=== PATIENT | male | born 1990 | race Caucasian/White ===

== ENCOUNTER 2016-09-02 17:58 | Emergency (ER) | payer BC ==
--- OUTSIDE RECORDS SUMMARY | 2016-09-02 18:22 | XMS REPORT | Summary of Care ---
:1990 Author Organization [facility] Address [address] [place] [address] Care Team Providers Name Role Phone Cherrie Palmerfer Marleni Primary Care Physician Encounter Date(s): 05/16/16 - 05/16/16 [facility] [address], [address] [place], [place] [address] Discharge Disposition: 01 Discharged to Home or Self Care Attending Physician: Lamberto Bro MD Referring Physician: Lamberto Bro MD Vital Signs Most recent to oldest [Reference Range]: 1 Peripheral Pulse Rate [60-100 bpm] 83 bpm (05/16/16 9:11 AM) Blood Pressure [90-130/60-90 mmHg] 150/100mmHg *HI* (05/16/16 9:11 AM) Mean Arterial Pressure, Cuff 117 mmHg (05/16/16 9:11 AM) Most recent to oldest [Reference Range]: 1 Height/Length Measured 178 cm (05/16/16 9:11 AM) Problem List Condition Effective Dates Status Health Status Informant Deficiency of testosterone Active biosynthesis(Confirmed) Diabetes(Confirmed) Active Diabetic polyneuropathy(Confirmed) Active Chronic GERD(Confirmed) Active Hyperbilirubinemia(Confirmed) Active Hypercholesteremia(Confirmed) Active Hypertension(Confirmed) Active Morbid obesity(Confirmed) Active Obsessive behavior(Confirmed) Active Spondylolisthesis(Confirmed) Active Allergies, Adverse Reactions, Alerts No Known Medication Allergies Medications Augmentin 875 mg-125 mg oral tablet 875 mg, Oral, q12hr interval, # 10 tab(s), 0 Refill(s), Start Date: 08/15/15 13: 21:00 CDT Start Date: 08/15/15 Stop Date: 09/04/15 Status: Discontinuedcalcitriol 0.5 mcg oral capsule 1 cap(s), Oral, Daily, # 30 cap(s), 6 Refill(s), Start Date: 12/05/15 11:59:00 CDT, Pharmacy: [place], [place] Start Date: 12/05/15 Stop Date: 04/15/16 Status: CompletedCymbalta 20 mg oral delayed release capsule 1 cap(s), Oral, Daily, do not crush or chew, # 30 cap(s), 1 Refill(s), Start Date: 12/04/15 9:40:00 CDT, Pharmacy: [place], [place] Special Instructions: do not crush or chew Start Date: 12/04/15 Stop Date: 12/28/15 Status: DiscontinuedDULoxetine 40 mg oral delayed release capsule 1 cap(s), Oral, Daily, # 30 cap(s), 2 Refill(s), Start Date: 12/28/15 9:07:00 CDT, Pharmacy: [place], [place] Start Date: 12/28/15 Stop Date: 02/29/16 Status: DiscontinuedDULoxetine 60 mg oral delayed release capsule 1 cap(s), Oral, Daily, Cancel 40 mg prescription, do not crush or chew, # 30 cap (s), 3 Refill(s), Start Date: 01/25/16 20:59:00 CDT, Pharmacy: [place], [place] Special Instructions: Cancel 40 mg prescription, do not crush or chew Start Date: 01/25/16 Status: Orderedfolic acid 1 mg oral tablet 1 tab(s), Oral, Daily, # 30 tab(s), 0 Refill(s), Start Date: 09/04/15 9:12:00 CDT, Pharmacy: [place], [place] Start Date: 09/04/15 Stop Date: 12/04/15 Status: Discontinuedgabapentin 100 mg oral capsule 2 cap(s), Oral, TID, # 180 cap(s), 1 Refill(s), Start Date: 09/14/15 9:02:00 CDT , Pharmacy: [place], [place] Start Date: 09/14/15 Stop Date: 10/12/15 Status: Completedgabapentin 300 mg oral capsule 1 cap(s), Oral, TID, # 90 cap(s), 0 Refill(s), Start Date: 10/12/15 11:29:00 CDT , Pharmacy: [facility] [place], [place] Start Date: 10/12/15 Stop Date: 12/04/15 Status: Discontinuedgabapentin 600 mg oral tablet 1 tab(s), Oral, QID, # 120 tab(s), 1 Refill(s), Start Date: 02/29/16 9:37:42 FORENSIC TECHNICIAN , Pharmacy: [facility] [place], [place] Start Date: 02/29/16 Stop Date: 03/29/16 Status: Discontinuedgabapentin 600 mg oral tablet 1 tab(s), Oral, QID, # 120 tab(s), 1 Refill(s), Start Date: 12/28/15 9:14:00 CDT , Pharmacy: [facility] [place] Start Date: 12/28/15 Stop Date: 02/29/16 Status: Discontinuedglimepiride 2 mg oral tablet 1 tab(s), Oral, Daily, 0 Refill(s), Start Date: 08/12/15 17:19:00 CDT Start Date: 08/12/15 Stop Date: 08/15/15 Status: Discontinuedlactulose 10 g/15 mL oral syrup 15 mL, Oral, Daily, # 450 mL, 0 Refill(s), Start Date: 09/04/15 9:12:00 CDT, Pharmacy: [facility] [place] Start Date: 09/04/15 Stop Date: 10/12/15 Status: DiscontinuedLantus 100 units/mL subcutaneous solution 10 units, Subcutaneous, HS, 0 Refill(s), Start Date: 08/12/15 17:19:00 CDT Start Date: 08/12/15 Stop Date: 12/04/15 Status: DiscontinuedLantus 100 units/mL subcutaneous solution 10 units, Subcutaneous, Daily, If fasting blood glucose is>130, increase by 2 units every 3 days. rotate injection sites, # 10 mL, 0 Refill(s), Start Date: 03/29/16 8:48:00 FORENSIC TECHNICIAN, Pharmacy: [place], [place] Special Instructions: If fasting blood glucose is>130, increase by 2 units every 3 days. rotate injection sites Start Date: 03/29/16 Stop Date: 04/28/16 Status: Orderedlisinopril 10 mg oral tablet 1 tab(s), Oral, Daily, 0 Refill(s), Start Date: 08/12/15 17:19:00 CDT Start Date: 08/12/15 Stop Date: 09/14/15 Status: Discontinuedlisinopril-hydrochlorothiazide 20 mg-12.5 mg oral tablet 1 tab(s), Oral, Daily, # 30 tab(s), 11 Refill(s), Start Date: 09/14/15 8:53:00 CDT, Pharmacy: [facility] [place] Start Date: 09/14/15 Stop Date: 12/04/15 Status: Discontinuedlisinopril-hydrochlorothiazide 20 mg-12.5 mg oral tablet 1 tab(s), Oral, Daily, # 30 tab(s), 11 Refill(s), Start Date: 12/28/15 9:19:15 CDT, Pharmacy: [facility] [place] Start Date: 12/28/15 Status: OrderedLORazepam 0.5 mg oral tablet 1 tab(s), Oral, TID, PRN for anxiety, # 90 tab(s), 0 Refill(s), Start Date: 9:06:00 FORENSIC TECHNICIAN, Pharmacy: [place], [place] Start Date: 03/29/16 Stop Date: 04/27/16 Status: CompletedLORazepam 0.5 mg oral tablet 1 tab(s), Oral, TID, PRN for anxiety, # 90 tab(s), 0 Refill(s), Start Date: 11:03:09 FORENSIC TECHNICIAN, Pharmacy: [place], [place] Start Date: 04/27/16 Stop Date: 05/27/16 Status: OrderedLORazepam 1 mg oral tablet 1 tab(s), Oral, TID, PRN for anxiety, # 12 tab(s), 0 Refill(s), Start Date: 13:29:00 CDT, Pharmacy: [facility] Start Date: 10/26/15 Stop Date: 12/04/15 Status: CompletedLORazepam 1 mg oral tablet 1 tab(s), Oral, TID, PRN for anxiety, # 12 tab(s), 0 Refill(s), Start Date: 9:08:06 CDT, Pharmacy: [place], [place] Start Date: 12/28/15 Stop Date: 01/25/16 Status: CompletedLORazepam 1 mg oral tablet 1 tab(s), Oral, TID, PRN for anxiety, # 30 tab(s), 1 Refill(s), Start Date: 20:59:05 CDT, Pharmacy: [place] Start Date: 01/25/16 Stop Date: 02/29/16 Status: DiscontinuedLORazepam 1 mg oral tablet 1 tab(s), Oral, TID, PRN for anxiety, # 30 tab(s), 1 Refill(s), Start Date: 9:37:39 FORENSIC TECHNICIAN, Pharmacy: [place] Start Date: 02/29/16 Stop Date: 03/29/16 Status: DiscontinuedLORazepam 1 mg oral tablet 1 tab(s), Oral, TID, PRN for anxiety, # 12 tab(s), 0 Refill(s), Start Date: 05/19 9:41:29 CDT, Pharmacy: [place] Start Date: 12/04/15 Stop Date: 12/28/15 Status: DiscontinuedLyrica 100 mg oral capsule 1 cap(s), Oral, TID, Patient failed trial of gabapentin, # 90 cap(s), 2 Refill(s ), Start Date: 12/07/15 15:35:00 CDT, Pharmacy: [place], [place] Special Instructions: Patient failed trial of gabapentin Start Date: 12/07/15 Stop Date: 12/28/15 Status: DiscontinuedLyrica 150 mg oral capsule 1 cap(s), Oral, TID, 0 Refill(s), Start Date: 05/16/16 9:14:00 FORENSIC TECHNICIAN Start Date: 05/16/16 Status: OrderedLyrica 75 mg oral capsule 1 cap(s), Oral, BID, # 60 cap(s), 0 Refill(s), Start Date: 04/21/16 9:48:34 FORENSIC TECHNICIAN , Pharmacy: [place], [place] Start Date: 04/21/16 Stop Date: 05/16/16 Status: CompletedLyrica 75 mg oral capsule 1 cap(s), Oral, BID, # 60 cap(s), 0 Refill(s), Start Date: 03/29/16 8:47:00 FORENSIC TECHNICIAN , Pharmacy: [place] Start Date: 03/29/16 Stop Date: 04/21/16 Status: Completedmeloxicam 15 mg oral tablet 1 tab(s), Oral, Daily, # 30 tab(s), 0 Refill(s), Start Date: 03/02/16 9:15:00 FORENSIC TECHNICIAN, Pharmacy: [place], [place] Start Date: 03/02/16 Stop Date: 04/15/16 Status: CompletedONETOUCH NICK ULTRA BL 0 Refill(s), Supply Start Date: 09/14/15 Status: OrderedPen [place] Mini 31G 5mm 100 EA, Subcutaneous, Daily, # 1 boxes, 2 Refill(s), Pharmacy: [place], [place], Supply Start Date: 03/29/16 Stop Date: 12/24/16 Status: OrderedpredniSONE 10 mg oral tablet 1 tab(s), Oral, Daily, # 30 tab(s), 0 Refill(s), Start Date: 03/22/16 8:27:00 FORENSIC TECHNICIAN, Pharmacy: [place] Start Date: 03/22/16 Stop Date: 05/16/16 Status: CompletedpredniSONE 20 mg oral tablet 2 tab(s), Oral, Daily, # 20 tab(s), 0 Refill(s), Start Date: 10/02/15 14:02:00 CDT, Pharmacy: [place] Start Date: 10/02/15 Stop Date: 10/12/15 Status: CompletedProtonix 40 mg oral delayed release tablet 1 tab(s), Oral, Daily, # 30 tab(s), 2 Refill(s), Start Date: 09/14/15 8:51:45 CDT, Pharmacy: [place] Start Date: 09/14/15 Stop Date: 12/04/15 Status: DiscontinuedProtonix 40 mg oral delayed release tablet 1 tab(s), Oral, Daily, # 30 tab(s), 0 Refill(s), Start Date: 08/15/15 13:22:00 CDT Start Date: 08/15/15 Stop Date: 09/14/15 Status: DiscontinuedsulfaSALAzine 500 mg oral tablet 1 tab(s), Oral, BID, # 60 tab(s), 0 Refill(s), Start Date: 04/15/16 10:11:00 FORENSIC TECHNICIAN , Pharmacy: [place] Start Date: 04/15/16 Stop Date: 05/16/16 Status: DiscontinuedTest Strips Other (See Comment) 100 EA, Subcutaneous, Daily, 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, # 1 boxes, 3 Refill (s), Pharmacy: [place], [place], Supply Special Instructions: 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 Start Date: 09/14/15 Stop Date: 09/08/16 Status: Orderedtestosterone 20.25 mg/1.25 g (1.62%) transdermal gel 1 packet(s), Topical, qAM, May substitute any covered transdermal testosterone gel/cream, # 30 EA, 5 Refill(s), Start Date: 12/07/15 10:10:00 CDT, Pharmacy: [place], [place] Special Instructions: May substitute any covered transdermal testosterone gel/ cream Start Date: 12/07/15 Stop Date: 12/28/15 Status: Discontinuedtestosterone cypionate 100 mg/mL intramuscular solution 1 mL, IM, q2wk, # 3 mL, 5 Refill(s), Start Date: 12/28/15 9:09:00 CDT, Pharmacy : [place], [place] Start Date: 12/28/15 Status: OrderedtraMADol 50 mg oral tablet 2 tab(s), Oral, q8hr interval, PRN for pain, take with tylenol, # 60 tab(s), 0 Refill(s), Start Date: 10/12/15 11:32:57 CDT Special Instructions: take with tylenol Start Date: 10/12/15 Stop Date: 10/12/15 Status: CompletedtraMADol 50 mg oral tablet 2 tab(s), Oral, q8hr interval, PRN for pain, take with tylenol, X 30 days, # 180 tab(s), 1 Refill(s), Start Date: 10/20/15 13:47:13 CDT, Pharmacy: [place], [place] Special Instructions: take with tylenol Start Date: 10/20/15 Stop Date: 10/21/15 Status: CompletedtraMADol 50 mg oral tablet 2 tab(s), Oral, TID, PRN for pain, new dose, # 180 tab(s), 1 Refill(s), Start Date: 12/29/15 12:19:21 CDT, Pharmacy: [place] Special Instructions: new dose Start Date: 12/29/15 Stop Date: 02/29/16 Status: DiscontinuedtraMADol 50 mg oral tablet 1 tab(s), Oral, TID, PRN for pain, new dose, # 90 tab(s), 0 Refill(s), Start Date: 03/29/16 9:06:06 FORENSIC TECHNICIAN, Pharmacy: [place] Special Instructions: new dose Start Date: 03/29/16 Stop Date: 05/16/16 Status: CompletedtraMADol 50 mg oral tablet 2 tab(s), Oral, q12hr, PRN for pain, # 60 tab(s), 0 Refill(s), Start Date: 10/26 8:41:00 CDT Start Date: 10/27/15 Stop Date: 12/14/15 Status: DiscontinuedtraMADol 50 mg oral tablet 2 tab(s), Oral, q12hr, PRN for pain, # 120 tab(s), 0 Refill(s), Start Date: 03/18 11:16:21 CDT, Pharmacy: [place] Start Date: 12/14/15 Stop Date: 12/28/15 Status: DiscontinuedtraMADol 50 mg oral tablet 2 tab(s), Oral, q12hr, PRN for pain, # 120 tab(s), 1 Refill(s), Start Date: 9:07:54 CDT, Pharmacy: [place] Start Date: 12/28/15 Stop Date: 12/29/15 Status: CompletedtraMADol 50 mg oral tablet 2 tab(s), Oral, q12hr, PRN for pain, # 120 tab(s), 0 Refill(s), Start Date: 03/18 11:15:30 CDT, Pharmacy: [place] Start Date: 12/14/15 Stop Date: 12/14/15 Status: CompletedtraMADol 50 mg oral tablet 2 tab(s), Oral, TID, PRN for pain, new dose, # 180 tab(s), 0 Refill(s), Start Date: 02/29/16 9:37:43 FORENSIC TECHNICIAN, Pharmacy: [place], [place] Special Instructions: new dose Start Date: 02/29/16 Stop Date: 03/29/16 Status: DiscontinuedtraMADol 50 mg oral tablet 2 tab(s), Oral, q8hr interval, PRN for pain, take with tylenol, # 180 tab(s), 1 Refill(s), Start Date: 10/21/15 13:18:07 CDT, Pharmacy: [place] Special Instructions: take with tylenol Start Date: 10/21/15 Stop Date: 10/27/15 Status: CompletedtraMADol 50 mg oral tablet 2 tab(s), Oral, q12hr, PRN for pain, # 120 tab(s), 0 Refill(s), Start Date: 03/18 11:13:00 CDT, Pharmacy: [place] Start Date: 12/14/15 Stop Date: 12/14/15 Status: CompletedtraMADol 50 mg oral tablet 2 tab(s), Oral, q8hr interval, PRN for pain, take with tylenol, # 60 tab(s), 0 Refill(s), Start Date: 10/02/15 14:38:00 CDT, Pharmacy: [place] Special Instructions: take with tylenol Start Date: 10/02/15 Stop Date: 10/12/15 Status: CompletedtraMADol 50 mg oral tablet 2 tab(s), Oral, q8hr interval, PRN for pain, take with tylenol, # 60 tab(s), 0 Refill(s), Start Date: 10/12/15 11:33:36 CDT Special Instructions: take with tylenol Start Date: 10/12/15 Stop Date: 10/20/15 Status: CompletedTums 500 mg oral tablet, chewable 1 tab(s), Chewed, TID, PRN indigestion, 0 Refill(s), Start Date: 08/15/15 13:21: 00 CDT Start Date: 08/15/15 Stop Date: 09/02/15 Status: CompletedValium 10 mg oral tablet 1 tab(s), Oral, ONETIME, PRN for anxiety, Take 1 hour prior to MRI, # 1 tab(s), 0 Refill(s), Start Date: 04/15/16 11:21:00 FORENSIC TECHNICIAN, called to pharmacy (Rx) Special Instructions: Take 1 hour prior to MRI Start Date: 04/15/16 Stop Date: 05/16/16 Status: CompletedValium 5 mg oral tablet 1 tab(s), Oral, ONETIME, # 1 tab(s), 0 Refill(s), Start Date: 12/18/15 14:13:00 CDT, Pharmacy: [place], [place] Start Date: 12/18/15 Stop Date: 12/28/15 Status: DiscontinuedVictoza 18 mg/3 mL subcutaneous solution 1.2 mg, Subcutaneous, Daily, # 6 mL, 0 Refill(s), Start Date: 09/14/15 9:02:00 CDT, Pharmacy: [place], [place] Start Date: 09/14/15 Stop Date: 12/04/15 Status: Discontinued Results No data available for this section Immunizations No data available for this section Procedures Procedure Date Related Diagnosis Body Site Myringotomy 1990 Arm1 Rhinoplasty [place] tooth2 1left arm needed to be [id number] Social History No data available for this section Assessment and Plan No data available for this section
--- OUTSIDE RECORDS SUMMARY | 2016-09-02 18:22 | XMS REPORT | Continuity of Care Document ---
:1990 Author Organization ([facility]) Address [address] [place] [address] Phone [phone] Care Team Providers Name Role Phone BenjaminFreddyDuffyDaren ga Primary Care Provider [phone] Source Comments This disclosure is being made pursuant to the Care Everywhere program, applicable federal and state laws, and may not contain all informaitonavailable regarding this patient. ([facility]) Active Allergies and Adverse Reactions No Known Allergies Current Medications Prescription Sig. Disp. Refills Start Date End Date Status LANTUS 100 unit/mL Inject 10 Units 07/15/2015 Active injection vial subcutaneously at bedtime. lisinopril-hydrochlor Take 1 tablet by mouth 09/14/2015 Active othiazide 20-12.5 mg daily. per tablet gabapentin 100 mg Take 200 mg by mouth 3 09/14/2015 Active capsule times daily. SUPPLY ONE TOUCH 09/14/2015 Active ULTRA test strips pantoprazole 40 mg EC Take 40 mg by mouth 09/14/2015 Active tablet daily. Active Problems Problem Noted Date Abnormal liver enzymes 09/28/2015 Chest pain, unspecified 12/23/2003 Most Recent Encounters Date Type Specialty Providers Description 08/16/2016 Telephone Urology Pedro Potts MD Chief Comp: External Referral Social History Tobacco Use Types Packs/Day Years Used Date Passive Smoke Exposure - Never Smoker Cigarettes 1 Smokeless Tobacco: Former User Tobacco Cessation:Counseling Given: Yes Comments: Alcohol Use Drinks/Week oz/Week Comments No Last Filed Vital Signs Vital Sign Reading Time Taken Blood Pressure 123/58 09/28/2015 11:00 AM CDT Pulse 114 09/28/2015 11:00 AM CDT Temperature 36.8 C (98.2 F) 09/28/2015 11:00 AM CDT Respiratory Rate 20 12/23/2003 1:01 PM CDT Height 1.778 m (5' 10") 09/28/2015 11:00 AM CDT Weight 109 kg (240 lb 4.8 oz) 09/28/2015 11:00 AM CDT Body Mass Index 34.48 09/28/2015 11:00 AM CDT Oxygen Saturation - - Plan of Care Date Type Specialty Providers Description 09/29/2016 Appointment Urology Perdo Potts MD [address] [place] [address] [phone] (Fax) Chief Comp: Patient Anuradha CAROL Ibarra [address] [place] [address] [phone] (Fax) Reported Reason For Visit Health Maintenance Due Date Last Done Comments Hepatitis B Vaccine (1 of 3 - Primary Series) 1990 Tdap Vaccine 12/25/1999 Lipid Disorder Screening 2006 MMR Vaccine 2006 Td Vaccine 2006 Varicella Vaccine (1 of 2 - Adult - No Evidence of 2006 Immunity) Influenza Vaccine: Seasonal (Season Ended) 2016 Results from Last 3 Months Not on file
--- OUTSIDE RECORDS SUMMARY | 2016-09-02 18:22 | XMS REPORT | Summary of Care ---
:1990 Author Organization [facility] Address [address] [place] [address] Care Team Providers Name Role Phone Cherrie Palmerfer Marleni Primary Care Physician Encounter Date(s): 04/15/16 - 04/15/16 [facility] Yeimi Cross, [address] [place], [place] [address] Discharge Diagnosis: Pain in right hip Discharge Disposition: 01 Discharged to Home or Self Care Attending Physician: Lamberto Bro MD Referring Physician: Lamberto Bro MD Vital Signs Most recent to oldest [Reference Range]: 1 Peripheral Pulse Rate [60-100 bpm] 89 bpm (04/15/16 9:25 AM) Blood Pressure [90-130/60-90 mmHg] 136/98mmHg *HI* (04/15/16 9:25 AM) Mean Arterial Pressure, Cuff 111 mmHg (04/15/16 9:25 AM) Height/Length Measured 178 cm (04/15/16 9:25 AM) Weight Dosing 113.10 kg1 (04/15/16 9:28 AM) Weight Measured 113.1 kg (04/15/16 9:25 AM) BSA Measured 2.29 m2 (04/15/16 9:25 AM) Body Mass Index Measured 35.7 kg/m2 (04/15/16 9:25 AM) 1Result Comment: This result was because the dosing weight was either not entered or it is>30 days old. This result is based off: Weight Measured April 15, 2016 09:25:00 SENIOR ENGINEERING SPECIALIST by Leelee Thompson CMA Problem List Condition Effective Dates Status Health [...] Refill(s), Start Date: 12/05/15 11:59:00 CDT, Pharmacy: [place], [place] Start Date: 12/05/15 Stop Date: 04/15/16 Status: CompletedCymbalta 20 mg oral delayed release capsule 1 cap(s), Oral, Daily, do not crush or chew, # 30 cap(s), 1 Refill(s), Start Date: 12/04/15 9:40:00 CDT, Pharmacy: [place], [place] Start Date: 12/04/15 Stop Date: 12/28/15 Status: DiscontinuedDULoxetine 40 mg oral delayed release capsule 1 cap(s), Oral, Daily, # 30 cap(s), 2 Refill(s), Start Date: 12/28/15 9:07:00 CDT, Pharmacy: [place], [place] Start Date: 12/28/15 Stop Date: 02/29/16 Status: DiscontinuedDULoxetine 60 mg oral delayed release capsule 1 cap(s), Oral, Daily, Cancel 40 mg prescription, do not crush or chew, # 30 cap (s), 3 Refill(s), Start Date: 01/25/16 20:59:00 CDT, Pharmacy: [place], [place] Start Date: 01/25/16 Status: Orderedfolic acid 1 mg oral tablet 1 tab(s), Oral, Daily, # 30 tab(s), 0 Refill(s), Start Date: 09/04/15 9:12:00 CDT, Pharmacy: [place], [place] Start Date: 09/04/15 Stop Date: 12/04/15 Status: Discontinuedgabapentin 100 mg oral capsule 2 cap(s), Oral, TID, # 180 cap(s), 1 Refill(s), Start Date: 09/14/15 9:02:00 CDT , Pharmacy: [place], [place] Start Date: 09/14/15 Stop Date: 10/12/15 Status: Completedgabapentin 300 mg oral capsule 1 cap(s), Oral, TID, # 90 cap(s), 0 Refill(s), Start Date: 10/12/15 11:29:00 CDT , Pharmacy: [facility], [place] Start Date: 10/12/15 Stop Date: 12/04/15 Status: Discontinuedgabapentin 600 mg oral tablet 1 tab(s), Oral, QID, # 120 tab(s), 1 Refill(s), Start Date: 02/29/16 9:37:42 SENIOR ENGINEERING SPECIALIST , Pharmacy: [place], [place] Start Date: 02/29/16 Stop Date: 03/29/16 Status: Discontinuedgabapentin 600 mg oral tablet 1 tab(s), Oral, QID, # 120 tab(s), 1 Refill(s), Start Date: 12/28/15 9:14:00 CDT , Pharmacy: [place] Start Date: 12/28/15 Stop Date: 02/29/16 Status: Discontinuedglimepiride 2 mg oral tablet 1 tab(s), Oral, Daily, 0 Refill(s), Start Date: 08/12/15 17:19:00 CDT Start Date: 08/12/15 Stop Date: 08/15/15 Status: Discontinuedlactulose 10 g/15 mL oral syrup 15 mL, Oral, Daily, # 450 mL, 0 Refill(s), Start Date: 09/04/15 9:12:00 CDT, Pharmacy: [place], [place] Start Date: 09/04/15 Stop Date: 10/12/15 Status: DiscontinuedLantus 100 units/mL subcutaneous solution 10 units, Subcutaneous, HS, 0 Refill(s), Start Date: 08/12/15 17:19:00 CDT Start Date: 08/12/15 Stop Date: 12/04/15 Status: DiscontinuedLantus 100 units/mL subcutaneous solution 10 units, Subcutaneous, Daily, If fasting blood glucose is>130, increase by 2 units every 3 days. rotate injection sites, # 10 mL, 0 Refill(s), Start Date: 03/29/16 8:48:00 SENIOR ENGINEERING SPECIALIST, Pharmacy: [place], [place] Start Date: 03/29/16 Stop Date: 04/28/16 Status: Orderedlisinopril 10 mg oral tablet 1 tab(s), Oral, Daily, 0 Refill(s), Start Date: 08/12/15 17:19:00 CDT Start Date: 08/12/15 Stop Date: 09/14/15 Status: Discontinuedlisinopril-hydrochlorothiazide 20 mg-12.5 mg oral tablet 1 tab(s), Oral, Daily, # 30 tab(s), 11 Refill(s), Start Date: 09/14/15 8:53:00 CDT, Pharmacy: [facility] [place] Start Date: 09/14/15 Stop Date: 12/04/15 Status: Discontinuedlisinopril-hydrochlorothiazide 20 mg-12.5 mg oral tablet 1 tab(s), Oral, Daily, # 30 tab(s), 11 Refill(s), Start Date: 12/28/15 9:19:15 CDT, Pharmacy: [place], [place] Start Date: 12/28/15 Status: OrderedLORazepam 0.5 mg oral tablet 1 tab(s), Oral, TID, PRN for anxiety, # 90 tab(s), 0 Refill(s), Start Date: 9:06:00 SENIOR ENGINEERING SPECIALIST, Pharmacy: [place] Start Date: 03/29/16 Status: OrderedLORazepam 1 mg oral tablet 1 tab(s), Oral, TID, PRN for anxiety, # 12 tab(s), 0 Refill(s), Start Date: 13:29:00 CDT, Pharmacy: [facility] [place] Start Date: 10/26/15 Stop Date: 12/04/15 Status: CompletedLORazepam 1 mg oral tablet 1 tab(s), Oral, TID, PRN for anxiety, # 12 tab(s), 0 Refill(s), Start Date: 9:08:06 CDT, Pharmacy: [place] Start Date: 12/28/15 Stop Date: 01/25/16 Status: CompletedLORazepam 1 mg oral tablet 1 tab(s), Oral, TID, PRN for anxiety, # 30 tab(s), 1 Refill(s), Start Date: 20:59:05 CDT, Pharmacy: [place] Start Date: 01/25/16 Stop Date: 02/29/16 Status: DiscontinuedLORazepam 1 mg oral tablet 1 tab(s), Oral, TID, PRN for anxiety, # 30 tab(s), 1 Refill(s), Start Date: 9:37:39 SENIOR ENGINEERING SPECIALIST, Pharmacy: [place] Start Date: 02/29/16 Stop Date: 03/29/16 Status: DiscontinuedLORazepam 1 mg oral tablet 1 tab(s), Oral, TID, PRN for anxiety, # 12 tab(s), 0 Refill(s), Start Date: 05/19 9:41:29 CDT, Pharmacy: [place] Start Date: 12/04/15 Stop Date: 12/28/15 Status: DiscontinuedLyrica 100 mg oral capsule 1 cap(s), Oral, TID, Patient failed trial of gabapentin, # 90 cap(s), 2 Refill(s ), Start Date: 12/07/15 15:35:00 CDT, Pharmacy: [place] Start Date: 12/07/15 Stop Date: 12/28/15 Status: DiscontinuedLyrica 75 mg oral capsule 1 cap(s), Oral, BID, # 60 cap(s), 0 Refill(s), Start Date: 03/29/16 8:47:00 SENIOR ENGINEERING SPECIALIST , Pharmacy: [place], [place] Start Date: 03/29/16 Status: Orderedmeloxicam 15 mg oral tablet 1 tab(s), Oral, Daily, # 30 tab(s), 0 Refill(s), Start Date: 03/02/16 9:15:00 SENIOR ENGINEERING SPECIALIST, Pharmacy: [place] Start Date: 03/02/16 Stop Date: 04/15/16 Status: CompletedONETOUCH NICK ULTRA BL 0 Refill(s), Supply Start Date: 09/14/15 Status: OrderedPen [place] Mini 31G 5mm 100 EA, Subcutaneous, Daily, # 1 boxes, 2 Refill(s), Pharmacy: [place], [place], Supply Start Date: 03/29/16 Stop Date: 12/24/16 Status: OrderedpredniSONE 10 mg oral tablet 1 tab(s), Oral, Daily, # 30 tab(s), 0 Refill(s), Start Date: 03/22/16 8:27:00 SENIOR ENGINEERING SPECIALIST, Pharmacy: [place] Start Date: 03/22/16 Status: OrderedpredniSONE 20 mg oral tablet 2 tab(s), Oral, Daily, # 20 tab(s), 0 Refill(s), Start Date: 10/02/15 14:02:00 CDT, Pharmacy: [place] Start Date: 10/02/15 Stop Date: 10/12/15 Status: CompletedProtonix 40 mg oral delayed release tablet 1 tab(s), Oral, Daily, # 30 tab(s), 2 Refill(s), Start Date: 09/14/15 8:51:45 CDT, Pharmacy: [place] Start Date: 09/14/15 Stop Date: 12/04/15 Status: DiscontinuedProtonix 40 mg oral delayed release tablet 1 tab(s), Oral, Daily, # 30 tab(s), 0 Refill(s), Start Date: 08/15/15 13:22:00 CDT Start Date: 08/15/15 Stop Date: 09/14/15 Status: DiscontinuedsulfaSALAzine 500 mg oral tablet 1 tab(s), Oral, BID, # 60 tab(s), 0 Refill(s), Start Date: 04/15/16 10:11:00 SENIOR ENGINEERING SPECIALIST , Pharmacy: [place] Start Date: 04/15/16 Status: OrderedTest Strips Other (See Comment) 100 EA, Subcutaneous, Daily, 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, # 1 boxes, 3 Refill (s), Pharmacy: [place], [place], Supply Start Date: 09/14/15 Stop Date: 09/08/16 Status: Orderedtestosterone 20.25 mg/1.25 g (1.62%) transdermal gel 1 packet(s), Topical, qAM, May substitute any covered transdermal testosterone gel/cream, # 30 EA, 5 Refill(s), Start Date: 12/07/15 10:10:00 CDT, Pharmacy: [place], [place] Start Date: 12/07/15 Stop Date: 12/28/15 Status: Discontinuedtestosterone cypionate 100 mg/mL intramuscular solution 1 mL, IM, q2wk, # 3 mL, 5 Refill(s), Start Date: 12/28/15 9:09:00 CDT, Pharmacy : [place], [place] Start Date: 12/28/15 Status: OrderedtraMADol 50 mg oral tablet 2 tab(s), Oral, q8hr interval, PRN for pain, take with tylenol, # 60 tab(s), 0 Refill(s), Start Date: 10/12/15 11:32:57 CDT Start Date: 10/12/15 Stop Date: 10/12/15 Status: CompletedtraMADol 50 mg oral tablet 2 tab(s), Oral, q8hr interval, PRN for pain, take with tylenol, X 30 days, # 180 tab(s), 1 Refill(s), Start Date: 10/20/15 13:47:13 CDT, Pharmacy: [place] Start Date: 10/20/15 Stop Date: 10/21/15 Status: CompletedtraMADol 50 mg oral tablet 2 tab(s), Oral, TID, PRN for pain, new dose, # 180 tab(s), 1 Refill(s), Start Date: 12/29/15 12:19:21 CDT, Pharmacy: [place] Start Date: 12/29/15 Stop Date: 02/29/16 Status: DiscontinuedtraMADol 50 mg oral tablet 1 tab(s), Oral, TID, PRN for pain, new dose, # 90 tab(s), 0 Refill(s), Start Date: 03/29/16 9:06:06 SENIOR ENGINEERING SPECIALIST, Pharmacy: [place] Start Date: 03/29/16 Stop Date: 04/28/16 Status: OrderedtraMADol 50 mg oral tablet 2 tab(s), Oral, q12hr, PRN for pain, # 60 tab(s), 0 Refill(s), Start Date: 10/26 8:41:00 CDT Start Date: 10/27/15 Stop Date: 12/14/15 Status: DiscontinuedtraMADol 50 mg oral tablet 2 tab(s), Oral, q12hr, PRN for pain, # 120 tab(s), 0 Refill(s), Start Date: 03/18 11:16:21 CDT, Pharmacy: [facility] [place] Start Date: 12/14/15 Stop Date: 12/28/15 Status: DiscontinuedtraMADol 50 mg oral tablet 2 tab(s), Oral, q12hr, PRN for pain, # 120 tab(s), 1 Refill(s), Start Date: 9:07:54 CDT, Pharmacy: [place] Start Date: 12/28/15 Stop Date: 12/29/15 Status: CompletedtraMADol 50 mg oral tablet 2 tab(s), Oral, q12hr, PRN for pain, # 120 tab(s), 0 Refill(s), Start Date: 03/18 11:15:30 CDT, Pharmacy: [place] Start Date: 12/14/15 Stop Date: 12/14/15 Status: CompletedtraMADol 50 mg oral tablet 2 tab(s), Oral, TID, PRN for pain, new dose, # 180 tab(s), 0 Refill(s), Start Date: 02/29/16 9:37:43 SENIOR ENGINEERING SPECIALIST, Pharmacy: [facility] [place] Start Date: 02/29/16 Stop Date: 03/29/16 Status: DiscontinuedtraMADol 50 mg oral tablet 2 tab(s), Oral, q8hr interval, PRN for pain, take with tylenol, # 180 tab(s), 1 Refill(s), Start Date: 10/21/15 13:18:07 CDT, Pharmacy: [place] Start Date: 10/21/15 Stop Date: 10/27/15 Status: CompletedtraMADol 50 mg oral tablet 2 tab(s), Oral, q12hr, PRN for pain, # 120 tab(s), 0 Refill(s), Start Date: 03/18 11:13:00 CDT, Pharmacy: [place] Start Date: 12/14/15 Stop Date: 12/14/15 Status: CompletedtraMADol 50 mg oral tablet 2 tab(s), Oral, q8hr interval, PRN for pain, take with tylenol, # 60 tab(s), 0 Refill(s), Start Date: 10/02/15 14:38:00 CDT, Pharmacy: [place] Start Date: 10/02/15 Stop Date: 10/12/15 Status: CompletedtraMADol 50 mg oral tablet 2 tab(s), Oral, q8hr interval, PRN for pain, take with tylenol, # 60 tab(s), 0 Refill(s), Start Date: 10/12/15 11:33:36 CDT Start Date: 10/12/15 Stop Date: 10/20/15 Status: CompletedTums 500 mg oral tablet, chewable 1 tab(s), Chewed, TID, PRN indigestion, 0 Refill(s), Start Date: 08/15/15 13:21: 00 CDT Start Date: 08/15/15 Stop Date: 09/02/15 Status: CompletedValium 10 mg oral tablet 1 tab(s), Oral, ONETIME, PRN for anxiety, Take 1 hour prior to MRI, # 1 tab(s), 0 Refill(s), Start Date: 04/15/16 11:21:00 SENIOR ENGINEERING SPECIALIST, called to pharmacy (Rx) Start Date: 04/15/16 Status: OrderedValium 5 mg oral tablet 1 tab(s), Oral, ONETIME, # 1 tab(s), 0 Refill(s), Start Date: 12/18/15 14:13:00 CDT, Pharmacy: [facility] [place] Start Date: 12/18/15 Stop Date: 12/28/15 Status: DiscontinuedVictoza 18 mg/3 mL subcutaneous solution 1.2 mg, Subcutaneous, Daily, # 6 mL, 0 Refill(s), Start Date: 09/14/15 9:02:00 CDT, Pharmacy: [facility] [place] Start Date: 09/14/15 Stop Date: 12/04/15 Status: Discontinued Results No data available for this section Immunizations No data available for this section Procedures Procedure Date Related Diagnosis Body Site Myringotomy 1990 Arm1 Rhinoplasty [place] tooth2 1left arm needed to be [id number] Social History No data available for this section Assessment and Plan No data available for this section
--- OUTSIDE RECORDS SUMMARY | 2016-09-02 18:23 | XMS REPORT | Summary of Care ---
:1990 Author Organization [facility] Address [facility] [place] [address]- Care Team Providers Name Role Phone SpencerCharleneMaty Marleni Primary Care Physician Encounter Date(s): 04/26/16 - 04/26/[address] [address]- [facility] Discharge Disposition: 01 Discharged to Home or Self Care Attending Physician: Lamberto Bro MD Admitting Physician: Lamberto Bro MD Vital Signs No data available for this section Problem List Condition Effective Dates Status Health [...] Refill(s), Start Date: 12/05/15 11:59:00 CDT, Pharmacy: [facility] [place] [place] Start Date: 12/05/15 Stop Date: 04/15/16 Status: CompletedCymbalta 20 mg oral delayed release capsule 1 cap(s), Oral, Daily, do not crush or chew, # 30 cap(s), 1 Refill(s), Start Date: 12/04/15 9:40:00 CDT, Pharmacy: [place], [place] Start Date: 12/04/15 Stop Date: 12/28/15 Status: DiscontinuedDULoxetine 40 mg oral delayed release capsule 1 cap(s), Oral, Daily, # 30 cap(s), 2 Refill(s), Start Date: 12/28/15 9:07:00 CDT, Pharmacy: [place] Start Date: 12/28/15 Stop Date: 02/29/16 Status: DiscontinuedDULoxetine 60 mg oral delayed release capsule 1 cap(s), Oral, Daily, Cancel 40 mg prescription, do not crush or chew, # 30 cap (s), 3 Refill(s), Start Date: 01/25/16 20:59:00 CDT, Pharmacy: [place] Start Date: 01/25/16 Status: Orderedfolic acid 1 mg oral tablet 1 tab(s), Oral, Daily, # 30 tab(s), 0 Refill(s), Start Date: 09/04/15 9:12:00 CDT, Pharmacy: [place] Start Date: 09/04/15 Stop Date: 12/04/15 Status: Discontinuedgabapentin 100 mg oral capsule 2 cap(s), Oral, TID, # 180 cap(s), 1 Refill(s), Start Date: 09/14/15 9:02:00 CDT , Pharmacy: [place] Start Date: 09/14/15 Stop Date: 10/12/15 Status: Completedgabapentin 300 mg oral capsule 1 cap(s), Oral, TID, # 90 cap(s), 0 Refill(s), Start Date: 10/12/15 11:29:00 CDT , Pharmacy: [facility], [place] Start Date: 10/12/15 Stop Date: 12/04/15 Status: Discontinuedgabapentin 600 mg oral tablet 1 tab(s), Oral, QID, # 120 tab(s), 1 Refill(s), Start Date: 02/29/16 9:37:42 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 , Pharmacy: [place] Start Date: 02/29/16 Stop Date: 03/29/16 Status: Discontinuedgabapentin 600 mg oral tablet 1 tab(s), Oral, QID, # 120 tab(s), 1 Refill(s), Start Date: 12/28/15 9:14:00 CDT , Pharmacy: [place] Start Date: 12/28/15 Stop Date: 02/29/16 Status: Discontinuedglimepiride 2 mg oral tablet 1 tab(s), Oral, Daily, 0 Refill(s), Start Date: 08/12/15 17:19:00 CDT Start Date: 08/12/15 Stop Date: 08/15/15 Status: Discontinuedlactulose 10 g/15 mL oral syrup 15 mL, Oral, Daily, # 450 mL, 0 Refill(s), Start Date: 09/04/15 9:12:00 CDT, Pharmacy: [place] Start Date: 09/04/15 Stop Date: 10/12/15 [...] mL, 0 Refill(s), Start Date: 03/29/16 8:48:00 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, Pharmacy: [place], [place] Start Date: 03/29/16 Stop Date: 04/28/16 Status: Orderedlisinopril 10 mg oral tablet 1 tab(s), Oral, Daily, 0 Refill(s), Start Date: 08/12/15 17:19:00 CDT Start Date: 08/12/15 Stop Date: 09/14/15 Status: Discontinuedlisinopril-hydrochlorothiazide 20 mg-12.5 mg oral tablet 1 tab(s), Oral, Daily, # 30 tab(s), 11 Refill(s), Start Date: 09/14/15 8:53:00 CDT, Pharmacy: [place] Start Date: 09/14/15 Stop Date: 12/04/15 Status: Discontinuedlisinopril-hydrochlorothiazide 20 mg-12.5 mg oral tablet 1 tab(s), Oral, Daily, # 30 tab(s), 11 Refill(s), Start Date: 12/28/15 9:19:15 CDT, Pharmacy: [place] Start Date: 12/28/15 Status: OrderedLORazepam 0.5 mg oral tablet 1 tab(s), Oral, TID, PRN for anxiety, # 90 tab(s), 0 Refill(s), Start Date: 9:06:00 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, Pharmacy: [place] Start Date: 03/29/16 Status: OrderedLORazepam 1 mg oral tablet 1 tab(s), Oral, TID, PRN for anxiety, # 12 tab(s), 0 Refill(s), Start Date: 13:29:00 CDT, Pharmacy: [place] Start Date: 10/26/15 Stop Date: 12/04/15 Status: CompletedLORazepam 1 mg oral tablet 1 tab(s), Oral, TID, PRN for anxiety, # 12 tab(s), 0 Refill(s), Start Date: 9:08:06 CDT, Pharmacy: [place] Start Date: 12/28/15 Stop Date: 01/25/16 Status: CompletedLORazepam 1 mg oral tablet 1 tab(s), Oral, TID, PRN for anxiety, # 30 tab(s), 1 Refill(s), Start Date: 20:59:05 CDT, Pharmacy: [place] Start Date: 01/25/16 Stop Date: 02/29/16 Status: DiscontinuedLORazepam 1 mg oral tablet 1 tab(s), Oral, TID, PRN for anxiety, # 30 tab(s), 1 Refill(s), Start Date: 9:37:39 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, Pharmacy: [place] Start Date: 02/29/16 Stop Date: 03/29/16 Status: DiscontinuedLORazepam 1 mg oral tablet 1 tab(s), Oral, TID, PRN for anxiety, # 12 tab(s), 0 Refill(s), Start Date: 05/19 9:41:29 CDT, Pharmacy: [place] Start Date: 12/04/15 Stop Date: 12/28/15 Status: DiscontinuedLyrica 100 mg oral capsule 1 cap(s), Oral, TID, Patient failed trial of gabapentin, # 90 cap(s), 2 Refill(s ), Start Date: 12/07/15 15:35:00 CDT, Pharmacy: [place] Start Date: 12/07/15 Stop Date: 12/28/15 Status: DiscontinuedLyrica 75 mg oral capsule 1 cap(s), Oral, BID, # 60 cap(s), 0 Refill(s), Start Date: 04/21/16 9:48:34 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 , Pharmacy: [place] Start Date: 04/21/16 Stop Date: 05/21/16 Status: OrderedLyrica 75 mg oral capsule 1 cap(s), Oral, BID, # 60 cap(s), 0 Refill(s), Start Date: 03/29/16 8:47:00 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 , Pharmacy: [place] Start Date: 03/29/16 Stop Date: 04/21/16 Status: Completedmeloxicam 15 mg oral tablet 1 tab(s), Oral, Daily, # 30 tab(s), 0 Refill(s), Start Date: 03/02/16 9:15:00 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, Pharmacy: [place] Start Date: 03/02/16 Stop Date: 04/15/16 Status: CompletedONETOUCH NICK ULTRA BL 0 Refill(s), Supply Start Date: 09/14/15 Status: OrderedPen [place] Mini 31G 5mm 100 EA, Subcutaneous, Daily, # 1 boxes, 2 Refill(s), Pharmacy: [place], Supply Start Date: 03/29/16 Stop Date: 12/24/16 Status: OrderedpredniSONE 10 mg oral tablet 1 tab(s), Oral, Daily, # 30 tab(s), 0 Refill(s), Start Date: 03/22/16 8:27:00 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, Pharmacy: [place] Start Date: 03/22/16 Status: OrderedpredniSONE 20 mg oral tablet 2 tab(s), Oral, Daily, # 20 tab(s), 0 Refill(s), Start Date: 10/02/15 14:02:00 CDT, Pharmacy: [place] Start Date: 10/02/15 Stop Date: 10/12/15 Status: CompletedProtonix 40 mg oral delayed release tablet 1 tab(s), Oral, Daily, # 30 tab(s), 2 Refill(s), Start Date: 09/14/15 8:51:45 CDT, Pharmacy: [place] Start Date: 09/14/15 Stop Date: 12/04/15 Status: DiscontinuedProtonix 40 mg oral delayed release tablet 1 tab(s), Oral, Daily, # 30 tab(s), 0 Refill(s), Start Date: 08/15/15 13:22:00 CDT Start Date: 08/15/15 Stop Date: 09/14/15 Status: DiscontinuedsulfaSALAzine 500 mg oral tablet 1 tab(s), Oral, BID, # 60 tab(s), 0 Refill(s), Start Date: 04/15/16 10:11:00 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 , Pharmacy: [place] Start Date: 04/15/16 Status: OrderedTest Strips Other (See Comment) 100 EA, Subcutaneous, Daily, 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, # 1 boxes, 3 Refill (s), Pharmacy: [place], Supply Start Date: 09/14/15 Stop Date: 09/08/16 Status: Orderedtestosterone 20.25 mg/1.25 g (1.62%) transdermal gel 1 packet(s), Topical, qAM, May substitute any covered transdermal testosterone gel/cream, # 30 EA, 5 Refill(s), Start Date: 12/07/15 10:10:00 CDT, Pharmacy: [place] Start Date: 12/07/15 Stop Date: 12/28/15 Status: Discontinuedtestosterone cypionate 100 mg/mL intramuscular solution 1 mL, IM, q2wk, # 3 mL, 5 Refill(s), Start Date: 12/28/15 9:09:00 CDT, Pharmacy : [place] Start Date: 12/28/15 Status: OrderedtraMADol 50 [...] Refill(s), Start Date: 10/20/15 13:47:13 CDT, Pharmacy: [place] Start Date: 10/20/15 Stop Date: 10/21/15 Status: CompletedtraMADol 50 mg oral tablet 2 tab(s), Oral, TID, PRN for pain, new dose, # 180 tab(s), 1 Refill(s), Start Date: 12/29/15 12:19:21 CDT, Pharmacy: [place] Start Date: 12/29/15 Stop Date: 02/29/16 Status: DiscontinuedtraMADol 50 mg oral tablet 1 tab(s), Oral, TID, PRN for pain, new dose, # 90 tab(s), 0 Refill(s), Start Date: 03/29/16 9:06:06 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, Pharmacy: [place] Start Date: 03/29/16 Stop Date: 04/28/16 Status: OrderedtraMADol 50 mg oral tablet 2 tab(s), Oral, q12hr, PRN for pain, # 60 tab(s), 0 Refill(s), Start Date: 10/26 8:41:00 CDT Start Date: 10/27/15 Stop Date: 12/14/15 Status: DiscontinuedtraMADol 50 mg oral tablet 2 tab(s), Oral, q12hr, PRN for pain, # 120 tab(s), 0 Refill(s), Start Date: 03/18 11:16:21 CDT, Pharmacy: [place] Start Date: 12/14/15 Stop Date: 12/28/15 Status: DiscontinuedtraMADol 50 mg oral tablet 2 tab(s), Oral, q12hr, PRN for pain, # 120 tab(s), 1 Refill(s), Start Date: 9:07:54 CDT, Pharmacy: [place] Start Date: 12/28/15 Stop Date: 12/29/15 Status: CompletedtraMADol 50 mg oral tablet 2 tab(s), Oral, q12hr, PRN for pain, # 120 tab(s), 0 Refill(s), Start Date: 03/18 11:15:30 CDT, Pharmacy: [facility], [place] Start Date: 12/14/15 Stop Date: 12/14/15 Status: CompletedtraMADol 50 mg oral tablet 2 tab(s), Oral, TID, PRN for pain, new dose, # 180 tab(s), 0 Refill(s), Start Date: 02/29/16 9:37:43 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, Pharmacy: [place] Start Date: 02/29/16 Stop Date: 03/29/16 Status: DiscontinuedtraMADol 50 mg oral tablet 2 tab(s), Oral, q8hr interval, PRN for pain, take with tylenol, # 180 tab(s), 1 Refill(s), Start Date: 10/21/15 13:18:07 CDT, Pharmacy: [place] Start Date: 10/21/15 Stop Date: 10/27/15 Status: CompletedtraMADol 50 mg oral tablet 2 tab(s), Oral, q12hr, PRN for pain, # 120 tab(s), 0 Refill(s), Start Date: 03/18 11:13:00 CDT, Pharmacy: [facility], [place] Start Date: 12/14/15 Stop Date: 12/14/15 Status: CompletedtraMADol 50 mg oral tablet 2 tab(s), Oral, q8hr interval, PRN for pain, take with tylenol, # 60 tab(s), 0 Refill(s), Start Date: 10/02/15 14:38:00 CDT, Pharmacy: [place] Start Date: 10/02/15 Stop Date: 10/12/15 [...] tab(s), 0 Refill(s), Start Date: 04/15/16 11:21:00 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, called to pharmacy (Rx) Start Date: 04/15/16 Status: OrderedValium 5 mg oral tablet 1 tab(s), Oral, ONETIME, # 1 tab(s), 0 Refill(s), Start Date: 12/18/15 14:13:00 CDT, Pharmacy: [place] Start Date: 12/18/15 Stop Date: 12/28/15 Status: DiscontinuedVictoza 18 mg/3 mL subcutaneous solution 1.2 mg, Subcutaneous, Daily, # 6 mL, 0 Refill(s), Start Date: 09/14/15 9:02:00 CDT, Pharmacy: [place] Start Date: 09/14/15 Stop Date: 12/04/15 Status: Discontinued Results No data available for this section Immunizations No data available for this section Procedures Procedure Date Related Diagnosis Body Site Myringotomy 1990 Arm1 Rhinoplasty [place] tooth2 1left arm needed to be [id number] Social History No data available for this section Assessment and Plan No data available for this section
--- OUTSIDE RECORDS SUMMARY | 2016-09-02 18:23 | XMS REPORT | Summary of Care ---
:1990 Author Organization [facility] Address [address] [place] [id number]- Care Team Providers Name Role Phone Herrera Holt Primary Care Physician Encounter Date(s): 09/02/15 - 09/04/[address] [id number]- [facility] Final: Alcoholic hepatitis without ascites Final: Acidosis Final: Hepatic failure, unspecified without coma Final: Body mass index (BMI) 45.0-49.9, adult Final: Alcohol dependence with withdrawal, unspecified Final: Type 2 diabetes mellitus without complications Final: Obesity, unspecified Final: medical terminologist (current) use of insulin Discharge Diagnosis: Alcoholic hepatitis Discharge Diagnosis: Abdominal pain Discharge Disposition: 01 Discharged to Home or Self Care Attending Physician: Jay Bill MD Admitting Physician: Jay Bill MD Vital Signs Most recent to oldest 1 2 3 [Reference Range]: Temperature Temporal Artery 36.7 DegC 37.1 DegC 37.0 DegC [36-38 DegC] (09/04/15 7:00 AM) (09/04/15 4:00 AM) (09/04/15 12:00 AM) Heart Rate Monitored [60-100 91 bpm 91 bpm 102 bpm bpm] (09/04/15 7:00 AM) (09/04/15 4:00 AM) *HI* (09/04/15 12:00 AM) Respiratory Rate [12-20 br/min] 18 br/min 18 br/min 18 br/min (09/04/15 7:00 AM) (09/04/15 4:00 AM) (09/04/15 12:00 AM) SpO2 99 % 98 % 98 % (09/04/15 7:00 AM) (09/04/15 4:00 AM) (09/04/15 12:00 AM) SpO2 Location Left hand Left hand Left hand (09/04/15 7:00 AM) (09/04/15 4:00 AM) (09/04/15 12:00 AM) Blood Pressure [90-130/60-90 148/77mmHg mmHg] *HI* (09/02/15 10:11 AM) Mean Arterial Pressure, Cuff 101 mmHg (09/02/15 10:11 AM) Blood Pressure [90-130/60-90 154/01hvXj3 161/74oqEp8 159/544rrBi7 mmHg] *HI* *HI* *HI* (09/04/15 7:00 AM) (09/04/15 4:00 AM) (09/04/15 12:00 AM) Mean Arterial Pressure Monitor 91 mmHg 99 mmHg 96 mmHg Measure (09/02/15 11:00 AM) (09/02/15 10:00 AM) (09/02/15 9:12 AM) Blood Pressure Location Right arm Left arm Left arm (09/04/15 7:00 AM) (09/04/15 4:00 AM) (09/04/15 12:00 AM) Most recent to oldest [Reference 1 2 3 Range]: Height/Length Measured 152 cm (09/02/15 10:11 AM) Weight Estimated 113.6 kg (09/02/15 6:30 AM) Weight Dosing 114.20 kg4 114.2 kg 113.60 kg5 (09/02/15 10:28 AM) (09/02/15 10:11 AM) (09/02/15 6:42 AM) Weight Measured 114.2 kg (09/02/15 10:11 AM) BSA Measured 2.05 m2 (09/02/15 10:11 AM) Body Mass Index Measured 49.43 kg/m2 (09/02/15 10:11 AM) 1Result Comment: Notified johanne [id number] Comment: Notified Mikaela [id number] Comment: Notified Mikaela RN of ALL [id number] Comment: This result was because the dosing weight was either not entered or it is>30 days old. This result is based off: Weight Measured September 02, 2015 10:11:00 CDT by Betty Capellan [email or web address] Comment: This result was because the dosing weight was either not entered or it is>30 days old. This result is based off: Weight Estimated September 02, 2015 06:30:00 CDT by Bonnie Oglesby RN Problem List Condition Effective Dates Status Health Status Informant Diabetes(Confirmed) Active Diabetic polyneuropathy(Confirmed) Active Chronic GERD(Confirmed) Active Hyperbilirubinemia(Confirmed) Active Hypertension(Confirmed) Active Morbid obesity(Confirmed) Active Obsessive behavior(Confirmed) Active Allergies, Adverse Reactions, Alerts No Known Medication Allergies Medications Augmentin 875 mg-125 mg oral tablet 875 mg, Oral, q12hr interval, # 10 tab(s), 0 Refill(s), Start Date: 08/15/15 13: 21:00 CDT Start Date: 08/15/15 Stop Date: 09/04/15 Status: Discontinuedfolic acid 1 mg oral tablet 1 tab(s), Oral, Daily, # 30 tab(s), 0 Refill(s), Start Date: 09/04/15 9:12:00 CDT, Pharmacy: [place], [place] Start Date: 09/04/15 Status: Orderedgabapentin 100 mg oral capsule 2 cap(s), Oral, TID, # 180 cap(s), 1 Refill(s), Start Date: 09/14/15 9:02:00 CDT , Pharmacy: [place], [place] Start Date: 09/14/15 Status: Orderedglimepiride 2 mg oral tablet 1 tab(s), Oral, Daily, 0 Refill(s), Start Date: 08/12/15 17:19:00 CDT Start Date: 08/12/15 Stop Date: 08/15/15 Status: Discontinuedlactulose 10 g/15 mL oral syrup 15 mL, Oral, Daily, # 450 mL, 0 Refill(s), Start Date: 09/04/15 9:12:00 CDT, Pharmacy: [place], [place] Start Date: 09/04/15 Status: OrderedLantus 100 units/mL subcutaneous solution 10 units, Subcutaneous, HS, 0 Refill(s), Start Date: 08/12/15 17:19:00 CDT Start Date: 08/12/15 Status: Orderedlisinopril 10 mg oral tablet 1 tab(s), Oral, Daily, 0 Refill(s), Start Date: 08/12/15 17:19:00 CDT Start Date: 08/12/15 Stop Date: 09/14/15 Status: Discontinuedlisinopril-hydrochlorothiazide 20 mg-12.5 mg oral tablet 1 tab(s), Oral, Daily, # 30 tab(s), 11 Refill(s), Start Date: 09/14/15 8:53:00 CDT, Pharmacy: [place], [place] Start Date: 09/14/15 Status: OrderedONETOUCH NICK ULTRA BL 0 Refill(s), Supply Start Date: 09/14/15 Status: OrderedProtonix 40 mg oral delayed release tablet 1 tab(s), Oral, Daily, # 30 tab(s), 2 Refill(s), Start Date: 09/14/15 8:51:45 CDT, Pharmacy: [place], [place] Start Date: 09/14/15 Status: OrderedProtonix 40 mg oral delayed release tablet 1 tab(s), Oral, Daily, # 30 tab(s), 0 Refill(s), Start Date: 08/15/15 13:22:00 CDT Start Date: 08/15/15 Stop Date: 09/14/15 Status: DiscontinuedTest Strips Other (See Comment) 100 EA, Subcutaneous, Daily, 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, # 1 boxes, 3 Refill (s), Pharmacy: [place], [place], Supply Special Instructions: 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 Start Date: 09/14/15 Stop Date: 09/08/16 Status: OrderedTums 500 mg oral tablet, chewable 1 tab(s), Chewed, TID, PRN indigestion, 0 Refill(s), Start Date: 08/15/15 13:21: 00 CDT Start Date: 08/15/15 Stop Date: 09/02/15 Status: CompletedVictoza 18 mg/3 mL subcutaneous solution 1.2 mg, Subcutaneous, Daily, # 6 mL, 0 Refill(s), Start Date: 09/14/15 9:02:00 CDT, Pharmacy: [place], [place] Start Date: 09/14/15 Status: Ordered Results Patient Viewable Results Most recent to oldest 1 2 3 [Reference Range]: Patient Temp 37.0 DegC *NA* (09/02/15 7:34 AM) pH Huan [7.32-7.42] 7.48 *HI* (09/02/15 7:34 AM) pCO2 Huan [42-55 mmHg] 44 mmHg (09/02/15 7:34 AM) pO2 Huan [35-40 mmHg] 48 mmHg *HI* (09/02/15 7:34 AM) Totl CO2 Huan [23-30 mmol/L] 34 mmol/L *HI* (09/02/15 7:34 AM) HCO3 Huan [22-29 mmol/L] 31 mmol/L *HI* (09/02/15 7:34 AM) Base Excess Huan 8.2 mmol/L *NA* (09/02/15 7:34 AM) O2 % Sat Huan (m) [70-75 %] 88 % *HI* (09/02/15 7:34 AM) WBC [4.8-10.8 thou/mm3] 8.2 thou/mm3 (09/02/15 7:34 AM) RBC [4.60-6.00 Mil/mm3] 3.91 Mil/mm3 *LOW* (09/02/15 7:34 AM) Hgb [14.0-18.0 g/dL] 14.1 g/dL (09/02/15 7:34 AM) Hct [42.0-52.0 %] 40.4 % *LOW* (09/02/15 7:34 AM) MCV [80.0-94.0 fL] 103.3 fL *HI* (09/02/15 7:34 AM) MCH [25.0-38.0 pg/cell] 36.1 pg/cell (09/02/15 7:34 AM) MCHC [31.0-37.0 g/dL] 34.9 g/dL (09/02/15 7:34 AM) RDW [1.0-48.0 fL] 49.1 fL *HI* (09/02/15 7:34 AM) Platelet [130-400 thou/mm3] 133 thou/mm3 (09/02/15 7:34 AM) Neutrophils % Auto [50.0-75.0 74.0 % %] (09/02/15 7:34 AM) Immature Granulocyte Auto 0.5 % [0.1-2.0 %] (09/02/15 7:34 AM) Lymphocytes % Auto [15.0-41.0 15.1 % %] (09/02/15 7:34 AM) Monocytes % Auto [2.0-10.0 %] 9.8 % (09/02/15 7:34 AM) Eosinophils % Auto [0.0-6.0 %] 0.6 % (09/02/15 7:34 AM) Basophil % Auto [0.0-1.0 %] 0.0 % (09/02/15 7:34 AM) Neutrophils Absolute [1.5-5.9 6.0 thou/mm3 thou/mm3] *HI* (09/02/15 7:34 AM) Immature Gran Absolute 0.04 thou/mm3 [0.01-0.03 thou/mm3] *HI* (09/02/15 7:34 AM) Lymphocytes Absolute [1.5-4.0 1.2 thou/mm3 thou/mm3] *LOW* (09/02/15 7:34 AM) Monocytes Absolute [0.0-0.9 0.8 thou/mm3 thou/mm3] (09/02/15 7:34 AM) Eosinophil Absolute [0.0-0.7 0.0 thou/mm3 thou/mm3] (09/02/15 7:34 AM) Basophil Absolute [0.0-0.2 0.0 thou/mm3 thou/mm3] (09/02/15 7:34 AM) Sodium Lvl [135-144 mEq/L] 138 mEq/L 137 mEq/L 139 mEq/L (09/04/15 5:38 AM) (09/03/15 5:42 AM) (09/02/15 7:34 AM) Potassium Lvl [3.3-4.8 mEq/L] 3.9 mEq/L 3.6 mEq/L 4.0 mEq/L (09/04/15 5:38 AM) (09/03/15 5:42 AM) (09/02/15 7:34 AM) Chloride Lvl [98-107 mEq/L] 104 mEq/L 100 mEq/L 95 mEq/L (09/04/15 5:38 AM) (09/03/15 5:42 AM) *LOW* (09/02/15 7:34 AM) Bicarbonate Lvl [22-30 mmol/L] 24 mmol/L 29 mmol/L 29 mmol/L (09/04/15 5:38 AM) (09/03/15 5:42 AM) (09/02/15 7:34 AM) Anion Gap [10.0-20.0] 13.9 11.6 19.0 (09/04/15 5:38 AM) (09/03/15 5:42 AM) (09/02/15 7:34 AM) Glucose Lvl [70-108 mg/dL] 90 mg/dL 88 mg/dL 135 mg/dL (09/04/15 5:38 AM) (09/03/15 5:42 AM) *HI* (09/02/15 7:34 AM) BUN [7-21 mg/dL] 6 mg/dL 8 mg/dL 4 mg/dL *LOW* (09/03/15 5:42 AM) *LOW* (09/04/15 5:38 AM) (09/02/15 7:34 AM) Creatinine Lvl [0.50-1.20 0.37 mg/dL 0.46 mg/dL 0.52 mg/dL mg/dL] *LOW* *LOW* (09/02/15 7:34 AM) (09/04/15 5:38 AM) (09/03/15 5:42 AM) BUN/Creat Ratio 16.2 17.4 7.7 *NA* *NA* *NA* (09/04/15 5:38 AM) (09/03/15 5:42 AM) (09/02/15 7:34 AM) eGFR AA [>=60] >60 >60 >60 (09/04/15 5:38 AM) (09/03/15 5:42 AM) (09/02/15 7:34 AM) eGFR EDGARDO [>=60] >60 >60 >60 (09/04/15 5:38 AM) (09/03/15 5:42 AM) (09/02/15 7:34 AM) Calcium Lvl [8.6-10.2 mg/dL] 8.1 mg/dL 7.7 mg/dL 8.7 mg/dL *LOW* *LOW* (09/02/15 7:34 AM) (09/04/15 5:38 AM) (09/03/15 5:42 AM) Total Protein [6.4-8.3 g/dL] 5.4 g/dL 5.2 g/dL 6.3 g/dL *LOW* *LOW* *LOW* (09/04/15 5:38 AM) (09/03/15 5:42 AM) (09/02/15 7:34 AM) Albumin Lvl [3.5-5.2 g/dL] 3.0 g/dL 2.9 g/dL 3.6 g/dL *LOW* *LOW* (09/02/15 7:34 AM) (09/04/15 5:38 AM) (09/03/15 5:42 AM) Globulin 2.4 2.3 2.7 *NA* *NA* *NA* (09/04/15 5:38 AM) (09/03/15 5:42 AM) (09/02/15 7:34 AM) A/G Ratio [0.9-1.8] 1.2 1.3 1.3 (09/04/15 5:38 AM) (09/03/15 5:42 AM) (09/02/15 7:34 AM) Bilirubin Total [0.1-1.0 mg/dL] 3.1 mg/dL 3.8 mg/dL 4.0 mg/dL *HI* *HI* *HI* (09/04/15 5:38 AM) (09/03/15 5:42 AM) (09/02/15 7:34 AM) Bilirubin Direct [0.0-0.3 2.1 mg/dL 2.2 mg/dL mg/dL] *HI* *HI* (09/04/15 5:38 AM) (09/03/15 5:42 AM) Alkaline Phosphatase [39-129 258 unit/L 264 unit/L 342 unit/L unit/L] *HI* *HI* *HI* (09/04/15 5:38 AM) (09/03/15 5:42 AM) (09/02/15 7:34 AM) AST [0-39 unit/L] 158 unit/L 164 unit/L 191 unit/L *HI* *HI* *HI* (09/04/15 5:38 AM) (09/03/15 5:42 AM) (09/02/15 7:34 AM) ALT [0-40 unit/L] 65 unit/L 62 unit/L 82 unit/L *HI* *HI* *HI* (09/04/15 5:38 AM) (09/03/15 5:42 AM) (09/02/15 7:34 AM) Ammonia [16-60 mcmol/L] 85 mcmol/L 71 mcmol/L *HI* *HI* (09/03/15 5:42 AM) (09/02/15 7:34 AM) Lipase Lvl [13-60 unit/L] 30 unit/L 37 unit/L (09/02/15 11:17 AM) (09/02/15 7:34 AM) Lactic Acid Lvl [0.5-2.2 0.9 mmol/L 2.2 mmol/L 3.5 mmol/L mmol/L] (09/03/15 5:42 AM) (09/02/15 11:17 AM) *HI* (09/02/15 7:34 AM) Procalcitonin [0.00-0.09 ng/mL] 0.19 ng/mL *HI* (09/02/15 7:34 AM) B-Hydroxybutyrate [0.00-0.40 0.09 mmol/L mmol/L] (09/02/15 7:34 AM) Folate Lvl, Serum [>=5.5 ng/mL] 3.5 ng/mL *LOW* (09/03/15 5:42 AM) Cortisol Lvl, [place] 1.9 mcg/dL *NA* (09/03/15 5:42 AM) Cortisol ACTH Stim, Baseline 8.2 mcg/dL [4.3-22.4 mcg/dL] (09/04/15 7:55 AM) Cortisol ACTH Stim, 30 min 26.1 mcg/dL *NA* (09/04/15 8:34 AM) Cortisol ACTH Stim, 60 min 26.9 mcg/dL *NA* (09/04/15 9:01 AM) Estimated Creatinine Clearance 322.93 mL/min 259.74 mL/min 229.77 mL/min (09/04/15 6:42 AM) (09/03/15 6:42 AM) (09/02/15 10:28 AM) UA Color [Yellow] Dark Yellow1 *ABN* (09/02/15 12:17 PM) Urine Clarity [Clear] Clear (09/02/15 12:17 PM) Specific [place] [1.001-1.020] >1.050 *HI* (09/02/15 12:17 PM) Urine pH [5.0-7.0] 8.0 *HI* (09/02/15 12:17 PM) Ketones [Negative] Negative (09/02/15 12:17 PM) Bilirubin [Negative] Negative (09/02/15 12:17 PM) Urine Protein [Negative] Trace *ABN* (09/02/15 12:17 PM) Glucose [Negative] Negative (09/02/15 12:17 PM) Urine HGB [Negative] Negative (09/02/15 12:17 PM) Urobilinogen [< 2.0 mg/dL] <2.0 *NA* (09/02/15 12:17 PM) Nitrite [Negative] Negative (09/02/15 12:17 PM) Leuk Esterase [Negative] Negative (09/02/15 12:17 PM) Urine WBC [0-5] 0-5 (09/02/15 12:17 PM) Urine RBC [0-2] 0-2 (09/02/15 12:17 PM) Squamous Epi [0-5] 0-5 (09/02/15 12:17 PM) Whole Blood Glucose [70-108 84 mg/dL2 111 mg/dL3 113 mg/dL4 mg/dL] (09/04/15 7:28 AM) *HI* *HI* (09/03/15 9:02 PM) (09/03/15 4:24 PM) 1Result Comment: Highly pigmented urine may cause false chemical test results.2Result Comment: Rewinder Operator Helper: [id number] Yasmin Aikns [id number] Comment: Rewinder Operator Helper: [id number] Elly Dudley [id number] Comment: Rewinder Operator Helper: [id number] Elly RUSHINGA Immunizations No data available for this section Procedures Procedure Date Related Diagnosis Body Site Myringotomy 1990 Arm1 Rhinoplasty [place] tooth2 1left arm needed to be [id number] Social History No data available for this section Assessment and Plan No data available for this section
[2016-09-02] MEDS ORDERED: LORazepam 2 MG/ML DISP.SYRIN IV ONE (18:32)
[2016-09-02] MEDS ORDERED: hydrOXYzine PAMOATE 25 MG CAPSULE PO ONE ×2 (18:33→20:23)
[2016-09-02 18:37] LABS: Hematocrit 41.6 % (42.0-52.0); Mean Cell Volume 85.4 fl (78-100); Mean Corpuscular Hemoglobin 30.8 pg (27-31); Mean Corpuscular Hgb Conc 36.1 g/dl (32-36); Mean Platelet Volume 11.6 fl (6.0-9.5); Neutrophil # 3.6 K/mm3 (1.3-6.0); Neutrophil % 44.1 % (42-75.0); Platelet Count 245 K/mm3 (150-450); Red Blood Count 4.87 M/mm3 (4.7-6.0); Red Cell Distribution Width 12.2 % (11.5-14.0); White Blood Count 8.1 K/mm3 (4.0-10.5)
[2016-09-02] MEDS ORDERED: LORazepam 2 MG/ML DISP.SYRIN ONE (18:47)
[2016-09-02] MEDS ORDERED: hydrOXYzine PAMOATE 25 MG CAPSULE ONE ×2 (18:47→20:26)
--- NOTE | 2016-09-02 18:51 | ERNOTE ---
Psychological HPI - Date Date of Service: 09/02/16 - General Chief Complaint: Anxiety Source: Reports: patient Exam Limitations: Reports: no limitations - Immun/Allergies/Home Medications Allergies/Adverse Reactions: Allergies No Known Allergies Allergy (Verified 09/02/16 18:30) Home Medications: HOME MEDICATIONS Insulin Glargine,Hum.rec.anlog [Lantus] 10 units SC HS #1 vial 07/15/15 [Last Taken Unknown] Lisinopril [Zestril] 10 mg PO DAILY #30 tablet 07/15/15 [Last Taken Unknown] Clonazepam 2 mg PO BID 09/02/16 [Last Taken Unknown] Gabapentin 800 mg PO DAILY 09/02/16 [Last Taken Unknown] LORazepam [Ativan] 1 mg PO TID #30 tab 09/02/16 [Last Taken Unknown] Omeprazole [Prilosec] 20 mg PO DAILY #30 cap 09/02/16 [Last Taken Unknown] QUEtiapine FUMARATE [Seroquel] 25 mg PO 09/02/16 [Last Taken Unknown] hydrOXYzine PAMOATE [Vistaril] 25 mg PO Q4H #60 cap 09/02/16 [Last Taken Unknown ] lamoTRIgine [Lamictal] 25 mg PO 09/02/16 [Last Taken Unknown] traMADol HCL [Ultram] 50 mg PO QID PRN 09/02/16 [Last Taken Unknown] - History of Present Illness Narrative: Pt. comes in with c/o increased anxiety and panic attacks for five days. Pt. states that his psych meds were recently changed to seroquel for his mood plus clonipin, amytriptalline, and lamictal for fibromyalgia. Pt. denies any recent illness, SOB, NVD, fever, but states that he does have chest pain and air hunger and palpitations. Time Seen by Provider: 09/02/16 18:14 Review of Systems - Review of Systems Constitutional: Present: no symptoms reported. Absent: recent illness, fever, chills, fatigue, malaise EYE: Present: no symptoms reported ENT: Present: no symptoms reported Respiratory: Present: other - air hunger. Absent: shortness of breath, cough, wheezing Cardiology: Present: chest pain, palpitations. Absent: edema Gastrointestinal/Abdominal: Present: no symptoms reported. Absent: nausea, vomiting, diarrhea, abdominal pain Genitourinary: Present: no symptoms reported Musculoskeletal: Present: no symptoms reported. Absent: back pain, joint pain Neurological: Present: anxiety, depressed. Absent: headache, dizziness/light- headedness, weakness, numbness, tingling All Other Systems: All systems neg except as marked - Patient's Past Medical History Patient History - Medical: Anxiety, Chronic Pain, Diabetes Type 2, Depression, Fibromyalgia, Obesity Patient History - Cardiac/Respiratory: No pertinent hx Patient History - Cancer: No Hx of Cancer Patient History - Surgical Procedures: Ear Tubes Patient History - Other: None - Family History Mother Family History - Medical: No pertinent hx Father Family History - Medical: Diabetes Type 2 - Social History Living Situations: home Abuse History: No History of abuse Psych History: Hx of Anxiety Smoking Status: Former smoker Alcohol Use: none Drug Use: none - Immunizations Immunizations Up to Date: Yes Hx Pneumococcal Vaccination: No History of Influenza Vaccine: No Physical Exam - Physical Exam General Appearance: Present: wd/wn, alert, no apparent distress Eye Exam: Normal inspection: bilateral, PERRL: bilateral, EOMI: bilateral Ears, Nose, Throat: Present: normal ENT inspection, normal pharynx Neck: Present: normal inspection, nontender. Absent: lymphadenopathy (R), lymphadenopathy (L) Respiratory: Present: no respiratory distress, normal breath sounds, no accessory muscle use, chest nontender, lungs clear Cardiovascular/Chest: Present: regular rate, rhythm, no murmur, normal peripheral pulses Gastrointestinal/Abdominal: Present: normal bowel sounds, nontender, nondistended, soft, no organomegaly Back Exam: Present: normal inspection Extremity Exam: Present: normal inspection Neurological Exam: Present: alert, oriented, normal mood/affect, no motor/ sensory deficits Skin Exam: Present: normal color, warm/dry ED Progress - Date and Time Seen: Date and Time: 09/02/16 19:[address] Nino and he recommends stopping pt. seroquel and having him continue his lamictal. - Results and Orders Patient's Lab Results:: I have reviewed the patient's lab results. - Vital Signs Patient's Vital Signs:: I have reviewed the patient's vital signs. Vital Signs: Vital Signs 09/02/16 18:17 Temperature 36.8 C Pulse Rate 114 H Respiratory 16 Rate Blood Pressure 126/75 O2 Sat by Pulse 99 Oximetry - EKG EKG: other - Sinus tach EKG read: Reviewed by me EKG Comments: interpreted by Dr Kelley - Progress/Reassessment Chief Complaint: Anxiety Progress:: Improved Departure Clinical Impression: Anxiety and depression - Departure Disposition: Home self-care Condition: Good Instructions: Panic Attacks, [id number] Additional Instructions: Please Stop seroquel and clonazepam and start lorazepam and vistaril. Please start prilosec and start melatonin. Discuss further medication changes with Dr Benjamin Duffy on the . Referrals: Daren Vega MD [Primary Care Provider] - Prescriptions: LORazepam [Ativan] 1 mg PO TID #30 tab Omeprazole [Prilosec] 20 mg PO DAILY #30 cap hydrOXYzine PAMOATE [Vistaril] 25 mg PO Q4H #60 cap Psychological Exam - Physical Exam Thoughts/Hallucinations: Present: flight of ideas, phobic Behavior/Eye Contact/Speech: Present: cooperative, avoids eye contact, increased rate of speech
[2016-09-02 18:53] LABS: INR 0.96 INR (0.90-1.10); Partial Thrombolplastin Time 27.9 Seconds (24-32)
[2016-09-02 18:58] LABS: ALT 45 U/L (19-67); AST 34 U/L (0-48); Alkaline Phosphatase * 196 U/L (50-170); Anion Gap 14.2 mmol/L (6.8-13.8); BUN/Creatinine Ratio 9.3 (9.0-21.6); Bilirubin, Total 0.8 mg/dL (0.0-1.1); Blood Urea Nitrogen 11 mg/dL (6-23); Ca. Corrected For Albumin 9.7 mg/dL (8.4-10.2); Carbon Dioxide 28.4 mmol/L (24-32.6); Chloride 102 mmol/L (97-106); Glucose * 200 mg/dL (70-110); Potassium 4.6 mmol/L (3.4-4.6); Sodium 140 mmol/L (132-142); TSH * 0.966 uIU/mL (0.358-3.74); Total Protein 7.3 gm/dL (6.2-8.2)
[2016-09-02 18:59] LABS: Troponin I Less than 0.017 ng/ml (0.00-0.10)
[2016-09-02] MEDS ORDERED: LORazepam 1 MG TABLET PO ONE (20:23)
[2016-09-02] MEDS ORDERED: LORazepam 1 MG TABLET ONE (20:26)
[2016-09-02 22:25] VITALS: BP 128/85
== END 2016-09-02 20:34 | disposition home or self-care (01) ==
LOC: ER 17:58
DX: F41.9 Anxiety disorder, unspecified (principal); F32.9 Major depressive disorder, single episode, unspecified; E11.9 Type 2 diabetes mellitus without complications; Z79.4 Long term (current) use of insulin; M79.7 Fibromyalgia; Z87.891 Personal history of nicotine dependence

== ENCOUNTER 2019-11-22 12:01 | Observation (INO) ==
[2019-11-22 12:42] LABS: Hematocrit 47.8 % (42.0-52.0); Hemoglobin 15.3 gm/dL (13.5-18.0); Mean Corpuscular Hemoglobin 26.6 pg (27-31); Mean Platelet Volume 9.6 fl (8-11.3); Neutrophil # 8.5 K/mm3 (1.3-6.0); Neutrophil % 61.1 % (42-75.0); Platelet Count 432 K/mm3 (150-450); Red Blood Count 5.76 M/mm3 (4.7-6.0); Red Cell Distribution Width 14.4 % (11.5-14.0); White Blood Count 13.9 K/mm3 (4.0-10.5)
[2019-11-22 13:02] LABS: ALT 37 U/L (19-67); AST 25 U/L (0-48); Albumin * 3.7 gm/dl (3.4-5.0); Alkaline Phosphatase * 145 U/L (50-170); Anion Gap 19.9 mmol/L (6.8-13.8); BUN/Creatinine Ratio 3.8 (9.0-21.6); Bilirubin, Total 0.3 mg/dL (0.0-1.1); Blood Urea Nitrogen 6 mg/dL (6-23); Calcium * 9.1 mg/dL (7.9-10.9); Carbon Dioxide 22.8 mmol/L (24-32.6); Chloride 96 mmol/L (97-106); Glucose * 428 mg/dL (70-110); Potassium 3.7 mmol/L (3.4-4.6); Sodium 135 mmol/L (132-142); Total Protein 7.7 gm/dL (6.2-8.2)
[2019-11-22 13:03] LABS: Salicylate Less than 2.8 mg/dL (2.8-20.0); TSH * 0.502 uIU/mL (0.358-3.74)
[2019-11-22] MEDS ORDERED: NORMAL SALINE 1,000 ML IV ONE (13:47)
[2019-11-22 14:39] LABS: Urine Bilirubin Negative (NEGATIVE); Urine Blood Negative /ul (NEGATIVE); Urine Ketone Negative (NEGATIVE); Urine Nitrite Negative (NEGATIVE); Urine Protein Negative (NEGATIVE); Urine Urobilinogen Normal (NORMAL)
[2019-11-22 14:51] LABS: Cocaine Ur Negative (NEGATIVE); Urine Barbiturate Negative (NEGATIVE); Urine Benzodiazepines Negative (NEGATIVE); Urine Opiates Negative (NEGATIVE); Urine PCP Negative (NEGATIVE); Urine THC Negative (NEGATIVE)
[2019-11-22 15:07] LABS: Urine Appearance Clear (CLEAR); Urine Bacteria TRACE; Urine Color Yellow; Urine RBC TRACE /hpf (0-5); Urine WBC TRACE /hpf (0-5)
[2019-11-22] MEDS ORDERED: LORazepam 2 MG/ML DISP.SYRIN IV ONE (15:32)
--- NOTE | 2019-11-22 16:07 | ERNOTE ---
Psychological HPI - Date Date of Service: 11/22/19 - General Chief Complaint: Psychiatric Problem Source: Reports: patient, family Exam Limitations: Reports: no limitations - Immun/Allergies/Home Medications Allergies/Adverse Reactions: Allergies quetiapine [From Seroquel] Adverse Reaction (Unknown, Verified 11/15/19 09:01) delirium Home Medications: HOME MEDICATIONS blood pressure test kit-large See Dose Instructions .ROUTE .MEDSUPPLY #1 ea 05/24/18 [Last Taken Unknown] insulin syringe-needle U-100 0.3 mL 31 gauge x 516" See Dose Instructions .ROUTE .MEDSUPPLY #100 ea 11/12/18 [Last Taken Unknown] insulin glargine 100 unit/mL (3 mL) subcutaneous pen 20 unit SUBCUT DAILY #15 ml 04/12/19 [Last Taken Unknown] pen needle, diabetic 31 gauge x 516" See Rx Instructions .ROUTE .MEDSUPPLY #100 ea 04/12/19 [Last Taken Unknown] blood sugar diagnostic See Rx Instructions .ROUTE .MEDSUPPLY #100 ea 05/06/19 [Last Taken Unknown] lancets 30 gauge See Rx Instructions .ROUTE .MEDSUPPLY #200 ea 05/06/19 [Last Taken Unknown] lamotrigine 100 mg tablet 50 mg PO .Qevening #15 tab 10/11/19 [Last Taken Unknown] lamotrigine 200 mg tablet 200 mg PO DAILY #30 tab 10/11/19 [Last Taken Unknown] lithium carbonate 300 mg tablet,extended release 600 mg PO DAILY #60 tab 10/11/19 [Last Taken Unknown] propranolol 10 mg tablet 10 mg PO TID #90 tab 10/11/19 [Last Taken Unknown] amitriptyline 50 mg tablet See Rx Instructions .ROUTE .COMPLEX #30 unknown measurement unit code: tablet 10/30/19 [Last Taken Unknown] gabapentin 400 mg capsule See Rx Instructions .ROUTE .COMPLEX #240 unknown measurement unit code: capsule 10/30/19 [Last Taken Unknown] lisinopril 10 mg tablet See Rx Instructions .ROUTE .COMPLEX #30 unknown measurement unit code: tablet 10/30/19 [Last Taken Unknown] metformin 500 mg tablet See Rx Instructions .ROUTE .COMPLEX #60 unknown measurement unit code: tablet 10/30/19 [Last Taken Unknown] aspirin 325 mg tablet 325 mg PO DAILY #30 tab 10/31/19 [Last Taken Unknown] tramadol 50 mg tablet 100 mg PO Q6H #240 tab 11/11/19 [Last Taken Unknown] hydroxyzine HCl 50 mg tablet 50 mg PO .QD PRN #30 tab 11/15/19 [Last Taken Unknown] lurasidone 60 mg tablet 60 mg PO DAILY #30 tab 11/17/19 [Last Taken Unknown] Insulin Glargine,Hum.rec.anlog [Sofíaaglrajesh Mayfieldpen U-100] 20 unit SQ DAILY 11/22/19 [Last Taken Unknown] - History of Present Illness Narrative: Patient presents to the ED with mother. He presents after having increased mental problems since his Latuda was increased. Suicidal thoughts. No CP or SOB. Drinks alcohol daily. No fever. No overdose. Has not seen anyone for this. Has been drinking alcohol today. Nothing seems to make this better or worse. Time Seen by Provider: 11/22/19 12:26 Arrived by: Reports: private car Onset/duration: Reports: gradual onset Intent: Reports: other - suicidal thoughts Situational Problems: Reports: other - they think the Latuda is causing this Associated Symptoms: Denies: specific plan Prior Treament: Reports: similar symptoms before Review of Systems - Review of Systems Constitutional: Absent: fever ENT: Absent: sore throat Respiratory: Absent: shortness of breath Cardiology: Absent: chest pain Gastrointestinal/Abdominal: Present: other - wears an abdominal binder. Multiple abdominal surgeries. 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 09/18/17 Benign essential HTN Onset Date: ~2012 Bipolar illness Onset Date: ~08/16/16 Depression Onset Date: ~04/28/17 Diabetes mellitus Onset Date: ~2012 Diabetic skin ulcer Onset Date: ~05/09/17 Erectile dysfunction Onset Date: ~08/16/16 Fibromyalgia Onset Date: ~06/10/16 Ileostomy present Onset Date: ~09/2017 Insomnia Onset Date: ~06/16/16 sleep study 05/01/11: AHI 3/hr, lowest O2 sat 82%, FMCH Ischemic colon Metabolic syndrome Onset Date: ~06/10/16 Obesity Onset Date: ~06/10/16 Panic disorder Onset Date: ~09/07/16 Perleche Onset Date: ~07/11/16 Stiffness due to immobility Onset Date: ~08/16/16 Vitamin D deficiency Onset Date: ~05/09/17 Alcohol abuse, 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 2015 Bipolar disorder, current episode manic without psychotic features (Resolved) With anxious distress Benzodiazepine abuse (Inactive) Surgical History: Surgical History (Last Reviewed 11/22/19 @ 16:18 by Stevenson Lyman MD) H/O rhinoplasty Onset Date: ~2005 H/O wisdom tooth extraction Onset Date: ~2006 History of exploratory laparotomy Onset Date: ~09/2017 History of right hemicolectomy Onset Date: ~09/2017 Family History: Family History (Last Reviewed 11/22/19 @ 16:18 by Stevenson Lyman MD) Brother Alive and well Brother Alive and well Brother Alive and well Father Hypertension Diabetes Mother Alive and well Child Alive and well Social History: (Last Reviewed 11/22/19 @ 16:18 by Stevenson Lyman MD) Social History: adopted: No Marital status: lives independently: No household members: spouse, children number of children: 1 current occupational status: employed 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 Absent: agitated Thoughts/Hallucinations: Present: no apparent hallucination Behavior/Eye Contact/Speech: Present: cooperative. Absent: compulsive, uncooperative Eye Exam: Normal inspection: bilateral, PERRL: bilateral Ears, Nose, Throat: Present: normal ENT inspection Neck: Present: normal inspection Respiratory: Present: no respiratory distress, normal breath sounds, no accessory muscle use, lungs clear Cardiovascular/Chest: Present: regular rate, rhythm Gastrointestinal/Abdominal: Present: normal bowel sounds, nontender, soft Back Exam: Present: normal range of motion Extremity Exam: Present: no edema Skin Exam: Present: normal color, warm/dry Progress - Results and Orders Patient's Lab Results:: I have reviewed the patient's lab results. - Vital Signs Patient's Vital Signs:: I have reviewed the patient's vital signs. Vital Signs: Vital Signs 11/22/19 12:13 Temperature 36.5 C Pulse Rate 91 Respiratory Rate 16 Blood Pressure 138/93 H O2 Sat by Pulse Oximetry 100 - Progress/Reassessment Chief Complaint: Psychiatric Problem Progress Note-Subjective: 11/22/19 16:19 IV fluids given. Patient intoxicated. Here he slowly developed significant withdrawal symptoms, CIWA 12 so IV ativan given. He is not medically stable for [facility] eval or psych placement. Needs medical treatment and clearance. D/W Dr Herron who will admit. Patient is agreeable. Time Seen by Provider: 11/22/19 12:26 Departure Clinical Impression: Elevated ETOH level, Hyperglycemia, Withdrawal symptoms, alcohol, Suicidal thoughts - Departure Disposition: Still a patient Condition: Fair
--- NOTE | 2019-11-22 16:51 | HP ---
Chief Complaint - Chief Complaint Date of Service: 11/22/19 Time of Service: 16:51 Chief Complaint: suicidal ideation History of Present Illness: Patient with PMHx of bipolar disorder, diabetes mellitus, previous pneumotosis coli requiring partial colon resection complicated by arterial occlusion and needing a wound vac, fibromyalgia, previous alcohol abuse, previous benzodiazepine dependence. He had quit drinking until 6-9 months ago, and has been drinking a fifth of rum daily. He's been having more anxiety, and his psych provider has been trying to adjust his medications. Latuda dose was recently changed. HIs anxiety has gotten out of control, and he began having suicidal ideation the past couple of days. Has not eaten or slept in 3 days. He's been having RUQ pain. Denies fever, cough, dysuria, skin ulcer. In the ED, ETOH was 265, negative UDS. WBC slightly elevated at 13.9. He has an acute renal injury, with creatinine of 1.56 and GFR of 56. AST, ALT, alk phos normal. HIs CIWA score in the ED was 12. He is admitted for resolution of acute alcohol intoxication, and psych eval through [facility] to determine inpatient placement. 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 09/18/17 Benign essential HTN Onset Date: ~2012 Bipolar illness Onset Date: ~08/16/16 Depression Onset Date: ~04/28/17 Diabetes mellitus Onset Date: ~2012 Diabetic skin ulcer Onset Date: ~05/09/17 Erectile dysfunction Onset Date: ~08/16/16 Fibromyalgia Onset Date: ~06/10/16 Ileostomy present Onset Date: ~09/2017 Insomnia Onset Date: ~06/16/16 sleep study 05/01/11: AHI 3/hr, lowest O2 sat 82%, FMCH Ischemic colon Metabolic syndrome Onset Date: ~06/10/16 Obesity Onset Date: ~06/10/16 Panic disorder Onset Date: ~09/07/16 Perleche Onset Date: ~07/11/16 Stiffness due to immobility Onset Date: ~08/16/16 Vitamin D deficiency Onset Date: ~05/09/17 Alcohol abuse, 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 2015 Bipolar disorder, current episode manic without psychotic features (Resolved) With anxious distress Benzodiazepine abuse (Inactive) Surgical History: Surgical History (Last Updated 11/22/19 @ 16:54 by Mayito Lopez RN) H/O skin graft H/O rhinoplasty Onset Date: ~2005 H/O wisdom tooth extraction Onset Date: ~2006 History of exploratory laparotomy Onset Date: ~09/2017 History of right hemicolectomy Onset Date: ~09/2017 Family History: Family History (Last Reviewed 11/22/19 @ 16:54 by Mayito Lopez RN) Brother Alive and well Brother Alive and well Brother Alive and well Father Hypertension Diabetes Mother Alive and well Child Alive and well Social History: (Last Reviewed 11/22/19 @ 16:54 by Mayito Lopez RN) Social History: adopted: No Marital status: lives independently: No household members: spouse, children number of children: 1 current occupational status: employed 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 Absent: Fever Respiratory: Absent: Shortness of Breath Cardiac: Absent: Chest Pain Abdominal: Present: Abdominal Pain - RUQ. Absent: Vomiting Genitourinary: Present: No Symptoms Reported Musculoskeletal: Present: No Symptoms Reported Neurological: Present: Anxiety, Emotional Problems Skin: Present: No Symptoms Reported Immunizations: IMMUNIZATION HX Immunizations Up to Date Yes History of Influenza Vaccine No Hx Pneumococcal Vaccination No Allergies/Adverse Reactions: Allergies Allergy/AdvReac Type Severity Reaction Status Date / Time quetiapine [From Seroquel] AdvReac Unknown delirium Verified 11/22/19 16:55 Home Medications: HOME MEDICATIONS blood pressure test kit-large See Dose Instructions .ROUTE .MEDSUPPLY #1 ea 05/24/18 [Last Taken Unknown] insulin syringe-needle U-100 0.3 mL 31 gauge x 5/16" See Dose Instructions .ROUTE .MEDSUPPLY #100 ea 11/12/18 [Last Taken Unknown] insulin glargine 100 unit/mL (3 mL) subcutaneous pen 20 unit SUBCUT DAILY #15 ml 04/12/19 [Last Taken Unknown] pen needle, diabetic 31 gauge x 16" See Rx Instructions .ROUTE .MEDSUPPLY #100 ea 04/12/19 [Last Taken Unknown] blood sugar diagnostic See Rx Instructions .ROUTE .MEDSUPPLY #100 ea 05/06/19 [Last Taken Unknown] lancets 30 gauge See Rx Instructions .ROUTE .MEDSUPPLY #200 ea 05/06/19 [Last Taken Unknown] lamotrigine 100 mg tablet 50 mg PO .Qevening #15 tab 10/11/19 [Last Taken Unknown] lamotrigine 200 mg tablet 200 mg PO DAILY #30 tab 10/11/19 [Last Taken Unknown] lithium carbonate 300 mg tablet,extended release 600 mg PO DAILY #60 tab 10/11/19 [Last Taken Unknown] propranolol 10 mg tablet 10 mg PO TID #90 tab 10/11/19 [Last Taken Unknown] amitriptyline 50 mg tablet See Rx Instructions .ROUTE .COMPLEX #30 unknown measurement unit code: tablet 10/30/19 [Last Taken Unknown] gabapentin 400 mg capsule See Rx Instructions .ROUTE .COMPLEX #240 unknown measurement unit code: capsule 10/30/19 [Last Taken Unknown] lisinopril 10 mg tablet See Rx Instructions .ROUTE .COMPLEX #30 unknown measurement unit code: tablet 10/30/19 [Last Taken Unknown] metformin 500 mg tablet See Rx Instructions .ROUTE .COMPLEX #60 unknown measurement unit code: tablet 10/30/19 [Last Taken Unknown] aspirin 325 mg tablet 325 mg PO DAILY #30 tab 10/31/19 [Last Taken Unknown] tramadol 50 mg tablet 100 mg PO Q6H #240 tab 11/11/19 [Last Taken Unknown] hydroxyzine HCl 50 mg tablet 50 mg PO .QD PRN #30 tab 11/15/19 [Last Taken Unknown] lurasidone 60 mg tablet 60 mg PO DAILY #30 tab 11/17/19 [Last Taken Unknown] Insulin Glargine,Hum.rec.anlog [Sofíaaglrajesh Cabrera U-100] 20 unit SQ DAILY 11/22/19 [Last Taken Unknown] Exam - Exam Vital Signs: Vital Signs - Last Taken Temp 36.6 C 11/22/19 16:44 Pulse 85 11/22/19 16:44 Resp 16 08/21/20 16:44 BP 125/78 11/22/19 16:44 Pulse Ox 98 11/22/19 16:44 Constitutional: Present: Alert, Cooperative, No distress - appears mildly uncomfortable, Obese Respiratory: Present: lungs clear, normal breath sounds Cardiovascular/Chest: Present: regular rate, rhythm Abdomen: Present: tender - RUQ, hypoactive Extremity: Absent: lower extremity edema Skin Exam: Present: other - large transverse, well healed scar of abdomen. Distorted abdominal appearance, his baseline Neurologic: Present: alert Eye contact: Present: cooperative, good eye contact Diagnostic Studies: Abnormal Lab Results 11/22/19 11/22/19 11/22/19 Range/Units 12:37 12:37 14:07 WBC 13.9 H (4.0-10.5) K/mm3 MCH 26.6 L (27-31) pg RDW 14.4 H (11.5-14.0) % Immature Gran # (Auto) 0.05 H (0.000-0.0310) K/mm3 Neutrophils # 8.5 H (1.3-6.0) K/mm3 Lymphocytes # 4.64 H (1.5-3.5) k/mm3 Chloride 96 L (97-106) mmol/L Carbon Dioxide 22.8 L (24-32.6) mmol/L Anion Gap 19.9 H (6.8-13.8) mmol/L Creatinine 1.56 H (0.4-1.4) mg/dL Est GFR (Non-Af Amer) 56 L D (60-130) mL/min BUN/Creatinine Ratio 3.8 L (9.0-21.6) Random Glucose 428 H (70-110) mg/dL Urine Glucose (UA) >=1000 H (NEGATIVE) mg/dL Salicylates Less than 2.8 L (2.8-20.0) mg/dL Acetaminophen Less than 0.2 L (10.0-30.0) mcg/mL Ethyl Alcohol 265.0 H (0.0-10.0) mg/dL Laboratory Results WBC 13.9 K/mm3 (4.0-10.5) H 11/22/19 12:37 RBC 5.76 M/mm3 (4.7-6.0) 11/22/19 12:37 Hgb 15.3 gm/dL (13.5-18.0) 11/22/19 12:37 Hct 47.8 % (42.0-52.0) 11/22/19 12:37 MCV 83.0 fl (78-100) 11/22/19 12:37 MCH 26.6 pg (27-31) L 11/22/19 12:37 MCHC 32.0 g/dl (32-36) 11/22/19 12:37 RDW 14.4 % (11.5-14.0) H 11/22/19 12:37 Plt Count 432 K/mm3 (150-450) 11/22/19 12:37 MPV 9.6 fl (8-11.3) 11/22/19 12:37 Immature Gran % (Auto) 0.40 % (0.001-0.429) 11/22/19 12:37 Immature Gran # (Auto) 0.05 K/mm3 (0.000-0.0310) H 11/22/19 12:37 Neutrophils % 61.1 % (42-75.0) 11/22/19 12:37 Lymphocytes % 33.5 % (20-51) 11/22/19 12:37 Monocytes % 4.5 % (0.0-9) 11/22/19 12:37 Eosinophils % 0.4 % (0.0-3.0) 11/22/19 12:37 Basophils % 0.1 % (0.0-1.0) 11/22/19 12:37 Nucleated RBC % 0.0 k/mm3 (0-1) 11/22/19 12:37 Neutrophils # 8.5 K/mm3 (1.3-6.0) H 11/22/19 12:37 Lymphocytes # 4.64 k/mm3 (1.5-3.5) H 11/22/19 12:37 Monocytes # 0.6 k/mm3 (0.0-1.0) 11/22/19 12:37 Eosinophils # 0.1 k/mm3 (0.0-0.7) 11/22/19 12:37 Absolute Basophils 0.0 k/mm3 (0.0-0.1) 11/22/19 12:37 Sodium 135 mmol/L (132-142) 11/22/19 12:37 Plasma Sodium 140 mmol/L (130-142) 11/22/19 12:37 Potassium 3.7 mmol/L (3.4-4.6) 11/22/19 12:37 Chloride 96 mmol/L (97-106) L 11/22/19 12:37 Carbon Dioxide 22.8 mmol/L (24-32.6) L 11/22/19 12:37 Anion Gap 19.9 mmol/L (6.8-13.8) H 11/22/19 12:37 BUN 6 mg/dL (6-23) D 11/22/19 12:37 Creatinine 1.56 mg/dL (0.4-1.4) H 11/22/19 12:37 Est GFR (Non-Af Amer) 56 mL/min (60-130) L D 11/22/19 12:37 BUN/Creatinine Ratio 3.8 (9.0-21.6) L 11/22/19 12:37 Random Glucose 428 mg/dL (70-110) H 11/22/19 12:37 Calcium 9.1 mg/dL (7.9-10.9) 11/22/19 12:37 Calcium Adj for Albumin 9.0 mg/dL (8.4-10.2) 11/22/19 12:37 Total Bilirubin 0.3 mg/dL (0.0-1.1) 11/22/19 12:37 AST 25 U/L (0-48) 11/22/19 12:37 ALT 37 U/L (19-67) 11/22/19 12:37 Alkaline Phosphatase 145 U/L (50-170) 11/22/19 12:37 Total Protein 7.7 gm/dL (6.2-8.2) 11/22/19 12:37 Albumin 3.7 gm/dl (3.4-5.0) 11/22/19 12:37 TSH 0.502 uIU/mL (0.358-3.74) 11/22/19 12:37 Urine Color Yellow 11/22/19 14:07 Urine Appearance Clear (CLEAR) 11/22/19 14:07 Urine pH 7.0 pH (5.0-7.0) 11/22/19 14:07 Ur Specific [place] 1.010 SP.GR. (1.005-1.030) 11/22/19 14:07 Urine Protein Negative mg/dL (NEGATIVE) 11/22/19 14:07 Urine Glucose (UA) >=1000 mg/dL (NEGATIVE) H 11/22/19 14:07 Urine Ketones Negative mg/dL (NEGATIVE) 11/22/19 14:07 Urine Blood Negative /ul (NEGATIVE) 11/22/19 14:07 Urine Nitrate Negative (NEGATIVE) 11/22/19 14:07 Urine Bilirubin Negative mg/dl (NEGATIVE) 11/22/19 14:07 Urine Urobilinogen Normal EU/dl (NORMAL) 11/22/19 14:07 Ur Leukocyte Esterase Negative /ul (NEGATIVE) 11/22/19 14:07 Urine RBC Trace /hpf (0-5) 11/22/19 14:07 Urine WBC Trace /hpf (0-5) 11/22/19 14:07 Ur Epithelial Cells Trace /hpf (0-5) 11/22/19 14:07 Urine Bacteria Trace (NONE) 11/22/19 14:07 Urine Culture Comments No culture indicated 11/22/19 14:07 Salicylates Less than 2.8 mg/dL (2.8-20.0) L 11/22/19 12:37 Urine Opiates Screen Negative (NEGATIVE) 11/22/19 14:07 Acetaminophen Less than 0.2 mcg/mL (10.0-30.0) L 11/22/19 12:37 Barbiturate Screen Negative (NEGATIVE) 11/22/19 14:07 Ur Phencyclidine Scrn Negative (NEGATIVE) 11/22/19 14:07 Urine Amphetamine Negative (NEGATIVE) 11/22/19 14:07 U Benzodiazepines Scrn Negative (NEGATIVE) 11/22/19 14:07 Urine Cocaine Screen Negative (NEGATIVE) 11/22/19 14:07 Urine Marijuana (THC) Negative (NEGATIVE) 11/22/19 14:07 Ethyl Alcohol 265.0 mg/dL (0.0-10.0) H 11/22/19 12:37 Serum Ketones Negative (NEGATIVE) 11/22/19 12:37 Assessment/Plan - Assessment/Plan (1) Alcohol intoxication Assessment: He had a CIWA score in the ED of 12. Most recent score of 6. Will continue fluids, and prn ativan. He had a previous dependence on benzodiazepines in 2018, and was able to wean off. At the time, he was very glad to be off of them and didn't want to restart. However, will need to use benzos in this situation. I would not expect him to withdraw when his ETOH level is currently high, however - withdrawal starts when the individual has not had alcohol in a period of time. Drinking a fifth of rum daily is enough to withdraw, likely starting tomorrow. The symptoms of anxiety, tremors, sweating could be from him being in an anxious state. When he is no longer intoxicated, which would be tomorrow morning, he will be eligible for psych eval through [facility] for potential placement. Repeat CBC in am. Problem: Acute (2) Suicidal thoughts Assessment: When ETOH intoxication has resolved, will pursue psych eval through [facility]. He has access to guns, and his suicidal ideation involved shooting himself. He also works at the [employer], and will need to ensure he is not a danger to himself or others before going back to work. Problem: Acute (3) Diabetes mellitus with hyperglycemia Assessment: He's not been eating, and hasn't been taking all meds as prescribed. Will restart 20 U long acting insulin, and add SSI if needed. Problem: Chronic Qualifiers: Diabetes mellitus type: type 2 Diabetes mellitus nursing home insulin use: with chemistry teacher use Qualified Code(s): E11.65 - Type 2 diabetes mellitus with hyperglycemia; Z79.4 - assisted (current) use of insulin; Z79.4 - assisted (current) use of insulin; Z79.4 - soils engineer (current) use of insulin; Z79.4 - soils engineer (current) use of insulin (4) Fibromyalgia Assessment: continue home tramadol q6h. Problem: Chronic (5) Bipolar I disorder, moderate, current or most recent episode depressed, with anxious distress Assessment: Will hold his latuda and continue lithium. Problem: Chronic
[2019-11-22] MEDS ORDERED: LORazepam 1 MG TABLET PO PRN (17:08)
[2019-11-22] MEDS ORDERED: hydrOXYzine HCL 25 MG TABLET PO PRN (17:13)
[2019-11-22] MEDS ORDERED: lamoTRIgine 100 MG TABLET PO SCH (17:15)
[2019-11-22] MEDS ORDERED: THIAMINE HCL 100 MG/ML VIAL IM ONE (17:15)
[2019-11-22] MEDS: NORMAL SALINE 1,000 ML IV PRN (17:30)
[2019-11-22] MEDS: GABAPENTIN 400 MG CAPSULE PO SCH ×2 (17:33→20:59)
[2019-11-22] MEDS: traMADol HCL 50 MG TABLET PO SCH ×2 (17:33→22:29)
[2019-11-22] MEDS: PANTOPRAZOLE SODIUM 40 MG in NORMAL SALINE 100 ML IV SCH (17:36)
[2019-11-22] MEDS: lamoTRIgine 100 MG TABLET PO SCH (17:37)
[2019-11-22] MEDS: LORazepam 2 MG/ML DISP.SYRIN IV PRN (18:51)
[2019-11-22] MEDS: AMITRIPTYLINE HCL 50 MG TABLET PO SCH (20:58)
[2019-11-22] MEDS: INSULIN LISPRO 100 UNITS/ML VIAL SC SCH (21:27)
[2019-11-22] MEDS: MELATONIN 3,000 MCG TABLET PO SCH (22:29)
[2019-11-23] MEDS: NORMAL SALINE 1,000 ML IV PRN ×4 (00:28→20:16)
[2019-11-23] MEDS: traMADol HCL 50 MG TABLET PO SCH ×4 (04:17→23:08)
[2019-11-23 07:07] LABS: Hematocrit 39.3 % (42.0-52.0); Hemoglobin 12.4 gm/dL (13.5-18.0); Mean Cell Volume 84.9 fl (78-100); Mean Corpuscular Hemoglobin 26.8 pg (27-31); Mean Corpuscular Hgb Conc 31.6 g/dl (32-36); Mean Platelet Volume 10.1 fl (8-11.3); Neutrophil # 4.6 K/mm3 (1.3-6.0); Neutrophil % 48.4 % (42-75.0); Platelet Count 272 K/mm3 (150-450); Red Blood Count 4.63 M/mm3 (4.7-6.0); Red Cell Distribution Width 14.2 % (11.5-14.0); White Blood Count 9.5 K/mm3 (4.0-10.5)
[2019-11-23] MEDS: LORazepam 2 MG/ML DISP.SYRIN IV PRN (07:30)
[2019-11-23] MEDS: INSULIN LISPRO 100 UNITS/ML VIAL SC SCH ×4 (07:31→20:12)
[2019-11-23] MEDS: GABAPENTIN 400 MG CAPSULE PO SCH ×4 (09:20→20:06)
[2019-11-23] MEDS: LITHIUM CARBONATE 150 MG CAPSULE PO SCH (09:21)
[2019-11-23] MEDS: PROPRANOLOL HCL 10 MG TABLET PO SCH ×3 (09:21→16:06)
[2019-11-23] MEDS: LISINOPRIL 10 MG TABLET PO SCH (09:21)
[2019-11-23] MEDS: lamoTRIgine 100 MG TABLET PO SCH ×2 (09:21→16:09)
[2019-11-23] MEDS: INSULIN GLARGINE,HUM.REC.ANLOG 100 UNITS/ML VIAL SC SCH (09:22)
[2019-11-23 11:14] LABS: Albumin * 2.9 gm/dl (3.4-5.0); Anion Gap 11.2 mmol/L (6.8-13.8); BUN/Creatinine Ratio 8.1 (9.0-21.6); Bilirubin, Total 0.8 mg/dL (0.0-1.1); Ca. Corrected For Albumin 8.8 mg/dL (8.4-10.2); Calcium * 8.2 mg/dL (7.9-10.9); Carbon Dioxide 28.2 mmol/L (24-32.6); Potassium 5.4 mmol/L (3.4-4.6); Total Protein 5.8 gm/dL (6.2-8.2)
[2019-11-23] MEDS: hydrOXYzine HCL 25 MG TABLET PO PRN ×2 (12:32→18:33)
--- NOTE | 2019-11-23 12:55 | DS ---
Date of Discharge:: 11/23/19 Hospital Course: 28-year-old male admitted for suicide attempt and alcohol intoxication was evaluated at bedside was found to be afebrile and in no acute distress. Patient is now completely lucid and maintains stable vitals. He is oriented x3 and and does not show any neurological deficits. The patient was thought to be withdrawing from alcohol but since arriving he has not had any seizures or any other signs or symptoms of withdrawal. His only complaint at the moment is ongoing anxiety for which he takes hydroxyzine, the medication was optimized for better control of anxiety. We will administer a dose in order to relax him a bit. He has also been treated with Ativan on a as needed basis to cover for any symptoms of alcohol withdrawal. Patient underwent an evaluation by telehealth with [facility] and agreed to voluntary committal for suicidal ideation. He still expresses a desire to end his life but says he has no plan however he was determined that it would be best that he be committed. They are currently working on placement at a facility to help him. In the meantime follow-up labs done this morning revealed his alcohol levels have decreased down to normal and aside from a mildly elevated potassium his electrolytes are balanced. Labs done on admission revealed an acute kidney injury most likely secondary to dehydration since the patient had not been eating or drinking for more than 3 days. He was treated with IV hydration and was provided with a diabetic diet. Patient also had significant hyperglycemia which has improved with subcutaneous insulin. His creatinine and GFR have returned to baseline indicating resolution of the DIONI. We will wait for placement at a facility and once that occurs we will discharge him with his routine medications. Procedures Performed: none Results and Findings: Lab Pending Results 11/22/19 12:37: WBC 13.9 H, RBC 5.76, Hgb 15.3, Hct 47.8, MCV 83.0, MCH 26.6 L, MCHC 32.0, RDW 14.4 H, Plt Count 432, MPV 9.6, Immature Gran % (Auto) 0.40, Immature Gran # (Auto) 0.05 H, Neutrophils % 61.1, Lymphocytes % 33.5, Monocytes % 4.5, Eosinophils % 0.4, Basophils % 0.1, Nucleated RBC % 0.0, Neutrophils # 8.5 H, Lymphocytes # 4.64 H, Monocytes # 0.6, Eosinophils # 0.1, Absolute Basophils 0.0 11/22/19 12:37: Sodium 135, Plasma Sodium 140, Potassium 3.7, Chloride 96 L, Carbon Dioxide 22.8 L, Anion Gap 19.9 H, BUN 6 D, Creatinine 1.56 H, Est GFR (Non-Af Amer) 56 L D, BUN/Creatinine Ratio 3.8 L, Random Glucose 428 H, Calcium 9.1, Calcium Adj for Albumin 9.0, Total Bilirubin 0.3, AST 25, ALT 37, Alkaline Phosphatase 145, Total Protein 7.7, Albumin 3.7, TSH 0.502, Salicylates Less than 2.8 L, Acetaminophen Less than 0.2 L, Ethyl Alcohol 265.0 H 11/22/19 12:37: Serum Ketones Negative 11/22/19 12:37: [place] 0.4 L 11/22/19 14:07: Urine Color Yellow, Urine Appearance Clear, Urine pH 7.0, Ur Specific [place] 1.010, Urine Protein Negative, Urine Glucose (UA) >=1000 H, Urine Ketones Negative, Urine Blood Negative, Urine Nitrate Negative, Urine Bilirubin Negative, Urine Urobilinogen Normal, Ur Leukocyte Esterase Negative, Urine RBC Trace, Urine WBC Trace, Ur Epithelial Cells Trace, Urine Bacteria Trace, Urine Culture Comments No culture indicated 11/22/19 14:07: Urine Opiates Screen Negative, Barbiturate Screen Negative, Ur Phencyclidine Scrn Negative, Urine Amphetamine Negative, U Benzodiazepines Scrn Negative, Urine Cocaine Screen Negative, Urine Marijuana (THC) Negative 11/23/19 06:23: WBC 9.5 D, RBC 4.63 L, Hgb 12.4 L, Hct 39.3 L, MCV 84.9, MCH 26.8 L, MCHC 31.6 L, RDW 14.2 H, Plt Count 272, MPV 10.1, Immature Gran % (Auto) 0.40, Immature Gran # (Auto) 0.04 H, Neutrophils % 48.4, Lymphocytes % 42.2, Monocytes % 7.0, Eosinophils % 1.7, Basophils % 0.3, Nucleated RBC % 0.0, Neutrophils # 4.6, Lymphocytes # 4.00 H, Monocytes # 0.7, Eosinophils # 0.2, Absolute Basophils 0.0 11/23/19 06:23: Sodium 135, Plasma Sodium 138, Potassium 5.4 H D, Chloride 101, Carbon Dioxide 28.2, Anion Gap 11.2, BUN 10 D, Creatinine 1.24, Est GFR (Non-Af Amer) 73 D, BUN/Creatinine Ratio 8.1 L, Random Glucose 276 H D, Calcium 8.2, Calcium Adj for Albumin 8.8, Total Bilirubin 0.8, AST 27, ALT 31, Alkaline Phosphatase 122, Total Protein 5.8 L, Albumin 2.9 L 11/23/19 11:27: Ethyl Alcohol Less than 3.0 Discharge Location: [facility] Disposition: Psychiatric Hospital Condition: Fair Face to Face Encounter completed per [facility] Guidelines: No Discharge Activity: Activity as tolerated Discharge Diet: Consistent carbs Referrals: Genesis Herron DO [Primary Care Provider] - Prescriptions (Any new or edited meds): hydrOXYzine HCL [Atarax] 50 mg PO Q6H PRN #60 tab PRN Reason: anxiety Transmission Status: Pending to [facility] Complete Home Medications List: Complete Home Medication List: blood pressure test kit-large See Dose Instructions .ROUTE .MEDSUPPLY #1 ea 05/24/18 insulin syringe-needle U-100 0.3 mL 31 gauge x 5/16" See Dose Instructions .ROUTE .MEDSUPPLY #100 ea 11/12/18 insulin glargine 100 unit/mL (3 mL) subcutaneous pen 20 unit SUBCUT DAILY #15 ml 04/12/19 pen needle, diabetic 31 gauge x 5/16" See Rx Instructions .ROUTE .MEDSUPPLY #100 ea 04/12/19 blood sugar diagnostic See Rx Instructions .ROUTE .MEDSUPPLY #100 ea 05/06/19 lancets 30 gauge See Rx Instructions .ROUTE .MEDSUPPLY #200 ea 05/06/19 lamotrigine 100 mg tablet 50 mg PO .Qevening #15 tab 10/11/19 lamotrigine 200 mg tablet 200 mg PO DAILY #30 tab 10/11/19 lithium carbonate 300 mg tablet,extended release 600 mg PO DAILY #60 tab 10/11/19 propranolol 10 mg tablet 10 mg PO TID #90 tab 10/11/19 amitriptyline 50 mg tablet See Rx Instructions .ROUTE .COMPLEX #30 unknown measurement unit code: tablet 10/30/19 gabapentin 400 mg capsule See Rx Instructions .ROUTE .COMPLEX #240 unknown measurement unit code: capsule 10/30/19 lisinopril 10 mg tablet See Rx Instructions .ROUTE .COMPLEX #30 unknown measurement unit code: tablet 10/30/19 aspirin 325 mg tablet 325 mg PO DAILY #30 tab 10/31/19 tramadol 50 mg tablet 100 mg PO Q6H #240 tab 11/11/19 lurasidone 60 mg tablet 60 mg PO DAILY #30 tab 11/17/19 Cholecalciferol [Vitamin D] 10,000 unit PO Q7D 11/22/19 metFORMIN HCL [Metformin HCl] 500 mg PO BID 11/22/19 Melatonin 3,000 mcg PO HS tablet 11/23/19 hydrOXYzine HCL [Atarax] 50 mg PO Q6H PRN #60 tab 11/23/19
[2019-11-23] MEDS: PANTOPRAZOLE SODIUM 40 MG in NORMAL SALINE 100 ML IV SCH (16:14)
[2019-11-23] MEDS: MELATONIN 3,000 MCG TABLET PO SCH (20:06)
[2019-11-23] MEDS: AMITRIPTYLINE HCL 50 MG TABLET PO SCH (20:07)
--- NOTE | 2019-11-23 21:40 | PN ---
Subjective - Date and Time Seen Date: 11/23/19 Time: 21:30 Subjective Narrative: "I have thoughts of suicide" Objective Objective Narrative: 28-year-old male admitted for suicide attempt and alcohol intoxication was evaluated at bedside was found to be afebrile and in no acute distress. Patient is now completely lucid and maintains stable vitals. He is oriented x3 and and does not show any neurological deficits. The patient was thought to be withdrawing from alcohol but since arriving he has not had any seizures or any other signs or symptoms of withdrawal. His only complaint at the moment is ongoing anxiety for which he takes hydroxyzine, the medication was optimized for better control of anxiety. We will administer a dose in order to relax him a bit. He has also been treated with Ativan on a as needed basis to cover for any symptoms of alcohol withdrawal. Patient underwent an evaluation by telehealth with [facility] and agreed to voluntary committal for suicidal ideation. He still expresses a desire to end his life but says he has no plan however he has determined that it would be best that he be committed. Psych service at [facility] is currently working on placement at a facility to help him. In the meantime follow-up labs done this morning revealed his alcohol levels have decreased down to normal and aside from a mildly elevated potassium his electrolytes are balanced. Labs done on admission revealed an acute kidney injury most likely secondary to dehydration since the patient had not been eating or drinking for more than 3 days. He was treated with IV hydration and was provided with a diabetic diet. Patient also had significant hyperglycemia which has improved with subcutaneous insulin. His creatinine and GFR have returned to baseline indicating resolution of the DIONI. We will wait for placement at a facility and once that occurs we will discharge him with his routine medications. - Review of Systems Generalized/Overall Review: Reports: No Symptoms Reported EENTM: Reports: No Symptoms Reported Respiratory: Reports: No Symptoms Reported Cardiac: Reports: No Symptoms Reported Abdominal: Reports: No Symptoms Reported Genitourinary Symptoms: Reports: No Symptoms Reported Musculoskeletal Complaints: Reports: No Symptoms Reported Neurological: Reports: Anxiety, Depressed, Emotional Problems, Other - Suicidal ideation. Skin: Reports: No Symptoms Reported Endocrine: Reports: No Symptoms Reported - Vitals Vitals: Last Vital Signs Temp 36 C 11/23/19 19:00 Pulse 86 11/23/19 19:00 Resp 18 08/22/20 19:00 BP 147/94 H 08/22/20 19:00 Pulse Ox 100 11/23/19 19:00 - Abnormal Lab Findings Abnormal Lab Findings: Abnormal Lab Results 11/22/19 11/23/19 11/23/19 Range/Units 12:37 06:23 06:23 RBC 4.63 L (4.7-6.0) M/mm3 Hgb 12.4 L (13.5-18.0) gm/dL Hct 39.3 L (42.0-52.0) % MCH 26.8 L (27-31) pg MCHC 31.6 L (32-36) g/dl RDW 14.2 H (11.5-14.0) % Immature Gran # (Auto) 0.04 H (0.000-0.0310) K/mm3 Lymphocytes # 4.00 H (1.5-3.5) k/mm3 Potassium 5.4 H D (3.4-4.6) mmol/L BUN/Creatinine Ratio 8.1 L (9.0-21.6) Random Glucose 276 H D (70-110) mg/dL Total Protein 5.8 L (6.2-8.2) gm/dL Albumin 2.9 L (3.4-5.0) gm/dl [place] 0.4 L (0.6-1.2) mmol/L - Exam Constitutional: Present: Alert, Oriented x3, Cooperative, Well developed, Well nourished, No distress, Obese ENT Exam: Present: normal ENT inspection, hearing grossly normal, pharynx normal, TMs normal Neck: Present: non-tender, full range of motion, supple, normal inspection, trachea midline Breasts: Present: Exam deferred, Nontender Respiratory: Present: chest non-tender, lungs clear, normal breath sounds, no respiratory distress, no accessory muscle use Cardiovascular/Chest: Present: normal peripheral pulses, regular rate, rhythm, no chest tenderness, no edema, no gallop, no JVD, no murmur, no rub Abdomen: Present: Normal bowel sounds, soft, nontender, nondistended, no rebound tenderness, no hepatospenomegaly, no masses /Rectal: Present: Exam deferred Extremity: Present: normal range of motion, non-tender, normal inspection, no pedal edema, no calf tenderness, normal capillary refill, pelvis stable Skin Exam: Present: normal color, warm/dry, no cyanosis Lymphatic: Present: no adenopathy Neurologic: Present: 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
[2019-11-24] MEDS: hydrOXYzine HCL 25 MG TABLET PO PRN ×4 (01:53→23:02)
[2019-11-24] MEDS: NORMAL SALINE 1,000 ML IV PRN ×3 (02:59→16:36)
[2019-11-24] MEDS: traMADol HCL 50 MG TABLET PO SCH ×4 (04:52→23:01)
[2019-11-24] MEDS: INSULIN LISPRO 100 UNITS/ML VIAL SC SCH ×4 (07:15→21:08)
[2019-11-24] MEDS: lamoTRIgine 100 MG TABLET PO SCH ×2 (08:48→17:19)
[2019-11-24] MEDS: LISINOPRIL 10 MG TABLET PO SCH (08:48)
[2019-11-24] MEDS: PROPRANOLOL HCL 10 MG TABLET PO SCH ×3 (08:48→17:20)
[2019-11-24] MEDS: INSULIN GLARGINE,HUM.REC.ANLOG 100 UNITS/ML VIAL SC SCH (08:48)
[2019-11-24] MEDS: LITHIUM CARBONATE 150 MG CAPSULE PO SCH (08:49)
[2019-11-24] MEDS: GABAPENTIN 400 MG CAPSULE PO SCH ×4 (08:49→21:11)
[2019-11-24] MEDS ORDERED: ONDANSETRON HCL/PF 2 MG/ML VIAL IV PRN (09:33)
--- NOTE | 2019-11-24 09:42 | PN ---
Subjective - Date and Time Seen Date: 11/24/19 Time: 09:34 Subjective Narrative: I have nausea and vomiting, my stomach feels queasy. Objective Objective Narrative: 28-year-old male admitted for suicide attempt and alcohol intoxication was evaluated at bedside was found to be afebrile and in no acute distress however the patient complains of nausea and vomiting this morning. He reports during the night his stomach became queasy and he became extremely nauseous, the patient vomited several times. Patient is currently withdrawing from alcohol which might explain these symptoms, we will administer IV antiemetics in order to control the nausea and vomiting. Labs done yesterday morning revealed new hyperkalemia so we will repeat a CMP this morning in order to reevaluate his electrolytes, especially given these new symptoms. Aside from that the patient maintained stable vitals and is saturating adequately. He appears more relaxed and is not complaining of anxiety like yesterday, it appears the increase in his hydroxyzine helped. We are still waiting for bed placement for voluntary committal for suicidal ideation. - Review of Systems Generalized/Overall Review: Reports: No Symptoms Reported EENTM: Reports: No Symptoms Reported Respiratory: Reports: No Symptoms Reported Cardiac: Reports: No Symptoms Reported Abdominal: Reports: Nausea, Vomiting Genitourinary Symptoms: Reports: No Symptoms Reported Musculoskeletal Complaints: Reports: No Symptoms Reported Neurological: Reports: No Symptoms Reported Skin: Reports: No Symptoms Reported Endocrine: Reports: No Symptoms Reported - Vitals Vitals: Last Vital Signs Temp 36.7 C 11/24/19 06:57 Pulse 80 11/24/19 08:48 Resp 16 11/24/19 06:57 BP 128/77 11/24/19 08:48 Pulse Ox 100 11/24/19 06:57 - Abnormal Lab Findings Abnormal Lab Findings: Abnormal Lab Results 11/22/19 11/23/19 Range/Units 12:37 06:23 Potassium 5.4 H D (3.4-4.6) mmol/L BUN/Creatinine Ratio 8.1 L (9.0-21.6) Random Glucose 276 H D (70-110) mg/dL Total Protein 5.8 L (6.2-8.2) gm/dL Albumin 2.9 L (3.4-5.0) gm/dl [place] 0.4 L (0.6-1.2) mmol/L - Exam Constitutional: Present: Alert, Oriented x3, Cooperative, Well developed, Well nourished, No distress, Obese ENT Exam: Present: normal ENT inspection, hearing grossly normal, pharynx normal, TMs normal Neck: Present: non-tender, full range of motion, supple, normal inspection, trachea midline Breasts: Present: Exam deferred Respiratory: Present: chest non-tender, lungs clear, normal breath sounds, no respiratory distress, no accessory muscle use Cardiovascular/Chest: Present: normal peripheral pulses, regular rate, rhythm, no chest tenderness, no edema, no gallop, no JVD, no murmur, no rub Abdomen: Present: Normal bowel sounds, soft, nontender, nondistended, no rebound tenderness, no hepatospenomegaly, no masses, obese /Rectal: Present: Exam deferred Extremity: Present: normal range of motion, non-tender, normal inspection, no pedal edema, no calf tenderness, normal capillary refill, pelvis stable Skin Exam: Present: normal color, warm/dry, no cyanosis Lymphatic: Present: no adenopathy Neurologic: 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 We will continue to monitor him in managing him while we await bed placement at a psych facility. 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
[2019-11-24 10:15] LABS: Albumin * 2.7 gm/dl (3.4-5.0); Anion Gap 11.3 mmol/L (6.8-13.8); BUN/Creatinine Ratio 9.5 (9.0-21.6); Bilirubin, Total 0.4 mg/dL (0.0-1.1); Ca. Corrected For Albumin 8.9 mg/dL (8.4-10.2); Calcium * 8.2 mg/dL (7.9-10.9); Carbon Dioxide 25.7 mmol/L (24-32.6); Total Protein 5.8 gm/dL (6.2-8.2)
[2019-11-24] MEDS: PANTOPRAZOLE SODIUM 40 MG in NORMAL SALINE 100 ML IV SCH (17:20)
[2019-11-24] MEDS: AMITRIPTYLINE HCL 50 MG TABLET PO SCH (21:10)
[2019-11-24] MEDS: MELATONIN 3,000 MCG TABLET PO SCH (21:14)
[2019-11-24] MEDS: LORazepam 2 MG/ML DISP.SYRIN IV PRN (21:21)
[2019-11-25] MEDS: NORMAL SALINE 1,000 ML IV PRN ×2 (00:11→07:24)
[2019-11-25] MEDS: traMADol HCL 50 MG TABLET PO SCH ×4 (04:30→23:23)
[2019-11-25] MEDS: INSULIN LISPRO 100 UNITS/ML VIAL SC SCH ×4 (07:28→21:27)
[2019-11-25] MEDS ORDERED: LORazepam 1 MG TABLET PO SCH ×2 (08:18→16:45)
--- NOTE | 2019-11-25 08:19 | PN ---
Subjective - Date and Time Seen Date: 11/25/19 Time: 08:19 Subjective Narrative: Feels like his anxiety is still out of control. Is eating and drinking well. No psych bed availability yet. Objective - Review of Systems Generalized/Overall Review: Denies: Fever Respiratory: Denies: Shortness of Breath Cardiac: Denies: Chest Pain, Edema Abdominal: Denies: Vomiting Genitourinary Symptoms: Reports: No Symptoms Reported Musculoskeletal Complaints: Reports: No Symptoms Reported Neurological: Reports: Anxiety - Vitals Vitals: Last Vital Signs Temp 36.4 C 11/25/19 08:15 Pulse 75 11/25/19 08:15 Resp 16 11/25/19 08:15 BP 153/103 H 11/25/19 08:15 Pulse Ox 100 11/25/19 08:15 - Abnormal Lab Findings Abnormal Lab Findings: Abnormal Lab Results 11/24/19 Range/Units 09:56 Random Glucose 235 H (70-110) mg/dL Total Protein 5.8 L (6.2-8.2) gm/dL Albumin 2.7 L (3.4-5.0) gm/dl - Exam Constitutional: Present: Alert, Cooperative, No distress, Obese Respiratory: Present: lungs clear, normal breath sounds, no respiratory distress Cardiovascular/Chest: Present: regular rate, rhythm Abdomen: Present: soft - well healed surgical scar Extremity: Absent: lower extremity edema Appearance: Present: appropriate insight Assessment/Plan - Problems/Diagnosis (1) Suicidal thoughts Problem: Acute Narrative: The process has been started for transfer to an inpatient psychiatric facility, but no beds available currently. If he is unable to be transferred today, will ask Jaz Bautista to come see him. He'd prefer not to see Latrice. I anticipate the source of his suicidal ideation is from alcohol use interfering with his bipolar medications. He was threatening to shoot himself, and he has access to guns. Agree with inpatient treatment. He is medically cleared for transfer. (2) Alcohol abuse Problem: Acute Narrative: He last drank on Monday, so he could still be within the withdrawal window. Will change his prn ativan to scheduled ativan, as his anxiety is also uncontrolled. Discussed using short term benzos when it's time to DC. He had been in alcohol remission for several years prior to restarting to drink 6-9 months ago. 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 He required 14 units short acting on Sat and 10 U yesterday. Continue current regimen. (4) Fibromyalgia Problem: Chronic (5) Bipolar I disorder, moderate, current or most recent episode depressed, with anxious distress Problem: Chronic Narrative: Continue lamotrigine and lithium. (6) Elevated BP without diagnosis of hypertension Problem: Acute Narrative: BP 160's/110's this morning. Could be due to his anxiety. Has not yet taken his propranolol yet today. Anticipate his BP will improve after administration of propranolol and ativan.
[2019-11-25] MEDS: PROPRANOLOL HCL 10 MG TABLET PO SCH ×3 (08:23→16:14)
[2019-11-25] MEDS: lamoTRIgine 100 MG TABLET PO SCH ×2 (08:24→16:14)
[2019-11-25] MEDS: GABAPENTIN 400 MG CAPSULE PO SCH ×4 (08:24→21:22)
[2019-11-25] MEDS: INSULIN GLARGINE,HUM.REC.ANLOG 100 UNITS/ML VIAL SC SCH (08:25)
[2019-11-25] MEDS: LITHIUM CARBONATE 150 MG CAPSULE PO SCH (08:25)
[2019-11-25] MEDS: LISINOPRIL 10 MG TABLET PO SCH (08:25)
[2019-11-25] MEDS: hydrOXYzine HCL 25 MG TABLET PO PRN (11:16)
[2019-11-25] MEDS ORDERED: LORazepam 1 MG TABLET PO PRN (12:38)
[2019-11-25] MEDS ORDERED: OXAZEPAM 15 MG CAPSULE PO SCH (13:00)
--- NOTE | 2019-11-25 14:39 | PN ---
Progessiobhan Note - Interim Date: 11/25/19 Time: 12:30 Narrative: 11/25/19 14:36 Discussed with No at [facility]. He does not have an active suicidal plan, and denies being suicidal currently. His best friend killed himself at age 17, and he couldn't do that to anyone else. Meds and guns are locked up at home. Ativan is somewhat helping his anxiety. Will start serax, for longer control to combat alcohol cravings, and continue q6h prn po ativan. Will try to get his anxiety under better control, then OK for DC with psychiatry follow up. Referral to [facility] psych placed (through the clinic side of the EHR). Potential DC tomorrow.
[2019-11-25] MEDS: PANTOPRAZOLE SODIUM 40 MG in NORMAL SALINE 100 ML IV SCH (16:20)
[2019-11-25] MEDS: chlordiazePOXIDE HCL 10 MG CAPSULE PO SCH (17:26)
[2019-11-25] MEDS ORDERED: OXAZEPAM 15 MG PO SCH (21:00)
[2019-11-25] MEDS: AMITRIPTYLINE HCL 50 MG TABLET PO SCH (21:22)
[2019-11-25] MEDS: MELATONIN 3,000 MCG TABLET PO SCH (21:23)
[2019-11-25] MEDS: LORazepam 1 MG TABLET PO PRN (22:53)
[2019-11-26] MEDS: LORazepam 1 MG TABLET PO PRN ×2 (05:00→10:49)
[2019-11-26] MEDS: traMADol HCL 50 MG TABLET PO SCH ×2 (05:00→10:47)
[2019-11-26] MEDS: INSULIN LISPRO 100 UNITS/ML VIAL SC SCH (06:42)
--- NOTE | 2019-11-26 08:15 | DS ---
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 He had quit drinking until 6-9 months ago, and has been drinking a fifth of rum daily. He's been having more anxiety, and his psych provider has been trying to adjust his medications. Latuda dose was recently changed. His anxiety has gotten out of control, and he began having suicidal ideation the past couple of days. Had not eaten or slept in 3 days. In the ED, ETOH was 265, negative UDS. WBC slightly elevated at 13.9. He has an acute renal injury, with creatinine of 1.56 and GFR of 56. AST, ALT, alk phos normal. HIs CIWA score in the ED was 12. He is admitted for resolution of acute alcohol intoxication, and psych eval through [facility] to determine inpatient placement. He initially agreed to psych inpatient placement, but no beds were available. He was reassessed on day 4 of admission, and it was determined he was no longer suicidal. The suicidal ideation was felt to be secondary to acute alcohol intoxication. This was discussed with him, and he has had experience with a friend committing suicide, and he would not put people through that. 10 mg libruim tid was started on 11/25/19 to help decrease alcohol cravings. He did not have elevated CIWA scores. [facility] in my office, either in person or virtual later this week to see if this needs to be adjusted. Referral to psychiatry at [facility] placed, per his request. Mom reports guns and meds will be locked up at home. Procedures Performed: none Results and Findings: Lab Pending Results 11/22/19 12:37: WBC 13.9 H, RBC 5.76, Hgb 15.3, Hct 47.8, MCV 83.0, MCH 26.6 L, MCHC 32.0, RDW 14.4 H, Plt Count 432, MPV 9.6, Immature Gran % (Auto) 0.40, Immature Gran # (Auto) 0.05 H, Neutrophils % 61.1, Lymphocytes % 33.5, Monocytes % 4.5, Eosinophils % 0.4, Basophils % 0.1, Nucleated RBC % 0.0, Neutrophils # 8.5 H, Lymphocytes # 4.64 H, Monocytes # 0.6, Eosinophils # 0.1, Absolute Basophils 0.0 11/22/19 12:37: Sodium 135, Plasma Sodium 140, Potassium 3.7, Chloride 96 L, Carbon Dioxide 22.8 L, Anion Gap 19.9 H, BUN 6 D, Creatinine 1.56 H, Est GFR (Non-Af Amer) 56 L D, BUN/Creatinine Ratio 3.8 L, Random Glucose 428 H, Calcium 9.1, Calcium Adj for Albumin 9.0, Total Bilirubin 0.3, AST 25, ALT 37, Alkaline Phosphatase 145, Total Protein 7.7, Albumin 3.7, TSH 0.502, Salicylates Less than 2.8 L, Acetaminophen Less than 0.2 L, Ethyl Alcohol 265.0 H 11/22/19 12:37: Serum Ketones Negative 11/22/19 12:37: [place] 0.4 L 11/22/19 14:07: Urine Color Yellow, Urine Appearance Clear, Urine pH 7.0, Ur Specific [place] 1.010, Urine Protein Negative, Urine Glucose (UA) >=1000 H, Urine Ketones Negative, Urine Blood Negative, Urine Nitrate Negative, Urine Bilirubin Negative, Urine Urobilinogen Normal, Ur Leukocyte Esterase Negative, Urine RBC Trace, Urine WBC Trace, Ur Epithelial Cells Trace, Urine Bacteria Trace, Urine Culture Comments No culture indicated 11/22/19 14:07: Urine Opiates Screen Negative, Barbiturate Screen Negative, Ur Phencyclidine Scrn Negative, Urine Amphetamine Negative, U Benzodiazepines Scrn Negative, Urine Cocaine Screen Negative, Urine Marijuana (THC) Negative 11/23/19 06:23: WBC 9.5 D, RBC 4.63 L, Hgb 12.4 L, Hct 39.3 L, MCV 84.9, MCH 26.8 L, MCHC 31.6 L, RDW 14.2 H, Plt Count 272, MPV 10.1, Immature Gran % (Auto) 0.40, Immature Gran # (Auto) 0.04 H, Neutrophils % 48.4, Lymphocytes % 42.2, Monocytes % 7.0, Eosinophils % 1.7, Basophils % 0.3, Nucleated RBC % 0.0, Neutrophils # 4.6, Lymphocytes # 4.00 H, Monocytes # 0.7, Eosinophils # 0.2, Absolute Basophils 0.0 11/23/19 06:23: Sodium 135, Plasma Sodium 138, Potassium 5.4 H D, Chloride 101, Carbon Dioxide 28.2, Anion Gap 11.2, BUN 10 D, Creatinine 1.24, Est GFR (Non-Af Amer) 73 D, BUN/Creatinine Ratio 8.1 L, Random Glucose 276 H D, Calcium 8.2, Calcium Adj for Albumin 8.8, Total Bilirubin 0.8, AST 27, ALT 31, Alkaline Phosphatase 122, Total Protein 5.8 L, Albumin 2.9 L 11/23/19 11:27: Ethyl Alcohol Less than 3.0 11/24/19 09:56: Sodium 137, Plasma Sodium 139, Potassium 4.0 D, Chloride 104, Carbon Dioxide 25.7, Anion Gap 11.3, BUN 10, Creatinine 1.05, Est GFR (Non-Af Amer) 88 D, BUN/Creatinine Ratio 9.5, Random Glucose 235 H, Calcium 8.2, Calcium Adj for Albumin 8.9, Total Bilirubin 0.4, AST 22, ALT 26, Alkaline Phosp hatase 128, Total Protein 5.8 L, Albumin 2.7 L Discharge Location: Home Disposition: Home self-care Condition: Fair Discharge Activity: Activity as tolerated Discharge Diet: General/regular food Referrals: Genesis Herron DO [Primary Care Provider] - 11/29/19 Prescriptions (Any new or edited meds): hydrOXYzine HCL [Atarax] 50 mg PO Q6H PRN #60 tab PRN Reason: anxiety Transmission Status: Received by [facility] LORazepam [Ativan] 1 mg PO Q6H PRN #56 tablet PRN Reason: Anxiety Transmission Status: Sent to [facility] chlordiazePOXIDE HCL [Librium] 10 mg PO TID #90 capsule Transmission Status: Sent to [facility] Complete Home Medications List: Complete Home Medication List: blood pressure test kit-large See Dose Instructions .ROUTE .MEDSUPPLY #1 ea 05/24/18 insulin syringe-needle U-100 0.3 mL 31 gauge x 08/16" See Dose Instructions .ROUTE .MEDSUPPLY #100 ea 11/12/18 insulin glargine 100 unit/mL (3 mL) subcutaneous pen 20 unit SUBCUT DAILY #15 ml 04/12/19 pen needle, diabetic 31 gauge x 5" See Rx Instructions .ROUTE .MEDSUPPLY #100 ea 04/12/19 blood sugar diagnostic See Rx Instructions .ROUTE .MEDSUPPLY #100 ea 05/06/19 lancets 30 gauge See Rx Instructions .ROUTE .MEDSUPPLY #200 ea 05/06/19 lamotrigine 100 mg tablet 50 mg PO .Qevening #15 tab 10/11/19 lamotrigine 200 mg tablet 200 mg PO DAILY #30 tab 10/11/19 lithium carbonate 300 mg tablet,extended release 600 mg PO DAILY #60 tab 10/11/19 propranolol 10 mg tablet 10 mg PO TID #90 tab 10/11/19 amitriptyline 50 mg tablet See Rx Instructions .ROUTE .COMPLEX #30 unknown measurement unit code: tablet 10/30/19 gabapentin 400 mg capsule See Rx Instructions .ROUTE .COMPLEX #240 unknown measurement unit code: capsule 10/30/19 lisinopril 10 mg tablet See Rx Instructions .ROUTE .COMPLEX #30 unknown measurement unit code: tablet 10/30/19 aspirin 325 mg tablet 325 mg PO DAILY #30 tab 10/31/19 tramadol 50 mg tablet 100 mg PO Q6H #240 tab 11/11/19 lurasidone 60 mg tablet 60 mg PO DAILY #30 tab 11/17/19 Cholecalciferol [Vitamin D] 10,000 unit PO Q7D 11/22/19 metFORMIN HCL [Metformin HCl] 500 mg PO BID 11/22/19 Melatonin 3,000 mcg PO HS tab 11/23/19 hydrOXYzine HCL [Atarax] 50 mg PO Q6H PRN #60 tab 11/23/19 LORazepam [Ativan] 1 mg PO Q6H PRN #56 tablet 11/26/19 chlordiazePOXIDE HCL [Librium] 10 mg PO TID #90 capsule 11/26/19 Forms: Patient Portal Registration
[2019-11-26] MEDS: lamoTRIgine 100 MG TABLET PO SCH (08:55)
[2019-11-26] MEDS: PROPRANOLOL HCL 10 MG TABLET PO SCH (08:55)
[2019-11-26] MEDS: LISINOPRIL 10 MG TABLET PO SCH (08:56)
[2019-11-26] MEDS: LITHIUM CARBONATE 150 MG CAPSULE PO SCH (08:56)
[2019-11-26] MEDS: GABAPENTIN 400 MG CAPSULE PO SCH (09:00)
[2019-11-26] MEDS: hydrOXYzine HCL 25 MG TABLET PO PRN (09:00)
[2019-11-26] MEDS ORDERED: INSULIN GLARGINE,HUM.REC.ANLOG 100 UNITS/ML VIAL SC SCH (09:00)
[2019-11-26] MEDS: chlordiazePOXIDE HCL 10 MG CAPSULE PO SCH (09:02)
[2019-11-26 11:08] VITALS: BP 152/96
== END 2019-11-26 10:55 | disposition home or self-care (01) ==
LOC: ER 12:01 → SCU 12:01 → MS 19:52
PROVIDERS: ADMIT Family Medicine; ATTEND Family Medicine
DX: R11.2 Nausea with vomiting, unspecified; M79.7 Fibromyalgia; R45.851 Suicidal ideations; F10.220 Alcohol dependence with intoxication, uncomplicated; F31.30 Bipolar disorder, current episode depressed, mild or moderate severity, unspecified; F10.239 Alcohol dependence with withdrawal, unspecified; F41.8 Other specified anxiety disorders; E87.5 Hyperkalemia; E11.65 Type 2 diabetes mellitus with hyperglycemia
CPT/HCPCS: 36415; 80053; 80178; 80307; 81001; 82009; 84443; 85025; 96365; 96366; 96372; 96375; 96376; 99284; 99285; G0378; G0480; J2405

== ENCOUNTER 2020-07-17 19:39 | Inpatient (IN) ==
[2020-07-17] MEDS ORDERED: CLINDAMYCIN IN 0.9 % SOD CHLOR 900 MG/50 ML BAG IV ONE (20:37)
[2020-07-17] MEDS ORDERED: LEVOFLOXACIN IN DEXTROSE 5 % 750 MG/150 ML BAG IV ONE (20:38)
--- NOTE | 2020-07-17 20:43 | ERNOTE ---
Lower Extremity HPI - Narrative Date of Service: 07/17/20 - General Lower Extremities Pain: foot: left - Second toe swollen red purulent discharge Time Seen by Provider: 07/17/20 20:23 Source: patient Exam Limitations: no limitations - Immun/Allergies/Home Medications Immunizations: IMMUNIZATION HX Immunizations Up to Date Yes History of Influenza Vaccine No Hx Pneumococcal Vaccination No Allergies/Adverse Reactions: Allergies Allergy/AdvReac Type Severity Reaction Status Date / Time quetiapine [From Seroquel] AdvReac Unknown delirium Verified 12/13/19 09:55 Home Medications: HOME MEDICATIONS Cholecalciferol [Vitamin D] 10,000 unit PO Q7D 11/22/19 [Last Taken Unknown] lorazepam 2 mg tablet 2 mg PO Q6H PRN #60 tab 12/13/19 [Last Taken Unknown] propranolol 20 mg tablet 20 mg PO TID #90 tab 12/13/19 [Last Taken Unknown] metformin 500 mg tablet 500 mg PO BID #60 tab 06/01/20 [Last Taken Unknown] Aripiprazole 2 mg PO DAILY 06/10/20 [Last Taken Unknown] Desvenlafaxine Fumarate [Desvenlafaxine Fumarate ER] 100 mg PO HS 06/10/20 [Last Taken Unknown] Insulin Glargine,Hum.rec.anlog [Basaglar KwikPen U-100 Insulin] 24 unit SUBCUT DAILY 06/10/20 [Last Taken Unknown] Melatonin 3,000 mcg PO HS PRN 06/10/20 [Last Taken Unknown] traZODone HCL [Trazodone HCl] 200 mg PO HS 06/10/20 [Last Taken Unknown] tramadol 50 mg tablet 100 mg PO Q6H #24 tab 07/13/20 [Last Taken Unknown] Amitriptyline HCl [Elavil] 50 mg PO HS 07/17/20 [Last Taken Unknown] Aspirin [Aspirin EC] 325 mg PO DAILY 07/17/20 [Last Taken Unknown] Gabapentin 800 mg PO QID 07/17/20 [Last Taken Unknown] Lisinopril [Prinivil] 10 mg PO DAILY 07/17/20 [Last Taken Unknown] - History of Present Illness Narrative: 33-year-old male noticed in the last 48 hours left second toe was swollen red and has gotten worse in the last 2 days it is oozing purulent excoriated the foot is red and hot extending into the the ankle he also has a fever which started earlier tonight 100.4 although he feels hotter amoxicillin Date (Duration): 07/17/20 Time (Timing): 20:40 Occurred: yesterday Location of Incident: home Method of Injury: Reports: no apparent injury, other - 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 Reason for Fall: Reports: unknown Loss of Consciousness: Reports: no loss of consciousness Modifying Factors - (Improves): Reports: cold therapy Modifying Factors - (Worsens): Reports: cold therapy Associated Symptoms: Reports: unable to bear weight Other Injuries: Reports: none Subsequent Symptoms: Reports: numbness Prior Treament: Reports: recently seen Review of Systems - Review of Systems Constitutional: Present: no symptoms reported EYE: Present: no symptoms reported ENT: Present: no symptoms reported Respiratory: Present: no symptoms reported Cardiology: Present: no symptoms reported Gastrointestinal/Abdominal: Present: no symptoms reported Genitourinary: Present: no symptoms reported Musculoskeletal: Present: no symptoms reported Skin: Present: no symptoms reported Neurological: Present: no symptoms reported Endocrine: Present: no symptoms reported Hematologic/Lymphatic: Present: no symptoms reported Psych: Present: no symptoms reported All Other Systems: All systems neg except as marked Medical History (Last Reviewed 07/17/20 @ 20:41 by Jose Martin Banegas MD) Diabetes mellitus type 2, insulin dependent Encounter for management of vacuum-assisted closure (VAC) of wound Onset Date: ~2017 Anxiety Onset Date: ~09/01/16 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 09/18/17 Benign essential HTN Onset Date: ~2012 Bipolar illness Onset Date: ~08/16/16 Depression Onset Date: ~04/28/17 Diabetes mellitus Onset Date: ~2012 Diabetic skin ulcer Onset Date: ~05/09/17 Erectile dysfunction Onset Date: ~08/16/16 Fibromyalgia Onset Date: ~06/10/16 Ileostomy present Onset Date: ~09/2017 Insomnia Onset Date: ~06/16/16 sleep study 05/01/11: AHI 3/hr, lowest O2 sat 82%, FMCH Ischemic colon Metabolic syndrome Onset Date: ~06/10/16 Obesity Onset Date: ~06/10/16 Panic disorder Onset Date: ~09/07/16 Perleche Onset Date: ~07/11/16 Stiffness due to immobility Onset Date: ~08/16/16 Vitamin D deficiency Onset Date: ~05/09/17 Alcohol abuse, 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 2015 Bipolar disorder, current episode manic without psychotic features (Resolved) With anxious distress Benzodiazepine abuse (Inactive) Surgical History: Surgical History (Last Reviewed 07/17/20 @ 20:41 by Jose Martin Banegas MD) H/O skin graft H/O rhinoplasty Onset Date: ~2005 H/O wisdom tooth extraction Onset Date: ~2006 History of exploratory laparotomy Onset Date: ~09/2017 History of right hemicolectomy Onset Date: ~09/2017 Family History: Family History (Last Reviewed 07/17/20 @ 19:45 by Elly Marinelli RN) Brother Alive and well Brother Alive and well Brother Alive and well Father Hypertension Diabetes Mother Alive and well Child Alive and well Social History: (Last Reviewed 07/17/20 @ 19:45 by Elly Marinelli RN) Social History: adopted: No Marital status: lives independently: No household members: spouse number of children: 1 current occupational status: employed 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 Highest level of school completed/degree received: some college, no degree Service: No Tobacco: Smoking Status: Never smoker Alcohol: alcohol intake: current Substance Use: substance use type: does not use Dietary Habits: caffeine: Yes Physical Exam - Physical Exam General Appearance: Present: wd/wn, alert, moderate distress Head Exam: Present: normal inspection Eye Exam: Normal inspection: bilateral Ears, Nose, Throat: Present: normal ENT inspection, dry mucous membranes, other - Face flushed hot Neck: Present: normal inspection Respiratory: Present: no respiratory distress Cardiovascular/Chest: Present: tachycardia Gastrointestinal/Abdominal: Present: normal bowel sounds Back Exam: Present: normal inspection Extremity Exam: Present: other - Left second toe swollen tender excoriated purulent drainage dorsum of the left foot is red and hot extending into the left lower leg. Absent: normal inspection, no edema Neurological Exam: Present: alert, oriented Skin Exam: Present: warm/dry Lymphatic Exam: Present: no adenopathy Progress - Results and Orders Patient's Lab Results:: I have reviewed the patient's lab results. Results and Orders: Laboratory Tests 07/17/20 07/17/20 21:00 21:00 WBC 15.8 H RBC 4.34 L Hgb 12.5 L Hct 39.7 L MCV 91.5 MCH 28.8 MCHC 31.5 L MPV 11.8 H Neutrophils % 79.1 H Lymphocytes % 12.0 L Sodium 130 L Plasma Sodium 133 Potassium 4.1 Chloride 96 L Carbon Dioxide 27.6 Anion Gap 10.5 Creatinine 1.27 Est GFR (Non-Af Amer) 70 BUN/Creatinine Ratio 9.4 Random Glucose 299 H Calcium 8.9 Calcium Adj for Albumin 9.2 Total Bilirubin 0.7 AST 22 ALT 38 Alkaline Phosphatase 293 H Total Protein 7.9 Albumin 3.2 L - Vital Signs Patient's Vital Signs:: I have reviewed the patient's vital signs. Vital Signs: Vital Signs 07/17/20 19:45 07/17/20 20:32 Temperature 37.9 C Pulse Rate 114 H 105 H Respiratory Rate 16 14 Blood Pressure 180/116 H 125/57 O2 Sat by Pulse Oximetry 100 100 Temperature elevated pulse rate elevated blood pressure elevated - X-Ray X-Ray #1 X-Ray: foot Interpretation: Interp. by co X-ray Comments: [place] [address] NAME: Nehemiah Wooten : 1990 MR #: [id number] CC: LOC: ADM DATE: DIS DATE: X-RAY REPORT ~[id number] RAD/Foot 3 Views LT *~ Exam Date: 07/17/2020 20:52 Ordering Physician: Jose Martin Banegas MD HISTORY: 2nd toe pain, open diabetic wound, purulent THREE VIEW LEFT FOOT COMPARISON: None Technique: Portable AP, oblique, and lateral views of the foot were obtained. Findings: There is bony destruction involving the distal phalanx of the second toe with air in the soft tissues concerning for gas gangrene. There is diffuse soft tissue swelling involving the second toe. The remaining phalanges and interphalangeal joints are normal in appearance on the portable AP and oblique projections; there is overlap on the lateral study. The metatarsal/phalangeal joints are maintained. The metatarsals are intact. The tarsal bones demonstrate normal alignment and I'm not convinced of a definable acute tarsal bone abnormality. Additional sagittal involving the distal half of the foot.. IMPRESSION: 1. BONY DESTRUCTION INVOLVING THE DISTAL JOINTS OF THE SECOND TOE CONSISTENT WITH OSTEOMYELITIS. ADDITIONALLY, THERE IS AIR WITHIN THE SOFT TISSUES OF THE DISTAL ASPECT OF THE SECOND TOE CONCERNING FOR GAS GANGRENE. 2. SOFT TISSUE INVOLVING THE SECOND TOE WITH ADDITIONAL SWELLING INVOLVING THE DISTAL HALF OF THE FOOT. Electronically signed by Vel Anderson M.D.. Vel Anderson MD - Progress/Reassessment Chief Complaint: Foot Injury/Pain Plan - Plan Plan: Spoke with Dr. Wells is accepted patient for admission will be in to see patients Departure Clinical Impression: Acute osteomyelitis of toe of left foot - Departure Disposition: Short Term Hospital Inpatient Condition: Stable Referrals: Genesis Herron DO [Primary Care Provider] -
[2020-07-17] MEDS ORDERED: HYDROmorphone HCL 1 MG/ML DISP.SYRIN IV ONE ×4 (20:54→23:37)
[2020-07-17] MEDS ORDERED: ACETAMINOPHEN 500 MG TABLET PO ONE (21:03)
[2020-07-17 21:10] LABS: Hematocrit 39.7 % (42.0-52.0); Hemoglobin 12.5 gm/dL (13.5-18.0); Mean Cell Volume 91.5 fl (78-100); Mean Corpuscular Hemoglobin 28.8 pg (27-31); Mean Corpuscular Hgb Conc 31.5 g/dl (32-36); Mean Platelet Volume 11.8 fl (8-11.3); Neutrophil # 12.5 K/mm3 (1.3-6.0); Neutrophil % 79.1 % (42-75.0); Platelet Count 265 K/mm3 (150-450); Red Blood Count 4.34 M/mm3 (4.7-6.0); Red Cell Distribution Width 12.2 % (11.5-14.0); White Blood Count 15.8 K/mm3 (4.0-10.5)
[2020-07-17 21:24] LABS: Albumin * 3.2 gm/dl (3.4-5.0); Anion Gap 10.5 mmol/L (6.8-13.8); BUN/Creatinine Ratio 9.4 (9.0-21.6); Bilirubin, Total 0.7 mg/dL (0.0-1.1); Ca. Corrected For Albumin 9.2 mg/dL (8.4-10.2); Calcium * 8.9 mg/dL (7.9-10.9); Carbon Dioxide 27.6 mmol/L (24-32.6); Potassium 4.1 mmol/L (3.4-4.6); Total Protein 7.9 gm/dL (6.2-8.2)
[2020-07-18] MEDS ORDERED: MORPHINE SULFATE 10 MG/ML SYRG IV PRN (02:04)
--- NOTE | 2020-07-18 02:20 | HP ---
Chief Complaint - Chief Complaint Date of Service: 07/18/20 Time of Service: 02:19 Chief Complaint: Left foot infection, left toe pain, osteomyelitis History of Present Illness: 29-year-old male with history of insulin-dependent diabetes presented to the ER last night after getting off his work due to left foot pain and infection. Patient states that he noticed his second toe on his left foot started to get red and tender roughly 48 hours ago and progressively worsened over the course of the next 2 days prior to going to the ER. Patient states that once he got off work he took off his work boots and there was significant drainage and tenderness and it looked much worse than it had previously. In the ER he had an x-ray which showed cortical destruction of his distal phalanx of the second toe with subcutaneous gas. Patient had a white count of 15.8. Patient was started on Levaquin and clindamycin. Patient was requiring Dilaudid for pain control. Patient was admitted as an inpatient for osteomyelitis of his left second toe a nd will likely require surgical intervention. Patient will need an MRI of his foot which will have to be obtained on Monday for further evaluation of the severity of the infection which will help determine what surgical case is appropriate. We will consult podiatry today. Patient also has history of hypertension, bipolar disorder, depression, fibromyalgia, insomnia, and obesity. 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 09/18/17 Benign essential HTN Onset Date: ~2012 Bipolar illness Onset Date: ~08/16/16 Depression Onset Date: ~04/28/17 Diabetes mellitus Onset Date: ~2012 Diabetic skin ulcer Onset Date: ~05/09/17 Erectile dysfunction Onset Date: ~08/16/16 Fibromyalgia Onset Date: ~06/10/16 Ileostomy present Onset Date: ~09/2017 Insomnia Onset Date: ~06/16/16 sleep study 05/01/11: AHI 3/hr, lowest O2 sat 82%, FMCH Ischemic colon Metabolic syndrome Onset Date: ~06/10/16 Obesity Onset Date: ~06/10/16 Panic disorder Onset Date: ~09/07/16 Perleche Onset Date: ~07/11/16 Stiffness due to immobility Onset Date: ~08/16/16 Vitamin D deficiency Onset Date: ~05/09/17 Alcohol abuse, 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 2015 Bipolar disorder, current episode manic without psychotic features (Resolved) With anxious distress Benzodiazepine abuse (Inactive) Surgical History: Surgical History (Last Reviewed 07/18/20 @ 00:40 by Daphne Guadalupe RN) H/O skin graft H/O rhinoplasty Onset Date: ~2005 H/O wisdom tooth extraction Onset Date: ~2006 History of exploratory laparotomy Onset Date: ~09/2017 History of right hemicolectomy Onset Date: ~09/2017 Family History: Family History (Last Reviewed 07/18/20 @ 00:40 by Daphne Guadalupe RN) Brother Alive and well Brother Alive and well Brother Alive and well Father Hypertension Diabetes Mother Alive and well Child Alive and well Social History: (Last Updated 07/18/20 @ 03:56 by Daphne Guadalupe RN) Social History: adopted: No Marital status: Marital status comment: , living with parents lives independently: No household members: family number of children: 1 caregiver/support person: No current occupational status: employed 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 Absent: Weakness, Chills EENTM: Present: No Symptoms Reported Respiratory: Present: No Symptoms Reported Cardiac: Present: No Symptoms Reported Abdominal: Present: No Symptoms Reported Genitourinary: Present: No Symptoms Reported Musculoskeletal: Present: Other - Left lower extremity pain secondary to his infection Neurological: Present: No Symptoms Reported Skin: Present: Other - Redness, drainage, necrosis of the second toe on the left Immunizations: IMMUNIZATION HX Immunizations Up to Date Yes History of Influenza Vaccine No Hx Pneumococcal Vaccination No Allergies/Adverse Reactions: Allergies Allergy/AdvReac Type Severity Reaction Status Date / Time quetiapine [From Seroquel] AdvReac Unknown delirium Verified 12/13/19 09:55 Home Medications: HOME MEDICATIONS Cholecalciferol [Vitamin D] 10,000 unit PO Q7D 11/22/19 [Last Taken Unknown] lorazepam 2 mg tablet 2 mg PO Q6H PRN #60 tab 12/13/19 [Last Taken Unknown] propranolol 20 mg tablet 20 mg PO TID #90 tab 12/13/19 [Last Taken Unknown] metformin 500 mg tablet 500 mg PO BID #60 tab 06/01/20 [Last Taken Unknown] Aripiprazole 2 mg PO DAILY 06/10/20 [Last Taken Unknown] Desvenlafaxine Fumarate [Desvenlafaxine Fumarate ER] 100 mg PO HS 06/10/20 [Last Taken Unknown] Insulin Glargine,Hum.rec.anlog [Basaglar KwikPen U-100 Insulin] 24 unit SUBCUT DAILY 06/10/20 [Last Taken Unknown] Melatonin 3,000 mcg PO HS PRN 06/10/20 [Last Taken Unknown] traZODone HCL [Trazodone HCl] 200 mg PO HS 06/10/20 [Last Taken Unknown] tramadol 50 mg tablet 100 mg PO Q6H #24 tab 07/13/20 [Last Taken Unknown] Amitriptyline HCl [Elavil] 50 mg PO HS 07/17/20 [Last Taken Unknown] Aspirin [Aspirin EC] 325 mg PO DAILY 07/17/20 [Last Taken Unknown] Gabapentin 800 mg PO QID 07/17/20 [Last Taken Unknown] Lisinopril [Prinivil] 10 mg PO DAILY 07/17/20 [Last Taken Unknown] Exam - Exam Vital Signs: Vital Signs - Last Taken Temp 37.3 C 07/18/20 00:15 Pulse 88 07/18/20 00:15 Resp 22 H 07/18/20 00:15 BP 122/62 07/18/20 00:15 Pulse Ox 96 07/18/20 00:15 Constitutional: Present: Alert, Oriented x3, Cooperative, Moderate distress Eye Exam: bilateral eye: normal inspection, EOMI Neck: Present: non-tender, supple Respiratory: Present: lungs clear, normal breath sounds, no respiratory distress Cardiovascular/Chest: Present: regular rate, rhythm, no murmur Abdomen: Present: soft, nontender, nondistended Extremity: Present: other - Significant necrosis with underlying cellulitic infection of his second toe movement up into the proximal aspect of his forefoot with purulent drainage. Small bullae on the dorsum of his forefoot. Very tender Appearance: Present: appropriate appearance, appropriate insight Eye contact: Present: cooperative, good eye contact Thoughts: Present: normal thought pattern, normal mood /affect Diagnostic Studies: Abnormal Lab Results 07/17/20 07/17/20 Range/Units 21:00 21:00 WBC 15.8 H (4.0-10.5) K/mm3 RBC 4.34 L (4.7-6.0) M/mm3 Hgb 12.5 L (13.5-18.0) gm/dL Hct 39.7 L (42.0-52.0) % MCHC 31.5 L (32-36) g/dl MPV 11.8 H (8-11.3) fl Immature Gran # (Auto) 0.07 H (0.000-0.0310) K/mm3 Neutrophils % 79.1 H (42-75.0) % Lymphocytes % 12.0 L (20-51) % Neutrophils # 12.5 H (1.3-6.0) K/mm3 Monocytes # 1.1 H (0.0-1.0) k/mm3 Sodium 130 L (132-142) mmol/L Chloride 96 L (97-106) mmol/L Random Glucose 299 H (70-110) mg/dL Alkaline Phosphatase 293 H (50-170) U/L Albumin 3.2 L (3.4-5.0) gm/dl Laboratory Results WBC 15.8 K/mm3 (4.0-10.5) H 07/17/20 21:00 RBC 4.34 M/mm3 (4.7-6.0) L 07/17/20 21:00 Hgb 12.5 gm/dL (13.5-18.0) L 07/17/20 21:00 Hct 39.7 % (42.0-52.0) L 07/17/20 21:00 MCV 91.5 fl (78-100) 07/17/20 21:00 MCH 28.8 pg (27-31) 07/17/20 21:00 MCHC 31.5 g/dl (32-36) L 07/17/20 21:00 RDW 12.2 % (11.5-14.0) 07/17/20 21:00 Plt Count 265 K/mm3 (150-450) 07/17/20 21:00 MPV 11.8 fl (8-11.3) H 07/17/20 21:00 Immature Gran % (Auto) 0.40 % (0.001-0.429) 07/17/20 21:00 Immature Gran # (Auto) 0.07 K/mm3 (0.000-0.0310) H 07/17/20 21:00 Neutrophils % 79.1 % (42-75.0) H 07/17/20 21:00 Lymphocytes % 12.0 % (20-51) L 07/17/20 21:00 Monocytes % 7.1 % (0.0-9) 07/17/20 21:00 Eosinophils % 1.3 % (0.0-3.0) 07/17/20 21:00 Basophils % 0.1 % (0.0-1.0) 07/17/20 21:00 Nucleated RBC % 0.0 k/mm3 (0-1) 07/17/20 21:00 Neutrophils # 12.5 K/mm3 (1.3-6.0) H 07/17/20 21:00 Lymphocytes # 1.89 k/mm3 (1.5-3.5) 07/17/20 21:00 Monocytes # 1.1 k/mm3 (0.0-1.0) H 07/17/20 21:00 Eosinophils # 0.2 k/mm3 (0.0-0.7) 07/17/20 21:00 Absolute Basophils 0.0 k/mm3 (0.0-0.1) 07/17/20 21:00 Sodium 130 mmol/L (132-142) L 07/17/20 21:00 Plasma Sodium 133 mmol/L (130-142) 07/17/20 21:00 Potassium 4.1 mmol/L (3.4-4.6) 07/17/20 21:00 Chloride 96 mmol/L (97-106) L 07/17/20 21:00 Carbon Dioxide 27.6 mmol/L (24-32.6) 07/17/20 21:00 Anion Gap 10.5 mmol/L (6.8-13.8) 07/17/20 21:00 BUN 12 mg/dL (6-23) 07/17/20 21:00 Creatinine 1.27 mg/dL (0.4-1.4) 07/17/20 21:00 Est GFR (Non-Af Amer) 70 mL/min (60-130) 07/17/20 21:00 BUN/Creatinine Ratio 9.4 (9.0-21.6) 07/17/20 21:00 Random Glucose 299 mg/dL (70-110) H 07/17/20 21:00 Lactic Acid, Venous 1.9 mmol/L (0.4-2.0) 07/17/20 21:00 Calcium 8.9 mg/dL (7.9-10.9) 07/17/20 21:00 Calcium Adj for Albumin 9.2 mg/dL (8.4-10.2) 07/17/20 21:00 Total Bilirubin 0.7 mg/dL (0.0-1.1) 07/17/20 21:00 AST 22 U/L (0-48) 07/17/20 21:00 ALT 38 U/L (19-67) 07/17/20 21:00 Alkaline Phosphatase 293 U/L (50-170) H 07/17/20 21:00 Total Protein 7.9 gm/dL (6.2-8.2) 07/17/20 21:00 Albumin 3.2 gm/dl (3.4-5.0) L 07/17/20 21:00 SARS-CoV-2 (PCR) Not detected (NotDetected) 07/17/20 22:30 Assessment/Plan - Narrative Narrative: 29-year-old male with acute osteomyelitis of the second toe, concerning for infection spread into his forefoot. Patient was put on Levaquin and clindamycin by the ER provider which we will continue at this time but if he does not show improvement in his labs we will switch him over to vancomycin and Zosyn. Repeat CBC showed mild improvement in his white count but still elevated. Patient's hemogram shows him to be mildly anemic. CHEM panel shows mild hyponatremia but normal kidney function as well as hyperglycemia. He also has an elevated alk phos. ESR was ordered and came back at 85, lactic acid was within normal limi ts. Will continue antibiotics as previously stated. Ordered morphine initially earlier this morning for pain control but he is not achieved a decent amount of comfort from this and so we will switch him over to Dilaudid as he was receiving in the ER. Patient had a blood sugar of 299 upon presentation, ordered sliding scale insulin as well as Accu-Cheks q. ACHS. We will consult with podiatry. Patient will need an MRI of his left lower extremity. Patient will likely need transmetatarsal resection of his forefoot but will wait to see what the MRI shows and what Dr. Wylie feels is appropriate. We will appreciate her help with this case. Blood pressures are mildly elevated at times when he has been in pain but otherwise is well within normal limits. The rest of his vital signs are stable. Patient started on consistent carb diet. Patient will be made n.p.o. Monday. Patient will notify nurse any questions or concerns. Nurse will call questions or concerns. - Assessment/Plan (1) Acute osteomyelitis of toe of left foot Problem: Acute (2) Poorly controlled diabetes mellitus Problem: Acute (3) Hypertension Problem: Chronic (4) BMI 40.0-44.9, adult Problem: Acute
[2020-07-18] MEDS ORDERED: INSULIN LISPRO 100 UNITS/ML VIAL ONE (02:37)
[2020-07-18] MEDS: INSULIN LISPRO 100 UNITS/ML VIAL SC SCH ×5 (02:44→20:29)
[2020-07-18] MEDS: MORPHINE SULFATE 2 MG/ML DISP.SYRIN IV PRN ×9 (02:46→23:30)
[2020-07-18] MEDS: CLINDAMYCIN IN 0.9 % SOD CHLOR 600 MG/50 ML BAG IV SCH ×3 (07:24→19:36)
[2020-07-18] MEDS: PROPRANOLOL HCL 20 MG TABLET PO SCH ×3 (08:10→17:14)
[2020-07-18] MEDS: GABAPENTIN 400 MG CAPSULE PO SCH ×4 (08:11→20:11)
[2020-07-18] MEDS: LISINOPRIL 10 MG TABLET PO SCH (08:11)
[2020-07-18] MEDS: metFORMIN HCL 500 MG TABLET PO SCH ×2 (08:11→17:16)
[2020-07-18] MEDS: INSULIN GLARGINE,HUM.REC.ANLOG 100 UNITS/ML VIAL SC SCH (08:12)
[2020-07-18] MEDS: LORazepam 1 MG TABLET PO PRN ×3 (08:16→21:26)
[2020-07-18] MEDS: ARIPIPRAZOLE 2 MG PO SCH ×2 (08:21→16:55)
[2020-07-18 08:22] LABS: Hematocrit 37.4 % (42.0-52.0); Hemoglobin 11.6 gm/dL (13.5-18.0); Mean Cell Volume 91.4 fl (78-100); Mean Corpuscular Hemoglobin 28.4 pg (27-31); Mean Platelet Volume 11.6 fl (8-11.3); Neutrophil % 76.9 % (42-75.0); Platelet Count 256 K/mm3 (150-450); Red Blood Count 4.09 M/mm3 (4.7-6.0); Red Cell Distribution Width 12.3 % (11.5-14.0); White Blood Count 14.3 K/mm3 (4.0-10.5)
[2020-07-18 08:55] LABS: Albumin * 2.8 gm/dl (3.4-5.0); Anion Gap 11.6 mmol/L (6.8-13.8); BUN/Creatinine Ratio 8.3 (9.0-21.6); Bilirubin, Total 0.7 mg/dL (0.0-1.1); Ca. Corrected For Albumin 9.6 mg/dL (8.4-10.2); Carbon Dioxide 24.6 mmol/L (24-32.6); Potassium 4.2 mmol/L (3.4-4.6); Total Protein 7.2 gm/dL (6.2-8.2)
[2020-07-18] MEDS: HYDROmorphone HCL 1 MG/ML DISP.SYRIN IV PRN ×3 (11:55→20:19)
[2020-07-18] MEDS: LEVOFLOXACIN IN DEXTROSE 5 % 750 MG/150 ML BAG IV SCH (19:36)
[2020-07-18] MEDS: traZODone HCL 50 MG TABLET PO SCH (20:12)
[2020-07-18] MEDS: AMITRIPTYLINE HCL 50 MG TABLET PO SCH (20:13)
[2020-07-18] MEDS: ACETAMINOPHEN 500 MG TABLET PO PRN (23:29)
[2020-07-19] MEDS: HYDROmorphone HCL 1 MG/ML DISP.SYRIN IV PRN ×9 (01:33→22:32)
[2020-07-19] MEDS: CLINDAMYCIN IN 0.9 % SOD CHLOR 600 MG/50 ML BAG IV SCH ×3 (04:17→19:39)
[2020-07-19] MEDS: LORazepam 1 MG TABLET PO PRN ×4 (04:39→23:05)
[2020-07-19] MEDS: MORPHINE SULFATE 2 MG/ML DISP.SYRIN IV PRN ×2 (04:40→07:23)
[2020-07-19 05:57] LABS: Hematocrit 34.3 % (42.0-52.0); Hemoglobin 10.5 gm/dL (13.5-18.0); Mean Corpuscular Hemoglobin 28.8 pg (27-31); Mean Corpuscular Hgb Conc 30.6 g/dl (32-36); Mean Platelet Volume 11.4 fl (8-11.3); Platelet Count 277 K/mm3 (150-450); Red Blood Count 3.65 M/mm3 (4.7-6.0); Red Cell Distribution Width 12.5 % (11.5-14.0); White Blood Count 14.7 K/mm3 (4.0-10.5)
[2020-07-19 06:19] LABS: Albumin * 2.4 gm/dl (3.4-5.0); Anion Gap 12.2 mmol/L (6.8-13.8); BUN/Creatinine Ratio 9.6 (9.0-21.6); Bilirubin, Total 0.4 mg/dL (0.0-1.1); Ca. Corrected For Albumin 9.5 mg/dL (8.4-10.2); Calcium * 8.5 mg/dL (7.9-10.9); Carbon Dioxide 22.7 mmol/L (24-32.6); Potassium 4.9 mmol/L (3.4-4.6); Total Protein 6.6 gm/dL (6.2-8.2)
[2020-07-19 06:41] LABS: Total Cells Counted 100
[2020-07-19 06:47] LABS: Eosinophil 1 % (0-3); Immature Granulocyte 1 (0-1); Lymphocyte 20 % (20-51); Monocyte 7 % (0-9); Neutrophil 71 % (42-75); Neutrophil # 10.4 K/mm3 (1.3-6.0); Platelet Estimate Normal (NORMAL); RBC Morphology Normal (NORMAL)
[2020-07-19] MEDS: INSULIN LISPRO 100 UNITS/ML VIAL SC SCH ×4 (07:30→20:15)
[2020-07-19] MEDS: GABAPENTIN 400 MG CAPSULE PO SCH ×4 (09:28→20:10)
[2020-07-19] MEDS: metFORMIN HCL 500 MG TABLET PO SCH ×2 (09:28→16:55)
[2020-07-19] MEDS: LISINOPRIL 10 MG TABLET PO SCH (09:31)
[2020-07-19] MEDS: ARIPIPRAZOLE 2 MG PO SCH (09:31)
[2020-07-19] MEDS: DESVENLAFAXINE ER 100 MG PO SCH (09:31)
[2020-07-19] MEDS: PROPRANOLOL HCL 20 MG TABLET PO SCH ×3 (09:31→16:56)
[2020-07-19] MEDS: INSULIN GLARGINE,HUM.REC.ANLOG 100 UNITS/ML VIAL SC SCH (09:32)
--- NOTE | 2020-07-19 12:06 | PN ---
Subjective - Date and Time Seen Date: 07/19/20 Time: 11:59 Subjective Narrative: Patient is currently resting in bed, no acute events overnight. White count relatively unchanged. Cultures of the wound came back showing group G strep which should be susceptible to clindamycin. Since his white count did not worsen overnight, will continue current treatment plan with antibiotics. Podiatry consult has been placed and he will be evaluated by them tomorrow after is able to get his MRI of his left foot. Patient's pain appears to be stable based upon patient presentation the patient states that it is constantly in 8 or 9 even though he appears to be more comfortable in this. Patient is on Dilaudid 1 mg every 4 hours with morphine breakthrough every 2 hours. Patient's vital signs are also stable he has been afebrile since being here. Patient's wound is dressed with a clean dry dressing which will be changed daily. Patient's blood sugars are also elevated and will likely need to increase his sliding scale from moderate to high. Objective - Review of Systems Generalized/Overall Review: Denies: Weakness, Chills, Fever EENTM: Reports: No Symptoms Reported Respiratory: Reports: No Symptoms Reported Cardiac: Reports: No Symptoms Reported Abdominal: Reports: No Symptoms Reported Genitourinary Symptoms: Reports: No Symptoms Reported Musculoskeletal Complaints: Reports: Joint Pain, Other - Left foot pain Neurological: Reports: No Symptoms Reported Skin: Reports: Other - Cellulitic infection around the infected toe up into the forefoot Endocrine: Reports: No Symptoms Reported - Vitals Vitals: Last Vital Signs Temp 36.5 C 07/19/20 09:29 Pulse 75 07/19/20 09:31 Resp 16 07/19/20 09:29 BP 114/63 07/19/20 09:31 Pulse Ox 96 07/19/20 09:29 - Abnormal Lab Findings Abnormal Lab Findings: Abnormal Lab Results 07/19/20 07/19/20 Range/Units 05:45 05:45 WBC 14.7 H (4.0-10.5) K/mm3 RBC 3.65 L (4.7-6.0) M/mm3 Hgb 10.5 L (13.5-18.0) gm/dL Hct 34.3 L (42.0-52.0) % MCHC 30.6 L (32-36) g/dl MPV 11.4 H (8-11.3) fl Neutrophils # (Manual) 10.4 H (1.3-6.0) K/mm3 Potassium 4.9 H (3.4-4.6) mmol/L Carbon Dioxide 22.7 L (24-32.6) mmol/L Random Glucose 255 H (70-110) mg/dL Alkaline Phosphatase 262 H (50-170) U/L Albumin 2.4 L (3.4-5.0) gm/dl - Exam Constitutional: Present: Alert, Oriented x3, Cooperative, Obese Respiratory: Present: lungs clear, normal breath sounds Cardiovascular/Chest: Present: regular rate, rhythm, no murmur Abdomen: Present: soft, nontender, nondistended Extremity: Present: other - Necrotic distal second toe with surrounding cellulitic infection tracing up into his forefoot. Roughly 1 inch bulla on the dorsum of his foot with clear fluid, TTP Skin Exam: Present: normal color, warm/dry, other - See above Appearance: Present: appropriate appearance, appropriate insight Eye contact: Present: cooperative, good eye contact Assessment/Plan Plan Narrative: 29-year-old with poorly controlled insulin-dependent diabetes here for underlying osteomyelitis of his distal phalanx on his second toe of his left foot. Currently on Levaquin and clindamycin for his antibiotic IV regimen. Again his white count is stable at this time and is cultures come back growing group C strep which should be sensitive to these medications. If his white count changes for the worse then we will switch him to clindamycin and Zosyn which is what I initially would have used except he was started on these antibiotics in the ER and do not want to change his antibiotics unnecessarily if needed. His pain is not well controlled per the patient so we will adjust his Dilaudid from 1 mg every 4 to 1 mg every 2. Will discontinue IV morphine for breakthrough pain. Patient sugars are not well controlled in the mid to upper 200s. We will change his moderate sliding scale to high sliding scale. SCDs ordered for DVT prophylaxis. Podiatry has been consulted and will evaluate him tomorrow. Will order MRI today which will likely be done tomorrow morning. Unsure of how aggressive the surgery will need to be whether he can get away with just having a second toe amputation or if he has that actually have a complete metatarsal transection but will know more once the MRI is ordered. Again we will leave this up to Dr. Wylie will make this determination based upon his clinical picture and his imaging. Appreciate her help on this case. Otherwise patient is currently stable at this time, vital signs been stable. He has been afebrile. Continue with daily dressing changes. 1 hour critical care time spent with patient today upon examination, making referrals, changing medications and treatment plan, and ordering imaging. - Problems/Diagnosis (1) Acute osteomyelitis of toe of left foot Problem: Acute (2) Poorly controlled diabetes mellitus Problem: Acute (3) Hypertension Problem: Chronic (4) BMI 40.0-44.9, adult Problem: Acute
[2020-07-19] MEDS: ACETAMINOPHEN 500 MG TABLET PO PRN (14:10)
[2020-07-19] MEDS: traZODone HCL 50 MG TABLET PO SCH (20:08)
[2020-07-19] MEDS: AMITRIPTYLINE HCL 50 MG TABLET PO SCH (20:09)
[2020-07-19] MEDS: LEVOFLOXACIN IN DEXTROSE 5 % 750 MG/150 ML BAG IV SCH (20:30)
[2020-07-20] MEDS: HYDROmorphone HCL 1 MG/ML DISP.SYRIN IV PRN ×10 (01:35→21:31)
[2020-07-20] MEDS: CLINDAMYCIN IN 0.9 % SOD CHLOR 600 MG/50 ML BAG IV SCH ×3 (04:40→21:28)
[2020-07-20] MEDS: LORazepam 1 MG TABLET PO PRN ×3 (06:46→21:29)
[2020-07-20 06:51] LABS: Hematocrit 34.9 % (42.0-52.0); Hemoglobin 10.8 gm/dL (13.5-18.0); Mean Cell Volume 93.3 fl (78-100); Mean Corpuscular Hemoglobin 28.9 pg (27-31); Mean Corpuscular Hgb Conc 30.9 g/dl (32-36); Mean Platelet Volume 11.4 fl (8-11.3); Neutrophil # 9.7 K/mm3 (1.3-6.0); Neutrophil % 71.4 % (42-75.0); Platelet Count 316 K/mm3 (150-450); Red Blood Count 3.74 M/mm3 (4.7-6.0); Red Cell Distribution Width 12.4 % (11.5-14.0); White Blood Count 13.6 K/mm3 (4.0-10.5)
[2020-07-20 07:05] LABS: Albumin * 2.4 gm/dl (3.4-5.0); Anion Gap 13.7 mmol/L (6.8-13.8); BUN/Creatinine Ratio 8.3 (9.0-21.6); Bilirubin, Total 0.3 mg/dL (0.0-1.1); Ca. Corrected For Albumin 9.9 mg/dL (8.4-10.2); Calcium * 8.9 mg/dL (7.9-10.9); Potassium 4.7 mmol/L (3.4-4.6); Total Protein 6.9 gm/dL (6.2-8.2)
[2020-07-20] MEDS: INSULIN LISPRO 100 UNITS/ML VIAL SC SCH ×4 (07:12→22:13)
[2020-07-20] MEDS: GABAPENTIN 400 MG CAPSULE PO SCH ×4 (08:05→21:37)
[2020-07-20] MEDS: DESVENLAFAXINE ER 100 MG PO SCH (08:06)
[2020-07-20] MEDS: LISINOPRIL 10 MG TABLET PO SCH (08:06)
[2020-07-20] MEDS: PROPRANOLOL HCL 20 MG TABLET PO SCH ×3 (08:06→17:26)
[2020-07-20] MEDS: ARIPIPRAZOLE 2 MG PO SCH (08:06)
[2020-07-20] MEDS: metFORMIN HCL 500 MG TABLET PO SCH ×2 (08:06→17:27)
[2020-07-20] MEDS: INSULIN GLARGINE,HUM.REC.ANLOG 100 UNITS/ML VIAL SC SCH (08:07)
--- NOTE | 2020-07-20 16:46 | CONS ---
- Reason for consultation (1) Acute osteomyelitis of toe of left foot Date of Service: 07/20/20 HPI - General Date of Service: 07/20/20 Narrative: Patient is seen today at bedside resting. He is being seen for a necrotic, gangrenous ulceration to the tip of his left 2nd toe as well as concerns of osteomyelitis in the toe. States that up until last Monday, he had no concerns with the toe. He then started noticing some redness and swelling developing about the toe. When he removed his socks on Monday, he states it looked like his toe had exploded out the end. He had a signficant amount of purulent drainage, along with redness and pain. He also was running a fever of around 100. He was brought to the ER for further evaluation. Xrays were concerning for osteomyelitis of at least the distal phalanx in the toe. He was admitted for IV antibiotics and possible surgical care. MRI was done this morning confirming osteo of the distal and middle phalanges of the toe, with concerns of possible early osteo in the proximal phalanx. I was consulted for surgical management. He reports continued pain in the toe. Denies any current nausea, vomiting, fevers, or chills. His WBC has been trending down since admission and start of IV antibiotics. He is worried he is going to have to have his foot amputated. Source: patient, family Exam Limitations: no limitations - History of Present Illness Allergies/Adverse Reactions: Allergies quetiapine [From Seroquel] Adverse Reaction (Unknown, Verified 12/13/19 09:55) delirium Home Medications: Home Medications Medication Instructions Recorded Last Taken Cholecalciferol [Vitamin D] 10,000 unit PO Q7D 11/22/19 Unknown lorazepam 2 mg tablet 2 mg PO Q6H PRN #60 tab 12/13/19 Unknown propranolol 20 mg tablet 20 mg PO TID #90 tab 12/13/19 Unknown metformin 500 mg tablet 500 mg PO BID #60 tab 06/01/20 Unknown Aripiprazole 2 mg PO DAILY 06/10/20 Unknown Desvenlafaxine Fumarate 100 mg PO HS 06/10/20 Unknown [Desvenlafaxine Fumarate ER] Insulin Glargine,Hum.rec.anlog 24 unit SUBCUT DAILY 06/10/20 Unknown [Basaglar KwikPen U-100 Insulin] Melatonin 3,000 mcg PO HS PRN 06/10/20 Unknown traZODone HCL [Trazodone HCl] 200 mg PO HS 06/10/20 Unknown tramadol 50 mg tablet 100 mg PO Q6H #24 tab 07/13/20 Unknown Amitriptyline HCl [Elavil] 50 mg PO HS 07/17/20 Unknown Aspirin [Aspirin EC] 325 mg PO DAILY 07/17/20 Unknown Gabapentin 800 mg PO QID 07/17/20 Unknown Lisinopril [Prinivil] 10 mg PO DAILY 07/17/20 Unknown Garner Carbonate [Garner 600 mg PO QPM 07/18/20 Unknown Carbonate ER] Procedures Application of splint (01/20/01) Other septoplasty (04/27/06) Other turbinectomy (04/27/06) Removal of superficial foreign body from eye without incision (09/27/99) Medications - Medications Current Medications: Current Medications Acetaminophen (Acetaminophen 500 Mg Tablet) 1,000 mg PO Q8H PRN PRN Reason: Mild pain (pain scale 1-3) Stop: 08/17/20 05:01 Last Admin: 07/19/20 14:10 Dose: 1,000 mg Documented by: Amitriptyline HCl (Amitriptyline Hcl 50 Mg Tablet) 50 mg PO HS SHAYAN Stop: 08/17/20 21:01 Last Admin: 07/19/20 20:09 Dose: 50 mg Documented by: Gabapentin (Gabapentin 400 Mg Capsule) 800 mg PO QID SHAYAN Stop: 08/17/20 09:01 Last Admin: 07/20/20 12:14 Dose: 800 mg Documented by: Hydromorphone HCl (Hydromorphone Hcl 1 Mg/Ml Disp.Syrin) 1 mg IV Q2H PRN PRN Reason: Pain Stop: 08/17/20 11:42 Last Admin: 07/20/20 15:16 Dose: 1 mg Documented by: Clindamycin/Sodium Chloride (Cleocin) 600 mg in 50 mls @ 50 mls/hr IV Q8H [facility] Stop: 08/17/20 04:31 Last Admin: 07/20/20 12:11 Dose: 50 mls/hr Documented by: Levofloxacin/Dextrose (Levaquin) 750 mg in 150 mls @ 100 mls/hr IV Q24H [facility], [facility]; Protocol Stop: 08/17/20 20:31 Last Infusion: 07/19/20 22:00 Dose: Infused Documented by: Insulin Glargine (Insulin Glargine,Hum.Rec.Anlog 100 Units/Ml Vial) 24 units SC DAILY [facility]1983 Stop: 08/17/20 09:01 Last Admin: 07/20/20 08:07 Dose: 24 units Documented by: Insulin Human Lispro (Insulin Lispro 100 Units/Ml Vial) 0 units SC [facility], [facility]; Protocol Stop: 08/17/20 07:01 Last Admin: 07/20/20 12:07 Dose: 10 units Documented by: Lisinopril (Lisinopril 10 Mg Tablet) 10 mg PO DAILY [facility]1983 Stop: 08/17/20 09:01 Last Admin: 07/20/20 08:06 Dose: 10 mg Documented by: Lorazepam (Lorazepam 1 Mg Tablet) 2 mg PO Q6H PRN PRN Reason: Anxiety Stop: 08/17/20 02:38 Last Admin: 07/20/20 15:16 Dose: 2 mg Documented by: Metformin HCl (Metformin Hcl 500 Mg Tablet) 500 mg PO BIDWM [facility] Stop: 08/17/20 09:01 Last Admin: 07/20/20 08:06 Dose: 500 mg Documented by: (Aripiprazole 2 Mg (Tablet)) 2 mg PO DAILY [facility] Stop: 08/17/20 09:01 Last Admin: 07/20/20 08:06 Dose: 2 mg Documented by: (Garner Carbonate [ Garner Carbonate Er ] 300 Mg Tablet Extended 600 mg PO QPM [facility] Stop: 08/17/20 17:01 Last Admin: 07/19/20 16:55 Dose: 600 mg Documented by: Desvenlafaxine Er (100 Mg) 1 dose PO DAILY [facility] Stop: 08/17/20 17:16 Last Admin: 07/20/20 08:06 Dose: 1 dose Documented by: Propranolol HCl (Propranolol Hcl 20 Mg Tablet) 20 mg PO TID [facility] Stop: 08/17/20 09:01 Last Admin: 07/20/20 12:14 Dose: 20 mg Documented by: Trazodone HCl (Trazodone Hcl 50 Mg Tablet) 200 mg PO HS [facility] Stop: 08/17/20 21:01 Last Admin: 07/19/20 20:08 Dose: 200 mg Documented by: Review of Systems - Review of Systems Generalized/Overall Review: Absent: Weakness, Chills, Fever, Fatigue Respiratory: Absent: Shortness of Breath Cardiac: Present: Edema Abdominal: Absent: Nausea, Vomiting, Diarrhea Musculoskeletal: Present: Other - left 2nd toe pain Skin: Present: Other - erythema left foot; ulcer left 2nd toe Endocrine: Absent: Intolerance to Cold, Intolerance to Heat, Increased Hunger, Increased Thirst Physical Examination - Exam Narrative: Ulceration encompassing the entire distal aspect of the left 2nd toe measuring approximately 2 x 2 cm. Unable to accurately measure depth due to pain. Base is covered with significant amount of black/carranza necrotic, foul smelling tissue. Surrounding tissue is erythematous, with erythema that extends from the toe in to the dorsum of the foot to the level of the hindfoot. Erythema is most significant within the toe to the level of the MtPJ. This skin has increase in temperature compared to surrounding skin. There is a moderate amount of sero- purulent drainage, strong foul odor is present. Unable to assess for bone exposure due to pain. Great and 3rd toes healthy, pink in appearance. No open sores, no redness or swelling. MRI reviewed, and agree with report. Osteo of middle and distal phalanx of left 2nd toe, concerns for possible early osteo in the proximal phalanx of the toe. Vital Signs: Vital Signs - Last Taken Temp 36.8 C 07/20/20 14:04 Pulse 74 07/20/20 14:04 Resp 24 H 07/20/20 14:04 BP 124/67 07/20/20 14:04 Pulse Ox 98 07/20/20 14:04 O2 Oxygen Delivery Method Room Air Constitutional: Present: Alert, Oriented x3, Cooperative Peripheral Pulses: dorsalis-pedis (L): 2+ - PT pulse 2+ Extremity: Present: normal capillary refill, pedal edema Skin Exam: Present: other - see details above Appearance: Present: appropriate appearance Eye contact: Present: cooperative - Results and Findings: Lab/Microbiology results last 24 hrs: Abnormal/Pending Laboratory Last 24 HRS 07/20/20 07/20/20 06:35 06:35 WBC 13.6 H RBC 3.74 L Hgb 10.8 L Hct 34.9 L MCHC 30.9 L MPV 11.4 H Immature Gran % (Auto) 0.70 H Immature Gran # (Auto) 0.10 H Lymphocytes % 19.8 L Neutrophils # 9.7 H Potassium 4.7 H BUN/Creatinine Ratio 8.3 L Random Glucose 171 H D Alkaline Phosphatase 325 H Albumin 2.4 L Culture 07/17/20 21:10 Blood Culture - Preliminary Blood NO GROWTH AFTER 48 HOURS 07/17/20 21:00 Blood Culture - Preliminary Blood NO GROWTH AFTER 48 HOURS - Assessments/Findings (1) Acute osteomyelitis of toe of left foot Diagnosis(s): Discussed with patient exam and MRI findings. MRI with concerns of infection in the proximal phalanx, and even though that is not where the wound is located, it cannot be ruled out. It is my recommendation that he undergo amputation of the entire 2nd toe to remove any bone that has any concerns for infection per the MRI exam. He is in agreement with this plan, and is happy that he does not have to have a more aggressive amputation. Discussed the surgery in detail, including risks, benefits, anesthesia, and post-operative care. Advised that this does not guarantee that he will not develop infection following the surgery, there is always a risk of infection with surgery, especially being diabetic. He states understanding of this. He has already undergone COVID testing, so this does not need to be ordered pre-op. I am unable to perform surgery tomorrow as I am unavailable, and he has already eaten today. He is stable at this time, remains afebrile, and WBC is trending down. Will plan for surgery on 07/22/20, amputation of the left 2nd toe. Advised that if his condition begins to decline at any time, can move this surgery up. Will consent for amputation of the left second toe. He will be placed NPO after midnight tomorrow night. Will continue with current daily dressing changes, and a new dressing of gauze, kerlix, and tape is applied today. Will continue with current antibiotics and will adjust as needed following surgical cultures. Will discuss discharge home following surgery, but plan for at least one overnight in the hospital following his surgery. Will continue to follow closely in his care. Problem: Acute
[2020-07-20] MEDS: AMITRIPTYLINE HCL 50 MG TABLET PO SCH (21:30)
[2020-07-20] MEDS: traZODone HCL 50 MG TABLET PO SCH (21:30)
--- NOTE | 2020-07-20 21:42 | PN ---
Subjective - Date and Time Seen Date: 07/20/20 Time: 21:37 Subjective Narrative: Patient seen this evening, is very comfortable in bed at this time. Pain better controlled that has been since been here. White count continues to downtrend on current antibiotics. Vital signs are stable and he feels better. Dr. Wylie was in to see him and plan is for him to go back for amputation of his second toe on the left. Patient is happy that a more aggressive amputation is not needed at this time as previously discussed with him. He will need to be made n.p.o. tomorrow night which we will order. Otherwise he feels well and there were no acute events over last 24 hours. Objective - Review of Systems Generalized/Overall Review: Denies: Weakness, Chills, Fever EENTM: Reports: No Symptoms Reported Respiratory: Reports: No Symptoms Reported Cardiac: Reports: No Symptoms Reported Abdominal: Reports: No Symptoms Reported Genitourinary Symptoms: Reports: No Symptoms Reported Musculoskeletal Complaints: Reports: Other - Second left toe pain with infection Neurological: Reports: No Symptoms Reported Skin: Reports: Other - Pain of left second toe with redness and drainage, significant infection Endocrine: Reports: No Symptoms Reported - Vitals Vitals: Last Vital Signs Temp 37.2 C 07/20/20 18:34 Pulse 75 07/20/20 18:34 Resp 22 H 07/20/20 18:34 BP 120/64 07/20/20 18:34 Pulse Ox 98 07/20/20 18:34 - Abnormal Lab Findings Abnormal Lab Findings: Abnormal Lab Results 07/20/20 07/20/20 Range/Units 06:35 06:35 WBC 13.6 H (4.0-10.5) K/mm3 RBC 3.74 L (4.7-6.0) M/mm3 Hgb 10.8 L (13.5-18.0) gm/dL Hct 34.9 L (42.0-52.0) % MCHC 30.9 L (32-36) g/dl MPV 11.4 H (8-11.3) fl Immature Gran % (Auto) 0.70 H (0.001-0.429) % Immature Gran # (Auto) 0.10 H (0.000-0.0310) K/mm3 Lymphocytes % 19.8 L (20-51) % Neutrophils # 9.7 H (1.3-6.0) K/mm3 Potassium 4.7 H (3.4-4.6) mmol/L BUN/Creatinine Ratio 8.3 L (9.0-21.6) Random Glucose 171 H D (70-110) mg/dL Alkaline Phosphatase 325 H (50-170) U/L Albumin 2.4 L (3.4-5.0) gm/dl - Exam Constitutional: Present: Alert, Oriented x3, Cooperative ENT Exam: Present: hearing grossly normal Neck: Present: non-tender, supple Respiratory: Present: lungs clear, normal breath sounds Cardiovascular/Chest: Present: regular rate, rhythm, no murmur Abdomen: Present: soft, nontender, nondistended Extremity: Present: non-tender, no calf tenderness Skin Exam: Present: other - Necrotic tissue over distal aspect of second left toe with surrounding cellulitis and purulent drainage, tender to palpation Neurologic: Present: alert, normal mood/affect, oriented x 3 Appearance: Present: appropriate appearance, appropriate insight Eye contact: Present: cooperative, good eye contact Thoughts: Present: normal thought pattern, normal mood /affect Assessment/Plan Plan Narrative: Patient here for osteomyelitis of the second toe. MRI confirmed the infection has not spread past his middle phalanx but it started moving just proximal phalanx. Dr. Wylie was consulted who plans to take him back for amputation of second toe on the left on Saturday 07/22. We will continue antibiotics as his white count is improving and his pain is also improving. No changes to his pain management at this time as he is doing well with it. Blood sugars much better controlled with a more aggressive sliding scale insulin. We will continue to monitor. SCDs for DVT prophylaxis ordered. Repeat CBC and CMP in the morning. Overall is doing well and is happy with current treatment plan. Nurse will call questions or concerns. - Problems/Diagnosis (1) Acute osteomyelitis of toe of left foot Problem: Acute (2) Poorly controlled diabetes mellitus Problem: Acute (3) Hypertension Problem: Chronic (4) BMI 40.0-44.9, adult Problem: Acute
[2020-07-20] MEDS: LEVOFLOXACIN IN DEXTROSE 5 % 750 MG/150 ML BAG IV SCH (22:29)
[2020-07-21] MEDS: HYDROmorphone HCL 1 MG/ML DISP.SYRIN IV PRN ×10 (00:17→21:21)
[2020-07-21] MEDS: CLINDAMYCIN IN 0.9 % SOD CHLOR 600 MG/50 ML BAG IV SCH ×3 (04:43→20:05)
[2020-07-21 06:28] LABS: Hematocrit 37.1 % (42.0-52.0); Hemoglobin 11.4 gm/dL (13.5-18.0); Mean Cell Volume 92.5 fl (78-100); Mean Corpuscular Hemoglobin 28.4 pg (27-31); Mean Corpuscular Hgb Conc 30.7 g/dl (32-36); Mean Platelet Volume 10.9 fl (8-11.3); Neutrophil # 8.6 K/mm3 (1.3-6.0); Neutrophil % 66.8 % (42-75.0); Platelet Count 364 K/mm3 (150-450); Red Blood Count 4.01 M/mm3 (4.7-6.0); Red Cell Distribution Width 12.3 % (11.5-14.0); White Blood Count 12.9 K/mm3 (4.0-10.5)
[2020-07-21 06:42] LABS: Albumin * 2.6 gm/dl (3.4-5.0); Anion Gap 11.9 mmol/L (6.8-13.8); BUN/Creatinine Ratio 10.8 (9.0-21.6); Bilirubin, Total 0.3 mg/dL (0.0-1.1); Ca. Corrected For Albumin 10.1 mg/dL (8.4-10.2); Calcium * 9.3 mg/dL (7.9-10.9); Carbon Dioxide 24.8 mmol/L (24-32.6); Potassium 4.7 mmol/L (3.4-4.6); Total Protein 7.2 gm/dL (6.2-8.2)
[2020-07-21] MEDS: INSULIN LISPRO 100 UNITS/ML VIAL SC SCH ×4 (07:28→20:10)
[2020-07-21] MEDS: GABAPENTIN 400 MG CAPSULE PO SCH ×4 (08:25→20:09)
[2020-07-21] MEDS: LISINOPRIL 10 MG TABLET PO SCH (08:26)
[2020-07-21] MEDS: DESVENLAFAXINE ER 100 MG PO SCH (08:26)
[2020-07-21] MEDS: INSULIN GLARGINE,HUM.REC.ANLOG 100 UNITS/ML VIAL SC SCH (08:26)
[2020-07-21] MEDS: ARIPIPRAZOLE 2 MG PO SCH (08:26)
[2020-07-21] MEDS: PROPRANOLOL HCL 20 MG TABLET PO SCH ×3 (08:26→17:06)
[2020-07-21] MEDS: metFORMIN HCL 500 MG TABLET PO SCH ×2 (08:26→17:06)
--- NOTE | 2020-07-21 09:28 | PN ---
Subjective - Date and Time Seen Date: 07/21/20 Time: 09:10 Subjective Narrative: Patient reports feeling ok, other than his pain. Dilaudid is helping dull the pain. No new concerns. Is eating and drinking well, and walks with a walker. Objective - Review of Systems Generalized/Overall Review: Denies: Fever Respiratory: Denies: Shortness of Breath Abdominal: Reports: No Symptoms Reported Genitourinary Symptoms: Reports: No Symptoms Reported Musculoskeletal Complaints: Reports: Other - left foot pain - Vitals Vitals: Last Vital Signs Temp 36.9 C 07/21/20 07:05 Pulse 67 07/21/20 08:26 Resp 16 07/21/20 07:05 BP 118/66 07/21/20 08:26 Pulse Ox 96 07/21/20 07:05 - Abnormal Lab Findings Abnormal Lab Findings: Abnormal Lab Results 07/21/20 07/21/20 Range/Units 06:23 06:23 WBC 12.9 H (4.0-10.5) K/mm3 RBC 4.01 L (4.7-6.0) M/mm3 Hgb 11.4 L (13.5-18.0) gm/dL Hct 37.1 L (42.0-52.0) % MCHC 30.7 L (32-36) g/dl Immature Gran % (Auto) 1.00 H (0.001-0.429) % Immature Gran # (Auto) 0.13 H (0.000-0.0310) K/mm3 Eosinophils % 3.3 H (0.0-3.0) % Neutrophils # 8.6 H (1.3-6.0) K/mm3 Potassium 4.7 H (3.4-4.6) mmol/L Random Glucose 157 H (70-110) mg/dL Alkaline Phosphatase 331 H (50-170) U/L Albumin 2.6 L (3.4-5.0) gm/dl - Exam Constitutional: Present: Alert, Cooperative, No distress, Morbidly obese Respiratory: Present: lungs clear, normal breath sounds Cardiovascular/Chest: Present: regular rate, rhythm Abdomen: Present: obese Extremity: Present: other - left foot wrapped in kerlex to the ankle. small amount of strikethrough noticed in the region of the distal left 2nd toe. no erythema of visible left lower leg. Absent: lower extremity edema Eye contact: Present: cooperative, good eye contact Assessment/Plan Plan Narrative: No med changes needed today. continue clindamycin for antibiotic, and will add a probiotic. continue pain control with IV dilaudid for now. the amputation may itself help alleviate his pain, and may be able to switch to po pain meds after surgery tomorrow. Glucose is in the 100's today with high dose SSI. - Problems/Diagnosis (1) Acute osteomyelitis of toe of left foot Problem: Acute (2) Diabetes mellitus with hyperglycemia Problem: Chronic Qualifiers: (3) Fibromyalgia Problem: Chronic (4) Bipolar I disorder, moderate, current or most recent episode depressed, with anxious distress Problem: Chronic (5) Anxiety Problem: Chronic (6) BMI 40.0-44.9, adult Problem: Chronic (7) Alcohol abuse Problem: Chronic
[2020-07-21] MEDS: LORazepam 1 MG TABLET PO PRN ×2 (10:08→20:07)
--- NOTE | 2020-07-21 17:07 | PN ---
Subjective - Date and Time Seen Date: 07/21/20 Time: 17:06 Subjective Narrative: Patient is seen today resting comfortably in bed. States his pain is being well controlled with current pain medications. Dressing is clean, dry, and intact to the left foot with a small amount of strike-through drainage since my visit yesterday afternoon. He is ready for amputation of this infected toe, as discussed yesterday. He denies any questions regarding the surgery, he is just ready to have it done. Denies any changes since yesterday. His WBC continues to trend down, and he remains afebrile. No other concerns. Objective - Review of Systems Generalized/Overall Review: Denies: Chills, Fever, Fatigue Cardiac: Reports: Edema - improving Abdominal: Denies: Nausea, Vomiting, Diarrhea Musculoskeletal Complaints: Reports: Other - left 2nd toe pain Skin: Reports: Other - left 2nd toe ulceration with infection - Vitals Vitals: Last Vital Signs Temp 36.4 C 07/21/20 13:45 Pulse 67 07/21/20 13:45 Resp 20 07/21/20 13:45 BP 123/59 07/21/20 13:45 Pulse Ox 97 07/21/20 13:45 - Abnormal Lab Findings Abnormal Lab Findings: Abnormal Lab Results 07/21/20 07/21/20 Range/Units 06:23 06:23 WBC 12.9 H (4.0-10.5) K/mm3 RBC 4.01 L (4.7-6.0) M/mm3 Hgb 11.4 L (13.5-18.0) gm/dL Hct 37.1 L (42.0-52.0) % MCHC 30.7 L (32-36) g/dl Immature Gran % (Auto) 1.00 H (0.001-0.429) % Immature Gran # (Auto) 0.13 H (0.000-0.0310) K/mm3 Eosinophils % 3.3 H (0.0-3.0) % Neutrophils # 8.6 H (1.3-6.0) K/mm3 Potassium 4.7 H (3.4-4.6) mmol/L Random Glucose 157 H (70-110) mg/dL Alkaline Phosphatase 331 H (50-170) U/L Albumin 2.6 L (3.4-5.0) gm/dl - Exam Exam Narrative: Ulceration encompassing the entire distal aspect of the left 2nd toe unchanged, measuring approximately 2 x 2 cm. Unable to accurately measure depth due to pain. Base is covered with significant amount of black/carranza necrotic, foul smelling tissue. Surrounding tissue is erythematous. Erythema is most significant within the toe to the level of the MtPJ. This skin has increase in temperature compared to surrounding skin. The erythema present about the dorsum of the foot with significant improvement, near resolved today. There is a moderate amount of sero-purulent drainage, strong foul odor is present. Unable to assess for bone exposure due to pain. Great and 3rd toes healthy, pink in appearance. No open sores, no redness or swelling. Constitutional: Present: Alert, Oriented x3, Cooperative Cardiovascular/Chest: Present: normal peripheral pulses Extremity: Present: normal capillary refill, pedal edema - improved, now with visible skin lines Skin Exam: Present: other - see details above Appearance: Present: appropriate appearance Eye contact: Present: cooperative Thoughts: Present: normal thought pattern Assessment/Plan Plan Narrative: Again discussed with patient exam and MRI findings, and treatment. He remains in agreement with amputation of the left 2nd toe. Discussed the surgery in detail, including risks, benefits, anesthesia, and post-operative care. Again advised that this does not guarantee that he will not develop infection following the surgery, there is always a risk of infection with surgery, especially being diabetic. He states understanding of this. He remains afebrile, and WBC is trending down. Will plan for surgery tomorrow as discussed, amputation of the left 2nd toe. Will obtain consent for amputation of the left second toe. He will be placed NPO after midnight tonight. A new dressing of gauze, kerlix, and tape is applied today. Will continue with current antibiotics and will adjust as needed following surgical cultures. Will discuss discharge home following surgery, but plan for at least one overnight in the hospital following his surgery. Will continue to follow closely in his care. - Problems/Diagnosis (1) Acute osteomyelitis of toe of left foot Problem: Acute
[2020-07-21] MEDS: SACCHAROMYCES BOULARDII 250 MG CAPSULE PO SCH (20:09)
[2020-07-21] MEDS: AMITRIPTYLINE HCL 50 MG TABLET PO SCH (20:09)
[2020-07-21] MEDS: traZODone HCL 50 MG TABLET PO SCH (20:09)
[2020-07-21] MEDS: LEVOFLOXACIN IN DEXTROSE 5 % 750 MG/150 ML BAG IV SCH (20:56)
[2020-07-21] MEDS: MELATONIN 3,000 MCG TABLET PO PRN (21:22)
[2020-07-22] MEDS: HYDROmorphone HCL 1 MG/ML DISP.SYRIN IV PRN ×8 (02:50→20:18)
[2020-07-22] MEDS: CLINDAMYCIN IN 0.9 % SOD CHLOR 600 MG/50 ML BAG IV SCH (03:32)
[2020-07-22] MEDS: LORazepam 1 MG TABLET PO PRN ×2 (07:27→16:00)
[2020-07-22 07:37] LABS: Hematocrit 41.1 % (42.0-52.0); Hemoglobin 12.7 gm/dL (13.5-18.0); Mean Cell Volume 92.6 fl (78-100); Mean Corpuscular Hemoglobin 28.6 pg (27-31); Mean Corpuscular Hgb Conc 30.9 g/dl (32-36); Mean Platelet Volume 10.9 fl (8-11.3); Neutrophil # 8.6 K/mm3 (1.3-6.0); Neutrophil % 69.1 % (42-75.0); Platelet Count 453 K/mm3 (150-450); Red Blood Count 4.44 M/mm3 (4.7-6.0); Red Cell Distribution Width 12.2 % (11.5-14.0); White Blood Count 12.4 K/mm3 (4.0-10.5)
[2020-07-22 07:47] LABS: Albumin * 2.9 gm/dl (3.4-5.0); Anion Gap 12.5 mmol/L (6.8-13.8); Bilirubin, Total 0.3 mg/dL (0.0-1.1); Ca. Corrected For Albumin 10.4 mg/dL (8.4-10.2); Calcium * 9.8 mg/dL (7.9-10.9); Carbon Dioxide 26.8 mmol/L (24-32.6); Potassium 5.3 mmol/L (3.4-4.6); Total Protein 8.1 gm/dL (6.2-8.2)
--- NOTE | 2020-07-22 08:15 | PN ---
Subjective - Date and Time Seen Date: 07/22/20 Time: 08:20 Subjective Narrative: Patient has no new concerns this morning. No significant changes from yesterday. Objective - Review of Systems Generalized/Overall Review: Denies: Fever Respiratory: Reports: No Symptoms Reported Cardiac: Reports: No Symptoms Reported, Edema Abdominal: Reports: No Symptoms Reported, Vomiting Genitourinary Symptoms: Reports: No Symptoms Reported Musculoskeletal Complaints: Reports: Other - left foot pain Neurological: Reports: No Symptoms Reported - Vitals Vitals: Last Vital Signs Temp 36.6 C 07/22/20 06:00 Pulse 60 07/22/20 06:00 Resp 18 07/22/20 06:00 BP 125/70 07/22/20 06:00 Pulse Ox 95 07/22/20 06:00 - Abnormal Lab Findings Abnormal Lab Findings: Abnormal Lab Results 07/22/20 07/22/20 Range/Units 07:15 07:15 WBC 12.4 H (4.0-10.5) K/mm3 RBC 4.44 L (4.7-6.0) M/mm3 Hgb 12.7 L (13.5-18.0) gm/dL Hct 41.1 L (42.0-52.0) % MCHC 30.9 L (32-36) g/dl Plt Count 453 H (150-450) K/mm3 Immature Gran % (Auto) 1.20 H (0.001-0.429) % Immature Gran # (Auto) 0.15 H (0.000-0.0310) K/mm3 Eosinophils % 3.1 H (0.0-3.0) % Neutrophils # 8.6 H (1.3-6.0) K/mm3 Potassium 5.3 H (3.4-4.6) mmol/L Random Glucose 172 H (70-110) mg/dL Calcium Adj for Albumin 10.4 H (8.4-10.2) mg/dL AST 60 H (0-48) U/L ALT 83 H (19-67) U/L Alkaline Phosphatase 374 H (50-170) U/L Albumin 2.9 L (3.4-5.0) gm/dl - Exam Constitutional: Present: Alert, Cooperative, No distress, Obese Respiratory: Present: lungs clear, normal breath sounds Cardiovascular/Chest: Present: regular rate, rhythm Abdomen: Present: soft, tender - chronic, since abscess 2 years ago Extremity: Absent: lower extremity edema Skin Exam: Present: other - left foot wrapped in kerlex with no strikethrough visible Eye contact: Present: cooperative, good eye contact Assessment/Plan Plan Narrative: Surgery scheduled this afternoon for amputation of left 2nd toe for osteomyelitis. Discussed post op pain control, with the goal of switching to po meds as soon as possible. If pain is controlled, DC could be as soon as tomorrow. Clindamycin and levaquin are covering many of the same organisms, so will hold the clindamycin. Will give 500 cc NS this morning for his hyperkalemia. He has not regularly used alcohol the last few months. His psychiatrist has him on a regimen that's helping his mood. - Problems/Diagnosis (1) Acute osteomyelitis of toe of left foot Problem: Acute (2) Diabetes mellitus with hyperglycemia Problem: Chronic Qualifiers: (3) Hyperkalemia Problem: Acute (4) Abnormal LFTs Problem: Chronic (5) Fibromyalgia Problem: Chronic (6) Bipolar I disorder, moderate, current or most recent episode depressed, with anxious distress Problem: Chronic (7) Anxiety Problem: Chronic (8) Alcohol abuse Problem: Chronic (9) BMI 40.0-44.9, adult Problem: Chronic
[2020-07-22] MEDS ORDERED: LITHIUM CARBONATE 300 MG CAPSULE PO SCH (09:00)
[2020-07-22] MEDS: metFORMIN HCL 500 MG TABLET PO SCH ×2 (09:45→17:32)
[2020-07-22] MEDS: SACCHAROMYCES BOULARDII 250 MG CAPSULE PO SCH ×2 (09:45→20:48)
[2020-07-22] MEDS: GABAPENTIN 400 MG CAPSULE PO SCH ×4 (09:46→20:48)
[2020-07-22] MEDS: INSULIN GLARGINE,HUM.REC.ANLOG 100 UNITS/ML VIAL SC SCH (09:49)
[2020-07-22] MEDS: INSULIN LISPRO 100 UNITS/ML VIAL SC SCH ×4 (09:53→21:08)
[2020-07-22] MEDS: NORMAL SALINE 500 ML IV PRN ×2 (10:01→13:30)
[2020-07-22] MEDS: ARIPIPRAZOLE 2 MG PO SCH (10:04)
[2020-07-22] MEDS: DESVENLAFAXINE ER 100 MG PO SCH (10:05)
[2020-07-22] MEDS: PROPRANOLOL HCL 20 MG TABLET PO SCH ×3 (10:05→17:32)
[2020-07-22] MEDS: LISINOPRIL 10 MG TABLET PO SCH (10:10)
[2020-07-22] MEDS ORDERED: BUPIVACAINE HCL 50 ML VIAL IJ ONE ×2 (12:01→13:05)
[2020-07-22] MEDS ORDERED: LIDOCAINE HCL 50 ML VIAL ONE (12:01)
[2020-07-22] MEDS ORDERED: PROPOFOL VIAL IV ONE (12:06)
--- NOTE | 2020-07-22 12:09 | ANES ---
Anesthesia Pre Procedure Eval Vitals/Labs: Last Vital Signs Temp 36.6 C 07/22/20 09:57 Pulse 60 07/22/20 10:05 Resp 16 07/22/20 09:57 BP 115/69 07/22/20 10:05 Pulse Ox 96 07/22/20 09:57 HOME MEDICATIONS Cholecalciferol [Vitamin D] 10,000 unit PO Q7D 11/22/19 [Last Taken Unknown] lorazepam 2 mg tablet 2 mg PO Q6H PRN #60 tab 12/13/19 [Last Taken Unknown] propranolol 20 mg tablet 20 mg PO TID #90 tab 12/13/19 [Last Taken Unknown] metformin 500 mg tablet 500 mg PO BID #60 tab 06/01/20 [Last Taken Unknown] Aripiprazole 2 mg PO DAILY 06/10/20 [Last Taken Unknown] Desvenlafaxine Fumarate [Desvenlafaxine Fumarate ER] 100 mg PO HS 06/10/20 [Last Taken Unknown] Insulin Glargine,Hum.rec.anlog [Sofíaaglrajesh May U-100 Insulin] 24 unit SUBCUT DAILY 06/10/20 [Last Taken Unknown] Melatonin 3,000 mcg PO HS PRN 06/10/20 [Last Taken Unknown] traZODone HCL [Trazodone HCl] 200 mg PO HS 06/10/20 [Last Taken Unknown] tramadol 50 mg tablet 100 mg PO Q6H #24 tab 07/13/20 [Last Taken Unknown] Amitriptyline HCl [Elavil] 50 mg PO HS 07/17/20 [Last Taken Unknown] Aspirin [Aspirin EC] 325 mg PO DAILY 07/17/20 [Last Taken Unknown] Gabapentin 800 mg PO QID 07/17/20 [Last Taken Unknown] Lisinopril [Prinivil] 10 mg PO DAILY 07/17/20 [Last Taken Unknown] [place] Carbonate [[place] Carbonate ER] 600 mg PO QPM 07/18/20 [Last Taken Unknown] Allergies/Adverse Reactions: Allergies Allergy/AdvReac Type Severity Reaction Status Date / Time quetiapine [From Seroquel] AdvReac Unknown delirium Verified 12/13/19 09:55 - Planned Procedure Planned Procedure: acute osteomyelitis/amputation left 2nd toe foot Medication List Reviewed:: Yes Allergies Verified: Yes Medical History (Last Reviewed 07/22/20 @ 12:08 by Stevenson Cheema CRNA) Diabetes mellitus type 2, insulin dependent Encounter for management of vacuum-assisted closure (VAC) of wound Onset Date: ~2017 Anxiety Onset Date: ~09/01/16 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 09/18/17 Benign essential HTN Onset Date: ~2012 Bipolar illness Onset Date: ~08/16/16 Depression Onset Date: ~04/28/17 Diabetes mellitus Onset Date: ~2012 Diabetic skin ulcer Onset Date: ~05/09/17 Erectile dysfunction Onset Date: ~08/16/16 Fibromyalgia Onset Date: ~06/10/16 Ileostomy present Onset Date: ~09/2017 Insomnia Onset Date: ~06/16/16 sleep study 05/01/11: AHI 3/hr, lowest O2 sat 82%, FMCH Ischemic colon Metabolic syndrome Onset Date: ~06/10/16 Obesity Onset Date: ~06/10/16 Panic disorder Onset Date: ~09/07/16 Perleche Onset Date: ~07/11/16 Stiffness due to immobility Onset Date: ~08/16/16 Vitamin D deficiency Onset Date: ~05/09/17 Alcohol abuse, 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 2015 Bipolar disorder, current episode manic without psychotic features (Resolved) With anxious distress Benzodiazepine abuse (Inactive) Surgical History (Last Reviewed 07/22/20 @ 12:09 by Stevenson Cheema CRNA) H/O skin graft H/O rhinoplasty Onset Date: ~2005 H/O wisdom tooth extraction Onset Date: ~2006 History of exploratory laparotomy Onset Date: ~09/2017 History of right hemicolectomy Onset Date: ~09/2017 Family History (Last Reviewed 07/22/20 @ 12:09 by Stevenson Cheema CRNA) Brother Alive and well Brother Alive and well Brother Alive and well Father Hypertension Diabetes Mother Alive and well Child Alive and well - Family Anesthesia History Family History:: no untoward family reactions to anesthesia - Airway/Neck/Teeth Denture Type: Full upper, Full lower Neck Exam: full range of motion Mallampatti Score: 2 Thyromental (T-M) distance: > 6 cm Mandibulo Hyoid distance: > 3 cm - Respiratory Respiratory Physical: lungs clear Smoking Status: Never smoker Sleep Apnea currently treated: No Sleep Apnea by current assessment: No - Cardiovascular Tolerate Activity: Fair Heart Sounds: S1 & S2, Regular - Gastrointestinal NPO since: MN - Anesthesia Assessment and Plan ASA Class: PS, III Anesthesia Type Plan: MAC Planned difficult intubation/equipment available: No
[2020-07-22] MEDS ORDERED: LIDOCAINE HCL 50 ML VIAL IJ ONE (13:05)
--- NOTE | 2020-07-22 13:53 | ANES ---
Post Anesthesia Discharge - Transfer of Care Transfer of Care handoff given to nurse: Yes - Anesthesia Post Op Note Anesthesia Post Op Note: Care transferred to med-ophthalmic surgeon
--- NOTE | 2020-07-22 13:53 | ANES ---
Post Anesthesia Assessment - Vital Signs Vitals: Last Vital Signs Temp 36.6 C 07/22/20 09:57 Pulse 60 07/22/20 10:05 Resp 16 07/22/20 09:57 BP 115/69 07/22/20 10:05 Pulse Ox 96 07/22/20 09:57 Airway Patency: Normal - Mental Status Level Of Consciousness: Awake - Pain Level Pain Score: 0 - N/V Assessment Nausea/Vomiting Presence: None Dehydration:: No
--- NOTE | 2020-07-22 14:54 | OR ---
Operative Report - Dictated Report Narrative: OPERATIVE REPORT Date of Surgery: 07/22/2020 Time of Surgery: 1250 Surgeon: Rosario Wylie DPM System Integration Engineer: None Preoperative Diagnosis: gangrene, osteomyelitis left second toe Postoperative Diagnosis: gangrene, osteomyelitis left second toe Procedure: Amputation left second toe Pathology: Amputated left second toe is sent to pathology for further evaluation. A portion of the bone from the amputated toe is also sent for culture. Anesthesia: Local with Monitored Anesthesia Care Hemostasis: Pneumatic ankle tourniquet at 250 mmHg of pressure Estimated Blood Loss: Minimal Materials: 2-0 Vicryl suture, 3-0 Nylon suture Injectables: 20 mL of a 1:1 mix of 1% lidocaine and 0.5% Marcaine without Epinephrine Complications: None Procedure in Detail: Patient was brought into the operating room and placed on the operating table in the supine position. Pneumatic ankle tourniquet was placed about the patient's left ankle. Following IV sedation, local anesthesia was obtained about the base of the left second metatarsal utilizing a total of 20 mL of a 1:1 mix of 1% lidocaine plain and 0.5% Marcaine plain. The foot was then scrubbed prepped and draped in the usual aseptic manner. [place] was then utilized to exsanguinate the patient's left foot and the pneumatic ankle tourniquet was inflated. Attention was directed to the second toe of the left foot where a fishmouth type incision was made encompassing the base of the second toe. Incision was directed from dorsal to plantar. Incision was made directly down to the level of bone. Once incision was made, dissection was continued to the level of the metatarsal phalangeal joint utilizing both sharp and blunt dissection. Once the metatarsal phalangeal joint was identified, the second toe was disarticulated at this level. The toe was freed of all of its surrounding soft tissues and was removed in its entirety. A portion of bone was then removed from the tip of the second toe and this will be sent for culture. The remainder of the toe will be sent to pathology for further evaluation and to assess for clean margins. Attention was redirected back to the surgical site where all necrotic and devitalized tissue was completely excised utilizing a forceps and a tenotomy scissor. Once all necrotic tissue had been excised the wound was flushed with sterile normal saline. Tissues were reinspected to assess for any remaining devitalized tissue that may be present and none was appreciated. The wound was flushed one final time with copious amounts of sterile normal saline. All subcutaneous tissues were then re-approximated and coapted utilizing 2-0 Vicryl suture. The skin was re-approximated coapted utilizing 3-0 nylon in a simple interrupted suture technique. Following completion of this procedure, the incision was covered with Adaptic and dressed with a sterile compressive dressing consisting of 4 x 4's and Sascha, secured with an LYDIA bandage. The pneumatic ankle tourniquet was deflated and prompt hyperemic response was noted to all remaining digits of the left foot. A postoperative shoe was then applied. Patient tolerated procedure and anesthesia well. He was transferred back to his room on the [facility] floor with vital signs stable and vascular status intact all remaining toes of the left foot. He was transferred back to his room with the following written and oral postoperative instructions: 1. Keep the dressing clean dry and intact. Dressing may be reinforced if needed for any strike-through bleeding. Nursing to contact my office for any excessive bleeding through the dressings. 2. Avoid excessive ambulation on the left foot 3. Ice and elevate the left foot while at rest 4. Wear surgical shoe on the left foot at all times while ambulating 5. Continue current antibiotics and pain medications
[2020-07-22] MEDS: HYDROmorphone HCL 2 MG TABLET PO PRN (18:48)
[2020-07-22] MEDS: MELATONIN 3,000 MCG TABLET PO PRN (20:46)
[2020-07-22] MEDS: ACETAMINOPHEN 500 MG TABLET PO PRN (20:46)
[2020-07-22] MEDS: LEVOFLOXACIN IN DEXTROSE 5 % 750 MG/150 ML BAG IV SCH (20:47)
[2020-07-22] MEDS: traZODone HCL 50 MG TABLET PO SCH (20:49)
[2020-07-22] MEDS: AMITRIPTYLINE HCL 50 MG TABLET PO SCH (20:49)
[2020-07-23] MEDS: HYDROmorphone HCL 2 MG TABLET PO PRN ×6 (02:46→23:09)
[2020-07-23 06:39] LABS: Hematocrit 39.8 % (42.0-52.0); Hemoglobin 12.3 gm/dL (13.5-18.0); Mean Cell Volume 91.3 fl (78-100); Mean Corpuscular Hemoglobin 28.2 pg (27-31); Mean Corpuscular Hgb Conc 30.9 g/dl (32-36); Mean Platelet Volume 10.8 fl (8-11.3); Neutrophil # 12.3 K/mm3 (1.3-6.0); Neutrophil % 79.9 % (42-75.0); Platelet Count 419 K/mm3 (150-450); Red Blood Count 4.36 M/mm3 (4.7-6.0); Red Cell Distribution Width 12.1 % (11.5-14.0); White Blood Count 15.4 K/mm3 (4.0-10.5)
[2020-07-23 06:51] LABS: Albumin * 2.9 gm/dl (3.4-5.0); Anion Gap 14.6 mmol/L (6.8-13.8); BUN/Creatinine Ratio 14.8 (9.0-21.6); Bilirubin, Total 0.4 mg/dL (0.0-1.1); Calcium * 9.4 mg/dL (7.9-10.9); Carbon Dioxide 24.2 mmol/L (24-32.6); Potassium 4.8 mmol/L (3.4-4.6); Total Protein 7.8 gm/dL (6.2-8.2)
[2020-07-23] MEDS: LORazepam 1 MG TABLET PO PRN ×3 (06:58→19:14)
[2020-07-23] MEDS: INSULIN LISPRO 100 UNITS/ML VIAL SC SCH ×4 (07:35→21:25)
[2020-07-23] MEDS: ARIPIPRAZOLE 2 MG PO SCH (08:28)
[2020-07-23] MEDS: GABAPENTIN 400 MG CAPSULE PO SCH ×4 (08:29→21:19)
[2020-07-23] MEDS: SACCHAROMYCES BOULARDII 250 MG CAPSULE PO SCH ×2 (08:29→21:19)
[2020-07-23] MEDS: DESVENLAFAXINE ER 100 MG PO SCH (08:31)
[2020-07-23] MEDS: metFORMIN HCL 500 MG TABLET PO SCH ×2 (08:32→17:16)
[2020-07-23] MEDS: PROPRANOLOL HCL 20 MG TABLET PO SCH ×3 (08:32→17:16)
[2020-07-23] MEDS: INSULIN GLARGINE,HUM.REC.ANLOG 100 UNITS/ML VIAL SC SCH (08:34)
[2020-07-23] MEDS: traMADol HCL 50 MG TABLET PO SCH ×3 (08:38→21:24)
--- NOTE | 2020-07-23 09:11 | PN ---
Alex Note - Interim Date: 07/23/20 Time: 08:10 Narrative: 07/23/20 09:09 Patient still had significant pain overnight. WBC and neutrophils increased this morning. Will change his dilaudid dose to 2 mg, and discussed using that for up to 3 days. will restart his home tramadol. Recheck CBC this afternoon, and if it's improved from this morning, may DC later today. The increase may have been from surgery. If CBC worsens, will add back clindamycin.
[2020-07-23] MEDS: ACETAMINOPHEN 500 MG TABLET PO PRN (13:11)
[2020-07-23 13:32] LABS: Hematocrit 40.2 % (42.0-52.0); Hemoglobin 12.4 gm/dL (13.5-18.0); Mean Cell Volume 91.6 fl (78-100); Mean Corpuscular Hemoglobin 28.2 pg (27-31); Mean Corpuscular Hgb Conc 30.8 g/dl (32-36); Mean Platelet Volume 10.8 fl (8-11.3); Neutrophil # 13.3 K/mm3 (1.3-6.0); Neutrophil % 78.8 % (42-75.0); Platelet Count 491 K/mm3 (150-450); Red Blood Count 4.39 M/mm3 (4.7-6.0); Red Cell Distribution Width 12.2 % (11.5-14.0)
--- NOTE | 2020-07-23 13:40 | PN ---
Subjective - Date and Time Seen Date: 07/23/20 Subjective Narrative: Patient is seen today resting comfortably in bed. States he had a significant amount of pain through the night as the local anesthetic wore off, but states at the time of visit pain is well controlled. Dressing is clean, dry, and intact to the left foot. He is elevating as instructed and has been resting as much as possible. His WBC has elevated since yesterday, which could be due to surgical stress. Repeat labs have been ordered by Dr. Herron for this afternoon. He remains afebrile, no chills. No other concerns. Objective - Review of Systems Generalized/Overall Review: Denies: Chills, Fever Respiratory: Denies: Shortness of Breath Cardiac: Reports: Edema - improving Abdominal: Denies: Nausea, Vomiting, Diarrhea Musculoskeletal Complaints: Reports: Other - left foot pain Skin: Reports: Other - incision left foot following amputation; erythema left foot - improving Endocrine: Denies: Intolerance to Cold, Intolerance to Heat, Increased Hunger, Increased Thirst - Vitals Vitals: Last Vital Signs Temp 37.3 C 07/23/20 10:38 Pulse 81 07/23/20 13:20 Resp 16 07/23/20 10:38 BP 140/82 H 07/23/20 13:20 Pulse Ox 98 07/23/20 10:38 - Abnormal Lab Findings Abnormal Lab Findings: Abnormal Lab Results 07/23/20 07/23/20 Range/Units 06:30 06:30 WBC 15.4 H D (4.0-10.5) K/mm3 RBC 4.36 L (4.7-6.0) M/mm3 Hgb 12.3 L (13.5-18.0) gm/dL Hct 39.8 L (42.0-52.0) % MCHC 30.9 L (32-36) g/dl Immature Gran % (Auto) 0.80 H (0.001-0.429) % Immature Gran # (Auto) 0.12 H (0.000-0.0310) K/mm3 Neutrophils % 79.9 H (42-75.0) % Lymphocytes % 11.7 L (20-51) % Neutrophils # 12.3 H (1.3-6.0) K/mm3 Potassium 4.8 H (3.4-4.6) mmol/L Anion Gap 14.6 H (6.8-13.8) mmol/L Random Glucose 176 H (70-110) mg/dL AST 53 H (0-48) U/L ALT 79 H (19-67) U/L Alkaline Phosphatase 372 H (50-170) U/L Albumin 2.9 L (3.4-5.0) gm/dl - Exam Exam Narrative: Dressing to left foot is clean, dry, and intact. There is minimal bloody drainage within the dressing following surgery yesterday. Incision at amputation site well approximated, sutures intact. Skin is pink in color, brisk color return. There is a slight amount of erythema noted at the dorsum of the foot at the level of the 2nd metatarsal head, but this has nearly resolved following surgery. Area with significant tenderness. Erythema about the remainder of the foot has resolved. Skin no longer with increase in temperature. Constitutional: Present: Alert, Oriented x3, Cooperative Extremity: Present: pedal edema - minimal - improving following surgery, can see normal skin lines on feet, other - left foot pain at incision site following amputation of 2nd toe yesterday Skin Exam: Present: other - see details above Appearance: Present: appropriate appearance Eye contact: Present: cooperative Assessment/Plan Plan Narrative: Patient appears to be progressing as expected following surgery yesterday. Incision remains well approximated, sutures intact. Skin is pink in color with good color return. Erythema to the foot resolved, only remaining erythema at the area of the 2nd metatarsal head dorsally and this is near resolved following surgery. A new dry, sterile dressing is applied to the foot today. This is to remain clean, dry and intact. May be reinforced if needed for bleeding. Continue to elevate extremity frequently, may apply ice to the area as needed, not to exceed 20 minutes in one hour. He may bear weight on this foot in a surgical shoe, but encourage minimized weight bearing activities to reduce swelling and stress over the incision. Culture results are reviewed with patient, consistent with swab culture results from ER, growing Group G Strep. Unable to obtain sensitivities on this bacteria. Will continue on Levaquin. His WBC has trended up since yesterday, which could be secondary to surgical stress. Pending repeat CBC this afternoon, agree with Dr. Herron on placing back on clindamycin, as he had been showing good progress on both of these medications. Pain was not well controlled through the night, but with adjustments he appears to be comfortable at the time of visit. Will continue pain medication regimen as per Dr. Herron's recommendations, appreciate her management of this. Discharge home with stable per Dr. Herron. I will continue to follow closely in his care. Will plan follow up in my office next week. - Problems/Diagnosis (1) Acute osteomyelitis of toe of left foot Problem: Acute
--- NOTE | 2020-07-23 14:43 | PN ---
Subjective - Date and Time Seen Date: 07/23/20 Time: 14:43 Subjective Narrative: Pain has still been significant overnight, almost feeling like torture. Otherwise, no new concerns. Home tramadol restarted, and he was reassessed in the afternoon, and his pain is better controlled with that tramadol. Objective - Review of Systems Generalized/Overall Review: Reports: No Symptoms Reported, Fever Respiratory: Reports: No Symptoms Reported Cardiac: Reports: No Symptoms Reported Abdominal: Reports: No Symptoms Reported Genitourinary Symptoms: Reports: No Symptoms Reported Musculoskeletal Complaints: Reports: Other - left foot pain - Vitals Vitals: Last Vital Signs Temp 36.9 C 07/23/20 13:30 Pulse 93 07/23/20 13:30 Resp 24 H 07/23/20 13:30 BP 111/68 07/23/20 13:30 Pulse Ox 98 07/23/20 13:30 - Abnormal Lab Findings Abnormal Lab Findings: Abnormal Lab Results 07/23/20 07/23/20 07/23/20 Range/Units 06:30 06:30 13:15 WBC 15.4 H D 17.0 H (4.0-10.5) K/mm3 RBC 4.36 L 4.39 L (4.7-6.0) M/mm3 Hgb 12.3 L 12.4 L (13.5-18.0) gm/dL Hct 39.8 L 40.2 L (42.0-52.0) % MCHC 30.9 L 30.8 L (32-36) g/dl Plt Count 491 H (150-450) K/mm3 Immature Gran % (Auto) 0.80 H 0.70 H (0.001-0.429) % Immature Gran # (Auto) 0.12 H 0.12 H (0.000-0.0310) K/mm3 Neutrophils % 79.9 H 78.8 H (42-75.0) % Lymphocytes % 11.7 L 13.0 L (20-51) % Neutrophils # 12.3 H 13.3 H (1.3-6.0) K/mm3 Monocytes # 1.1 H (0.0-1.0) k/mm3 Potassium 4.8 H (3.4-4.6) mmol/L Anion Gap 14.6 H (6.8-13.8) mmol/L Random Glucose 176 H (70-110) mg/dL AST 53 H (0-48) U/L ALT 79 H (19-67) U/L Alkaline Phosphatase 372 H (50-170) U/L Albumin 2.9 L (3.4-5.0) gm/dl - Exam Constitutional: Present: Alert, Cooperative, Young, Obese Respiratory: Present: lungs clear, normal breath sounds, no respiratory distress Cardiovascular/Chest: Present: regular rate, rhythm Abdomen: Present: tender - baseline since abdominal surgery 2 years ago Extremity: Present: other - left foot wrapped in LYDIA wrap and in post-op shoe. Absent: lower extremity edema Eye contact: Present: cooperative, good eye contact Assessment/Plan Plan Narrative: He is POD #1 left 2nd toe amputation for osteomyelitis. WBC increased this morning from 12.4 to 15.4, and further increased to 17.0 this afternoon. Bone culture growing heavy group G strep. Suspect it may be resistant to levaquin. Will change to cefdinir and recheck WBC in the morning. His pain is better controlled with home tramadol and po dilaudid. If WBC improves tomorrow, he will be ok to DC. - Problems/Diagnosis (1) Acute osteomyelitis of toe of left foot Problem: Acute (2) Diabetes mellitus with hyperglycemia Problem: Chronic Qualifiers: Narrative: Well controlled. Glucose has been in the 100's. (3) Hyperkalemia Problem: Acute Narrative: Improved after fluids yesterday. K+ of 4.8 today. (4) Abnormal LFTs Problem: Chronic Narrative: improving (5) Fibromyalgia Problem: Chronic (6) Bipolar I disorder, moderate, current or most recent episode depressed, with anxious distress Problem: Chronic (7) Anxiety Problem: Chronic (8) Alcohol abuse Problem: Chronic Narrative: he has not been drinking alcohol regularly prior to this admission, so this is under better control than last fall. (9) BMI 40.0-44.9, adult Problem: Chronic
[2020-07-23] MEDS: CEFDINIR 300 MG CAPSULE PO SCH ×2 (15:00→21:19)
[2020-07-23] MEDS ORDERED: LEVOFLOXACIN 750 MG TABLET PO SCH ×2 (21:00)
[2020-07-23] MEDS: AMITRIPTYLINE HCL 50 MG TABLET PO SCH (21:19)
[2020-07-23] MEDS: traZODone HCL 50 MG TABLET PO SCH (21:19)
[2020-07-23] MEDS: MELATONIN 3,000 MCG TABLET PO PRN (21:24)
[2020-07-24] MEDS: traMADol HCL 50 MG TABLET PO SCH ×2 (03:09→09:15)
[2020-07-24] MEDS: HYDROmorphone HCL 2 MG TABLET PO PRN ×2 (03:10→07:19)
[2020-07-24] MEDS: LORazepam 1 MG TABLET PO PRN ×2 (03:10→09:31)
[2020-07-24 07:06] LABS: Hematocrit 38.3 % (42.0-52.0); Hemoglobin 11.8 gm/dL (13.5-18.0); Mean Cell Volume 92.5 fl (78-100); Mean Corpuscular Hemoglobin 28.5 pg (27-31); Mean Corpuscular Hgb Conc 30.8 g/dl (32-36); Mean Platelet Volume 10.7 fl (8-11.3); Neutrophil # 8.5 K/mm3 (1.3-6.0); Neutrophil % 65.2 % (42-75.0); Platelet Count 447 K/mm3 (150-450); Red Blood Count 4.14 M/mm3 (4.7-6.0); Red Cell Distribution Width 12.2 % (11.5-14.0)
[2020-07-24 07:18] LABS: Albumin * 2.9 gm/dl (3.4-5.0); Anion Gap 11.7 mmol/L (6.8-13.8); BUN/Creatinine Ratio 13.2 (9.0-21.6); Bilirubin, Total 0.3 mg/dL (0.0-1.1); Ca. Corrected For Albumin 10.1 mg/dL (8.4-10.2); Calcium * 9.5 mg/dL (7.9-10.9); Carbon Dioxide 25.5 mmol/L (24-32.6); Potassium 4.2 mmol/L (3.4-4.6); Total Protein 7.7 gm/dL (6.2-8.2)
[2020-07-24] MEDS: ACETAMINOPHEN 500 MG TABLET PO PRN (07:20)
[2020-07-24] MEDS: INSULIN LISPRO 100 UNITS/ML VIAL SC SCH (07:49)
--- NOTE | 2020-07-24 08:43 | DS ---
(1) Acute osteomyelitis of toe of left foot Problem: Acute (2) Diabetes mellitus with hyperglycemia Problem: Chronic Qualifiers: (3) Hyperkalemia Problem: Resolved (4) Abnormal LFTs Problem: Chronic (5) Fibromyalgia Problem: Chronic (6) Bipolar I disorder, moderate, current or most recent episode depressed, with anxious distress Problem: Chronic (7) Anxiety Problem: Chronic (8) Alcohol abuse Problem: Chronic (9) BMI 40.0-44.9, adult Problem: Chronic Date of Discharge:: 07/24/20 Hospital Course: Patient with PMHx of DM presented to the ED for 2 days of left foot redness and pain. He had a necrotic, gangrenous ulceration and was diagnosed with osteomyelitis of the left 2nd toe and started on levaquin and clindamycin. He underwent second toe amputation on 07/23/19, and levaquin continued after surgery. He had significant pain managed with dilaudid and home tramadol. WBC increased after surgery, and antibiotic changed to cefdinir. The day of DC, his pain was controlled on po meds, and WBC improved. Bone culture grew Group G strep. Will DC to complete another week of abx, and asked him to continue probiotics for an additional 2 weeks after completing antibiotics. He had some hyperkalemia while hospitalized and home lisinopril was held. This resolved by the day of DC. He also had mild elevation of alkaline phosphatase and transaminases, also improving by DC. Podiatry recommendations include "sterile dressing is applied to the foot. This is to remain clean, dry and intact. May be reinforced if needed for bleeding. Continue to elevate extremity frequently, may apply ice to the area as needed, not to exceed 20 minutes in one hour. He may bear weight on this foot in a surgical shoe, but encourage minimized weight bearing activities to reduce swelling and stress over the incision." He has a walker at home from previous hospitalization. He denies any other home needs. Procedures Performed: see notes below - Amputation left second toe Results and Findings: Lab Pending Results 07/17/20 21:00: WBC 15.8 H, RBC 4.34 L, Hgb 12.5 L, Hct 39.7 L, MCV 91.5, MCH 28.8, MCHC 31.5 L, RDW 12.2, Plt Count 265, MPV 11.8 H, Immature Gran % (Auto) 0.40, Immature Gran # (Auto) 0.07 H, Neutrophils % 79.1 H, Lymphocytes % 12.0 L, Monocytes % 7.1, Eosinophils % 1.3, Basophils % 0.1, Nucleated RBC % 0.0, Neutrophils # 12.5 H, Lymphocytes # 1.89, Monocytes # 1.1 H, Eosinophils # 0.2, Absolute Basophils 0.0 07/17/20 21:00: Sodium 130 L, Plasma Sodium 133, Potassium 4.1, Chloride 96 L, Carbon Dioxide 27.6, Anion Gap 10.5, BUN 12, Creatinine 1.27, Est GFR (Non-Af Amer) 70, BUN/Creatinine Ratio 9.4, Random Glucose 299 H, Calcium 8.9, Calcium Adj for Albumin 9.2, Total Bilirubin 0.7, AST 22, ALT 38, Alkaline Phosphatase 293 H, Total Protein 7.9, Albumin 3.2 L 07/17/20 21:00: Lactic Acid, Venous 1.9 07/17/20 21:00: ESR 85 H 07/17/20 22:30: SARS-CoV-2 (PCR) Not detected 07/18/20 08:10: WBC 14.3 H, RBC 4.09 L, Hgb 11.6 L, Hct 37.4 L, MCV 91.4, MCH 28.4, MCHC 31.0 L, RDW 12.3, Plt Count 256, MPV 11.6 H, Immature Gran % (Auto) 0.50 H, Immature Gran # (Auto) 0.07 H, Neutrophils % 76.9 H, Lymphocytes % 13.8 L, Monocytes % 7.5, Eosinophils % 1.2, Basophils % 0.1, Nucleated RBC % 0.0, Neutrophils # 11.0 H, Lymphocytes # 1.97, Monocytes # 1.1 H, Eosinophils # 0.2, Absolute Basophils 0.0 07/18/20 08:10: Sodium 131 L, Plasma Sodium 133, Potassium 4.2, Chloride 99, Carbon Dioxide 24.6, Anion Gap 11.6, BUN 9, Creatinine 1.08, Est GFR (Non-Af Amer) 85 D, BUN/Creatinine Ratio 8.3 L, Random Glucose 239 H, Calcium 9.0, Calcium Adj for Albumin 9.6, Total Bilirubin 0.7, AST 20, ALT 31, Alkaline Phosphatase 258 H, Total Protein 7.2, Albumin 2.8 L 07/19/20 05:45: WBC 14.7 H, RBC 3.65 L, Hgb 10.5 L, Hct 34.3 L, MCV 94.0, MCH 28.8, MCHC 30.6 L, RDW 12.5, Plt Count 277, MPV 11.4 H, Neutrophils % (Manual) 71, Lymphocytes % (Manual) 20, Monocytes % (Manual) 7, Eosinophils % (Manual) 1, Immature Granulocytes 1, Neutrophils # (Manual) 10.4 H, Lymphocytes # (Manual) 2.9, Monocytes # (Manual) 1.0, Eosinophils # (Manual) 0.1, Platelet Estimate Normal, RBC Morphology Normal 07/19/20 05:45: Sodium 133, Plasma Sodium 135, Potassium 4.9 H, Chloride 103, Carbon Dioxide 22.7 L, Anion Gap 12.2, BUN 11, Creatinine 1.14, Est GFR (Non-Af Amer) 80, BUN/Creatinine Ratio 9.6, Random Glucose 255 H, Calcium 8.5, Calcium Adj for Albumin 9.5, Total Bilirubin 0.4, AST 17, ALT 27, Alkaline Phosphatase 262 H, Total Protein 6.6, Albumin 2.4 L 07/20/20 06:35: WBC 13.6 H, RBC 3.74 L, Hgb 10.8 L, Hct 34.9 L, MCV 93.3, MCH 28.9, MCHC 30.9 L, RDW 12.4, Plt Count 316, MPV 11.4 H, Immature Gran % (Auto) 0.70 H, Immature Gran # (Auto) 0.10 H, Neutrophils % 71.4, Lymphocytes % 19.8 L, Monocytes % 5.5, Eosinophils % 2.5, Basophils % 0.1, Nucleated RBC % 0.0, Neutrophils # 9.7 H, Lymphocytes # 2.69, Monocytes # 0.8, Eosinophils # 0.3, Absolute Basophils 0.0 07/20/20 06:35: Sodium 138, Plasma Sodium 139, Potassium 4.7 H, Chloride 105, Carbon Dioxide 24.0, Anion Gap 13.7, BUN 7, Creatinine 0.84, Est GFR (Non-Af Am er) 113 D, BUN/Creatinine Ratio 8.3 L, Random Glucose 171 H D, Calcium 8.9, Calcium Adj for Albumin 9.9, Total Bilirubin 0.3, AST 24, ALT 32, Alkaline Phosphatase 325 H, Total Protein 6.9, Albumin 2.4 L 07/21/20 06:23: WBC 12.9 H, RBC 4.01 L, Hgb 11.4 L, Hct 37.1 L, MCV 92.5, MCH 28.4, MCHC 30.7 L, RDW 12.3, Plt Count 364, MPV 10.9, Immature Gran % (Auto) 1.00 H, Immature Gran # (Auto) 0.13 H, Neutrophils % 66.8, Lymphocytes % 21.9, Monocytes % 6.8, Eosinophils % 3.3 H, Basophils % 0.2, Nucleated RBC % 0.0, Neutrophils # 8.6 H, Lymphocytes # 2.82, Monocytes # 0.9, Eosinophils # 0.4, Absolute Basophils 0.0 07/21/20 06:23: Sodium 135, Plasma Sodium 136, Potassium 4.7 H, Chloride 103, Carbon Dioxide 24.8, Anion Gap 11.9, BUN 9, Creatinine 0.83, Est GFR (Non-Af Amer) 115, BUN/Creatinine Ratio 10.8, Random Glucose 157 H, Calcium 9.3, Calcium Adj for Albumin 10.1, Total Bilirubin 0.3, AST 40, ALT 49, Alkaline Phosphatase 331 H, Total Protein 7.2, Albumin 2.6 L 07/22/20 07:15: WBC 12.4 H, RBC 4.44 L, Hgb 12.7 L, Hct 41.1 L, MCV 92.6, MCH 28.6, MCHC 30.9 L, RDW 12.2, Plt Count 453 H, MPV 10.9, Immature Gran % (Auto) 1.20 H, Immature Gran # (Auto) 0.15 H, Neutrophils % 69.1, Lymphocytes % 20.1, Monocytes % 6.3, Eosinophils % 3.1 H, Basophils % 0.2, Nucleated RBC % 0.0, Neutrophils # 8.6 H, Lymphocytes # 2.49, Monocytes # 0.8, Eosinophils # 0.4, Absolute Basophils 0.0 07/22/20 07:15: Sodium 136, Plasma Sodium 137, Potassium 5.3 H, Chloride 102, Carbon Dioxide 26.8, Anion Gap 12.5, BUN 11, Creatinine 0.92, Est GFR (Non-Af Amer) 102, BUN/Creatinine Ratio 12.0, Random Glucose 172 H, Calcium 9.8, Calcium Adj for Albumin 10.4 H, Total Bilirubin 0.3, AST 60 H, ALT 83 H, Alkaline Phosphatase 374 H, Total Protein 8.1, Albumin 2.9 L 07/23/20 06:30: WBC 15.4 H D, RBC 4.36 L, Hgb 12.3 L, Hct 39.8 L, MCV 91.3, MCH 28.2, MCHC 30.9 L, RDW 12.1, Plt Count 419, MPV 10.8, Immature Gran % (Auto) 0.80 H, Immature Gran # (Auto) 0.12 H, Neutrophils % 79.9 H, Lymphocytes % 11.7 L, Monocytes % 5.9, Eosinophils % 1.6, Basophils % 0.1, Nucleated RBC % 0.0, Neutrophils # 12.3 H, Lymphocytes # 1.80, Monocytes # 0.9, Eosinophils # 0.3, Absolute Basophils 0.0 07/23/20 06:30: Sodium 137, Plasma Sodium 138, Potassium 4.8 H, Chloride 103, Carbon Dioxide 24.2, Anion Gap 14.6 H, BUN 12, Creatinine 0.81, Est GFR (Non-Af Amer) 118, BUN/Creatinine Ratio 14.8, Random Glucose 176 H, Calcium 9.4, Calcium Adj for Albumin 10.0, Total Bilirubin 0.4, AST 53 H, ALT 79 H, Alkaline Phosphatase 372 H, Total Protein 7.8, Albumin 2.9 L 07/23/20 13:15: WBC 17.0 H, RBC 4.39 L, Hgb 12.4 L, Hct 40.2 L, MCV 91.6, MCH 28.2, MCHC 30.8 L, RDW 12.2, Plt Count 491 H, MPV 10.8, Immature Gran % (Auto) 0.70 H, Immature Gran # (Auto) 0.12 H, Neutrophils % 78.8 H, Lymphocytes % 13.0 L, Monocytes % 6.6, Eosinophils % 0.8, Basophils % 0.1, Nucleated RBC % 0.0, Neutrophils # 13.3 H, Lymphocytes # 2.21, Monocytes # 1.1 H, Eosinophils # 0.1, Absolute Basophils 0.0 07/24/20 06:30: WBC 13.0 H D, RBC 4.14 L, Hgb 11.8 L, Hct 38.3 L, MCV 92.5, MCH 28.5, MCHC 30.8 L, RDW 12.2, Plt Count 447, MPV 10.7, Immature Gran % (Auto) 0.70 H, Immature Gran # (Auto) 0.09 H, Neutrophils % 65.2, Lymphocytes % 23.7, Monocytes % 7.7, Eosinophils % 2.5, Basophils % 0.2, Nucleated RBC % 0.0, Neutrophils # 8.5 H, Lymphocytes # 3.08, Monocytes # 1.0, Eosinophils # 0.3, Absolute Basophils 0.0 07/24/20 06:40: Sodium 135, Plasma Sodium 137, Potassium 4.2, Chloride 102, Carbon Dioxide 25.5, Anion Gap 11.7, BUN 12, Creatinine 0.91, Est GFR (Non-Af Amer) 103, BUN/Creatinine Ratio 13.2, Random Glucose 206 H, Calcium 9.5, Calcium Adj for Albumin 10.1, Total Bilirubin 0.3, AST 46, ALT 76 H, Alkaline Phosphatase 332 H, Total Protein 7.7, Albumin 2.9 L Discharge Location: Home Disposition: Home self-care Condition: Stable Discharge Activity: Partial-Weight bearing Discharge Diet: Consistent carbs Referrals: Genesis Herron DO [Primary Care Provider] - One Week Prescriptions (Any new or edited meds): HYDROmorphone HCL [Dilaudid] 2 mg PO Q4H PRN #36 tab PRN Reason: Severe Pain (Pain Scale 7-10) Transmission Status: Sent to [facility] Saccharomyces Boulardii [Florastor] 250 mg PO BID #42 cap Transmission Status: Pending to [facility] Cefdinir [Omnicef] 300 mg PO BID #14 cap Transmission Status: Pending to [facility] Complete Home Medications List: Complete Home Medication List: Cholecalciferol [Vitamin D] 10,000 unit PO Q7D 11/22/19 lorazepam 2 mg tablet 2 mg PO Q6H PRN #60 tab 12/13/19 propranolol 20 mg tablet 20 mg PO TID #90 tab 12/13/19 metformin 500 mg tablet 500 mg PO BID #60 tab 06/01/20 Aripiprazole 2 mg PO DAILY 06/10/20 Desvenlafaxine Fumarate [Desvenlafaxine Fumarate ER] 100 mg PO HS 06/10/20 Insulin Glargine,Hum.rec.anlog [Lantus Solostar] 24 unit SUBCUT DAILY 06/10/20 Melatonin 3,000 mcg PO HS PRN 06/10/20 traZODone HCL [Trazodone HCl] 200 mg PO HS 06/10/20 tramadol 50 mg tablet 100 mg PO Q6H #24 tab 07/13/20 Amitriptyline HCl [Elavil] 50 mg PO HS 07/17/20 Aspirin [Aspirin EC] 325 mg PO DAILY 07/17/20 Gabapentin 800 mg PO QID 07/17/20 Lisinopril [Prinivil] 10 mg PO DAILY 07/17/20 [place] Carbonate [[place] Carbonate ER] 600 mg PO QPM 07/18/20 Cefdinir [Omnicef] 300 mg PO BID #14 cap 07/24/20 HYDROmorphone HCL [Dilaudid] 2 mg PO Q4H PRN #36 tab 07/24/20 Saccharomyces Boulardii [Florastor] 250 mg PO BID #42 cap 07/24/20 Forms: Patient Portal Registration
[2020-07-24] MEDS: SACCHAROMYCES BOULARDII 250 MG CAPSULE PO SCH (09:16)
[2020-07-24] MEDS: metFORMIN HCL 500 MG TABLET PO SCH (09:17)
[2020-07-24] MEDS: GABAPENTIN 400 MG CAPSULE PO SCH (09:17)
[2020-07-24] MEDS: PROPRANOLOL HCL 20 MG TABLET PO SCH (09:17)
[2020-07-24] MEDS: CEFDINIR 300 MG CAPSULE PO SCH (09:18)
[2020-07-24] MEDS: INSULIN GLARGINE,HUM.REC.ANLOG 100 UNITS/ML VIAL SC SCH (09:20)
[2020-07-24 09:48] VITALS: BP 127/67
== END 2020-07-24 10:10 | disposition home or self-care (01) | DRG 504 ==
LOC: ER 19:39 → MS 23:35
PROVIDERS: ADMIT Family Medicine; ATTEND Family Medicine